=== PATIENT | female | born 1985 | race Caucasian/White ===

== ENCOUNTER 2020-04-27 16:23 | Emergency (ER) | payer BC, SELFPAY ==
[2020-04-27 16:31] VITALS: BP 111/70; PULSE 87; RESP 16; TEMP 37.2; O2SAT 99
--- NOTE | 2020-04-27 16:38 | ED.SKABFB ---
HPI - Skin/Abscess/Foreign Bdy General Chief complaint: Skin/Abscess/Foreign Body Stated complaint: rash on legs/hip Time Seen by Provider: 04/27/20 16:39 Source: patient and RN notes reviewed Mode of arrival: ambulatory Limitations: no limitations History of Present Illness HPI narrative: This is a 34 years old female presents to the office for an evaluation of skin lesions for a few weeks. She contracted ringworm from her cats. Her doctor prescribed her nystatin which has helped some of her lesions; however she continues to develops new lesions. She googled her symptom and found out that there is oral medication option as treatment for ringworm which prompt her to come here. She thinks it may work better to get rid of her lesions faster than topical medication. Her son and also got it. Related Data Home Medications Medication Instructions Recorded Confirmed medroxyprogesterone [Depo-Provera] 150 mg IM [id number] 04/27/20 04/27/20 venlafaxine [Effexor XR] 75 mg PO DAILY 04/27/20 04/27/20 Allergies Allergy/AdvReac Type Severity Reaction Status Date / Time No Known Allergies Allergy Unverified 12/10/18 12:06 Review of Systems Review of Systems: Narrative: CONSTITUTIONAL: Denies fever, chills ENT: Denies congestion CARDIOVASCULAR: Denies chest pain, palpitation RESPIRATORY: Denies dyspnea, wheezing, cough GASTROINTESTINAL: Denies abdominal pain, nausea, vomiting SKIN: reports itchy round lesions in lower extremities and upper extremities. MUSCULOSKELETAL: Denies acute back pain NEUROLOGIC: Denies lightheaded All other systems reviewed are negative, except as documented in HPI. PMFSH Social History Social History Smoking status: Never smoker Alcohol intake: current Comments At time of signature, I agree with nursing past medical, surgical, social and family history. There is no relevant family history pertinent to the presenting complaint. Exam Narrative: Exam Narrative: GENERAL: This is a well-nourished, well-developed patient, in no apparent distress. CARDIOVASCULAR: Regular rate and rhythm without murmurs, gallops, or rubs. RESPIRATORY: Clear to auscultation. Breath sounds equal bilaterally. No wheezes, rales, or rhonchi. GASTROINTESTINAL: Abdomen soft, non-tender, nondistended. Bowel sounds are active. No hepato-splenomegaly, or palpable masses. No guarding. SKIN: lower extremities noted a few central clearing with raised border lesions, some in oval/augustine shapes consistent with ringworms. NEURO: awake, alert, and oriented to person, place and time. There were no obvious focal neurologic abnormalities. Steady gait EXTREMITIES: Normal range of motion. No edema. [place] Coma Scale Eye Opening: Spontaneous 4 [place] Coma Scale Motor: Obeys Commands 6 Flory Coma Scale Verbal: Oriented 5 Course Vital Signs Vital signs: Vital Signs Temperature 98.9 F 04/27/20 16:31 Pulse Rate 87 04/27/20 16:31 Respiratory Rate 16 04/27/20 16:31 Blood Pressure 111/70 04/27/20 16:31 Pulse Oximetry 99 04/27/20 16:31 Temperature 98.9 F 04/27/20 16:31 Pulse Rate 87 04/27/20 16:31 Respiratory Rate 16 04/27/20 16:31 Blood Pressure 111/70 04/27/20 16:31 Pulse Oximetry 99 04/27/20 16:31 MDM - Skin/Abscess/Foreign Bdy MDM Narrative Medical decision making narrative: Discharge instructions reviewed with patient, as well as provided in writing per nursing staff. The instructions also include specific and strict return/GO TO THE ER as well as f/u information. All questions have been answered, and the patient deny any further questions with discharge and discharge plan. Differential Diagnosis Differential diagnosis: Likely abscess of skin or subcutaneous tissue, urticaria, allergic reaction to drug, cellulitis, eczema, impetigo and contact dermatitis Critical Care Time Critical Care Time Critical Care Time: No Discharge
== END 2020-04-27 17:00 | disposition home or self-care (01) ==
PROVIDERS: Emergency Provider Nurse Practitioner; PCP Internal Medicine
DX: B35.4 Tinea corporis (principal); Z86.711 Personal history of pulmonary embolism; F32.9 Major depressive disorder, single episode, unspecified
CPT/HCPCS: 99213; G0463

== ENCOUNTER 2020-05-15 09:02 | Inpatient (IN) | payer BC, SELFPAY ==
[2020-05-15] VITALS (8 sets, daily range): BP systolic 106–138; BP diastolic 56–96; PULSE 74–97; RESP 16–21; TEMP 36.1–36.8; O2SAT 99–100; BMI 38.5
--- NOTE | ~2020-05-15 | CT_ITS ---
EXAMINATION: CTA chest PE protocol DATE: 05/15/2020 10:43 INDICATION: Shortness of breath and chest pain, history of pulmonary embolism TECHNIQUE: Computed tomography angiography (CTA) of the chest was performed with 100 mL Omnipaque-350 intravenous contrast timed to evaluate the pulmonary arteries. Coronal maximum intensity projection 3D-reconstructions were created by the technologist. The dose-length product (DLP) was 460.18 mGy-cm. Automated exposure control and iterative reconstruction technique were employed. COMPARISON: None. FINDINGS: The pulmonary arteries are moderately well-opacified. There are acute emboli in subsegmenta l pulmonary arterial branches of the right lower lobe. There are areas of dependent atelectasis or sc arring in the right lung. The lungs are free of focal airspace opacities. No pleural effusion or pneu mothorax is identified. No pathologically enlarged thoracic lymph nodes are identified. The heart siz e is normal. There is mild thoracic spondylosis. IMPRESSION: 1. Pulmonary emboli in subsegmental branches of the right lower lobe. These findings were discussed with Dr. Anuradha Anaya MD in the Emergency Department at 1102 hours on 05/15/2020. Reviewed, dictated and finalized at location A. IMPRESSION: 1. Pulmonary emboli in subsegmental branches of the right lower lobe. These findings were discussed with Dr. Anuradha Anaya MD in the Emergency Depar tment at 1102 hours on 05/15/2020.
--- NOTE | ~2020-05-15 | US_ITS ---
EXAMINATION: US venous doppler [facility] DATE: 05/16/2020 11:46 INDICATION: Pulmonary embolism, shortness of breath and chest pain TECHNIQUE: Jefferson scale images without and with compression and Doppler images of the bilateral lower e xtremity veins were obtained. COMPARISON: None FINDINGS: The right common femoral vein, profunda femoral vein, femoral vein, popliteal vein, peroneal trunk, p osterior tibial veins, and greater saphenous vein are patent. The left common femoral vein, profunda femoral vein, femoral vein, popliteal vein, peroneal trunk, po sterior tibial veins, and greater saphenous vein are patent. IMPRESSION: 1. Patent bilateral lower extremity veins. No evidence of deep venous thrombosis. Reviewed, dictated and finalized at location A. IMPRESSION: 1. Patent bilateral lower extremity veins. No evidence of deep venous thrombosi s.
--- NOTE | ~2020-05-15 | XR_ITS ---
EXAMINATION: XR chest 2V DATE: 05/15/2020 10:20 INDICATION: Shortness of breath and chest pain TECHNIQUE: PA and lateral views of the chest are obtained. COMPARISON: None available FINDINGS: The lungs are free of acute opacities. There is no pleural effusion or pneumothorax. The ca rdiomediastinal silhouette is normal. The visualized bones and soft tissues are unremarkable. Surgica l clips in the right upper quadrant are likely from prior cholecystectomy. IMPRESSION: 1. No acute cardiopulmonary abnormality. Reviewed, dictated and finalized at location A.
--- NOTE | 2020-05-15 09:17 | ECG_ITS ---
Measurements Intervals [employer] Rate: 88 P: 2 CT: 121 QRS: 50 QRSD: 87 T: 25 QT: 357 QTc: 433 Interpretive Statements SINUS RHYTHM NORMAL ECG Electronically Signed On 05-15-2020 10:13:25 CDT by Ye Griffin D.O.
--- NOTE | 2020-05-15 09:18 | ED.SOB ---
HPI - SOB/Dyspnea General Chief Complaint: Shortness of Breath/Dyspnea Stated Complaint: sob Time Seen by Provider: 05/15/20 09:06 History of Present Illness HPI Narrative: Patient presents to the ED for chest pain with deep breaths. She points to her left side under the arm. She said is a 7 out of 10. It goes away completely when she stops breathing. She has a history of pneumonia on that side. She also has a history of pulmonary embolus. She has no cough, fever,, sweats. MD elicited complaint: shortness of breath and pain with inspiration Pertinent past history: pneumonia and PE Onset (ago): day(s) Timing: intermittent Severity: moderate Exacerbating factors: deep breaths Relieving factors: nothing Known history of: PE and other (Pneumonia) Associated symptoms: denies other symptoms Treatment prior to arrival: none Related Data Home oxygen amount: none Home Medications Medication Instructions Recorded Confirmed medroxyprogesterone [Depo-Provera] 150 mg IM [id number] 04/27/20 04/27/20 venlafaxine [Effexor XR] 75 mg PO DAILY 04/27/20 04/27/20 Allergies Allergy/AdvReac Type Severity Reaction Status Date / Time No Known Allergies Allergy Unverified 05/15/20 09:14 Review of Systems Review of Systems: Narrative: CONSTITUTIONAL: Denies fever, chills, or sweats. EYES: Denies visual changes, redness, or discharge. ENT: Denies rhinorrhea, congestion, sore throat, or otalgia. CARDIOVASCULAR: She has chest pain, but not palpitations, or edema. RESPIRATORY: Denies cough or dyspnea. GASTROINTESTINAL: Denies abdominal pain, nausea, vomiting, or diarrhea. GENITOURINARY: Denies dysuria or hematuria. SKIN: Denies rash or itching. MUSCULOSKELETAL: Denies back pain, joint pain, or myalgia. NEUROLOGIC: Denies headache, numbness, or weakness. PSYCHIATRIC: Denies anxiety or depression. All systems reviewed & are unremarkable except as noted in HPI and below PMFSH Past Medical History Medical History Depression Pneumonia Pulmonary embolus Surgical History Surgical History (Updated 05/15/20 @ 09:22 by Anuradha Anaya MD) History of History of cholecystectomy Social History Social History Smoking status: Never smoker Alcohol intake: current Gender identity (if verbalized by the patient): Female Exam Narrative: Exam Narrative: GENERAL: Well-appearing, well-nourished, and in no acute distress. [place] color on the tips of her hair. HEAD: Normocephalic, atraumatic. EYES: PERRLA and EOMI. ENT: Nares clear, no rhinorrhea or epistaxis. Mucous membranes moist. NECK: Supple. CHEST: Clear to auscultation. No respiratory distress. HEART: Regular rate and rhythm. No murmur heard. Normal peripheral pulses. ABDOMEN: Soft, nontender, nondistended, normal active bowel sounds. EXTREMITIES: Normal range of motion. No edema. SKIN: Warm, dry, no rash. NEURO: No focal deficits. Alert and oriented x3. PSYCH: Normal mood and affect. Course Reevaluation(s) Reevaluation #1: Went in the room to tell the patient about her pulmonary embolus in the right lower lobe. She understands but is not pleased. Private is Dr. George in [place]. He managed her Coumadin last time. I will call and see whether he wants to manage this outpatient or whether I need to admit her. Reevaluation #2: Unable to reach Dr. George so we will admit her here to start her anticoagulation. Date: 05/15/20 Time: 11:25 Consultations Consultation #1: Calling the hospitalist to admit to start her on anticoagulation therapy for her pulmonary embolus. She had also asked the nurse for something stronger for her pain and I ordered a Percocet. Dr. Cook accepts. Date: 05/15/20 Time: 11:26 Vital Signs Vital signs: Vital Signs Temperature 97.0 F L 05/15/20 09:08 Pulse Rate 87 05/15/20 09:08 Respiratory Rate 18 05/15/20 09:08 Blood Press
[2020-05-15 09:33] LABS: Basophils Percent Auto 0.5 % (0.2-1.2); Eosinophils Absolute Auto 0.1 K/mm3 (0-0.3); Eosinophils Percent Auto 1.4 % (0-4.4); Hematocrit 41.8 % (37.0-47.0); Hemoglobin 13.7 g/dL (12.0-15.0); Immature Granulocyte Absolute 0.02 K/mm3 (0.00-0.031); Immature Granulocyte Percent A 0.3 % (0-0.5); Lymphocytes Absolute Auto 2.59 K/mm3 (0.9-3.2); Lymphocytes Percent Auto 34.1 % (18.3-44.2); Mean Corpuscular HGB Conc 32.8 g/dl (32-36); Mean Corpuscular Hemoglobin 28.8 pg (26-34); Mean Platelet Volume 10.3 fl (7.4-10.4); Monocytes Absolute Auto 0.4 K/mm3 (0.1-0.6); Monocytes Percent Auto 5.4 % (2.6-8.5); Neutrophils Absolute Auto 4.4 K/mm3 (1.3-6.7); Neutrophils Percent Auto 58.3 % (45.5-73.1); Platelet Count Result 242 k/mm3 (150-375); Red Blood Count 4.75 M/mm3 (4.2-5.4); Red Cell Distribution Width 13.2 % (11.5-14.5); White Blood Count 7.6 K/mm3 (4.5-10.0)
[2020-05-15] MEDS: KETOROLAC 15 MG/ML VIAL (*BKC) IV PUSH (09:35)
[2020-05-15 09:45] LABS: Alanine Aminotransferase 33 U/L (4-35); Albumin Level 4.4 g/dL (3.5-5.1); Alkaline Phosphatase 77 U/L (38-126); Anion Gap 8 mmol/L (8-16); Aspartate Amino Transferase 33 U/L (14-36); Bilirubin,Total 0.3 mg/dL (0.2-1.3); Blood Urea Nitrogen 10 mg/dL (7-17); Calcium 9.3 mg/dL (8.4-10.2); Carbon Dioxide 22 mmol/L (22-30); Chloride 107 mmol/L (98-107); Estimated CRCL calculation 122 ml/min; Estimated Glomerular Filt Rate > 60; Glucose 125 mg/dL (65-105); Potassium 4.1 mmol/L (3.4-5.0); Sodium 137 mmol/L (137-145)
[2020-05-15 09:47] LABS: Prothrombin Time 13.3 Seconds (11.1-14.7)
[2020-05-15 09:50] LABS: D Dimer 1.03 ug/mL (<0.48)
[2020-05-15] MEDS: ENOXAPARIN 120 MG/0.8 ML SYRINGE 105 MG SUB-Q (11:19)
[2020-05-15] MEDS: oxyCODONE/ACETAMINOPHEN 5-325 MG TABLET 1 TABLET PO (11:28)
[2020-05-15] MEDS: WARFARIN (*PBKC) 5 MG TABLET PO (11:38)
--- NOTE | 2020-05-15 12:10 | ADMGEN ---
This patient, Dinora Singh, was admitted to Medical Room 252-01. Patient oriented to hospital policies and general routines including ID bracelet, bed and alarms, visiting hours, pain management, procedures, bathroom and other care routines, personal items, smoking policy, room service/diet, and visiting hours. Valuables list has been completed. Information on how to activate the Rapid Response Team has been discussed. Patient are encouraged to report perceived risks to care and to ask questions if they do not understand what they are told or what they should do.
--- NOTE | 2020-05-15 20:31 | PM.IMHP ---
H&P: HPI History of Present Illness Date/Time: 05/15/20 20:31 Chief complaint: Pulmonary embolism Narrative: Dinora Singh is a 34 year old female Who tells me that she has a history of factor v leiden and has had a blood clot in the past. She stated she had been on Coumadin for short period time and then she did subcu Lovenox while she was in did that during her whole . She is not taking any anticoagulation. She was told by willower that she was not supposed to be on any type of per controlled at all. She went to her OBGYN who was giving her Depo-Provera and said it would be okay. We discussed this and I explained that that is 1 the side effects of the Depo-Provera. The patient came into the emergency room today with complaints of chest pain with deep breaths. She points to her left side under the arm. She said it was 7/10. When I went in the room she said it was her right upper chest that was hurting. She said it was a sharp pain in nothing relieved it she said that the pain medicine they gave to early year just to the edge off. She has had history of pneumonia in the past. She also has a history of depression. I spent approximately 35 minutes in the room with the patient. She denies any calf pain but said that she started out with DVTs in the past and then went to her lungs. We had a long discussion about whether not to continue with the Coumadin or switch her to Xarelto. Weeks plain the pros and cons and she decided on Xarelto. date ofservice 05/15/2020 Review of Systems Review of Systems: All systems reviewed & are unremarkable except as noted in HPI and below Constitutional: Constitutional: Reports as per HPI and Reports no additional constitutional complaints Eyes: Eyes: Reports as per HPI and Reports no additional eye complaints ENT: Reports system reviewed and no additional complaints, except as documented and Reports Normal hearing present Cardiovascular: Cardiovascular: Reports no additional cardiovascular complaints Respiratory: Respiratory: Reports no additional respiratory complaints and Reports no additional respiratory complaints Gastrointestinal: Gastrointestinal: Reports as per HPI and Reports no additional gastrointestinal complaints Musculoskeletal: Musculoskeletal: Reports no additional musculoskeletal complaints Integumentary/Breasts: Skin/Breast: Reports system reviewed and no additional complaints, except as docu and Reports as per HPI Neurologic: Reports system reviewed and no additional complaints, except as documented, Reports as per HPI and Reports Normal hearing present Psychiatric: Psychiatric: Reports no additional psychiatric complaints and Reports as per HPI Endocrine: Endocrine: Reports no additional endocrine complaints Hematologic/Lymphatic: Hematologic/Lymphatic: Reports no additional hematologic/lymphatic complaints Allergic/Immunologic: Allergic/Immunologic: Reports no additional allergic/immunologic complaints [facility] Past Medical History Medical History (Updated 05/15/20 @ 20:38 by Dinora Lyn NP) Depression Factor 5 Leiden mutation, heterozygous Pneumonia Pulmonary embolus Surgical History Surgical History (Updated 05/15/20 @ 20:35 by Dinora Lyn NP) History of x1 History of cholecystectomy Family History Family History Grandparent Acute myocardial infarction Cerebrovascular accident Cancer of eye Diabetes mellitus Social History Social History (Updated 05/15/20 @ 20:36 by Dinora Lyn NP) Social History: the patient stated that she used to smoke other people cigarettes but did not find cigarettes on her home. She would just smoke socially and drinks socially. She stated that she would by cigarettes but is somebody else had a cigarette she would smoke it. She smoked marijuana in the past but not recently. Her is a durable power detective [employer] for [employer]
--- NOTE | 2020-05-16 | ECHO_ITS ---
Patient Info Name: Dinora Singh Age: 34 years : 1985 Gender: Female Ht: 66 in Wt: 239 lbs BSA: 2.30 m2 HR: 86 bpm BP: 110 / 64 mmHg Heart Rhythm: Sinus Rhythm Technical Quality: Good Exam Date: 05/16/2020 11:02 AM Exam Location: [facility] Card Pulmonary Patient Status: Inpatient Admit Date: 05/15/2020 Staff Ordering Physician: Dinora Lyn NP Lap Maker: Cole Ordaz RDCS Attending Provider: Kamryn Cook MD Referring Physician: Riki BRUSH; Exam Type: CA echo doppler color flow Study Info Indications I26.99 - Other pulmonary embolism without acute cor pulmonale Complete two-dimensional, color flow and Doppler transthoracic echocardiogram is performed. Strain analysis performed. History/Risk Factors Pulmonary embolism. Summary 1. Left ventricular chamber dimension is normal. 2. Left ventricular systolic function is normal, estimated at 60-65%. 3. The left ventricular diastolic function is normal. 4. E/e' 6 is not elevated. 5. Global longitudinal strain is slightly abnormal at -16.9%. 6. There is trace mitral valve regurgitation. 7. No pulmonary hypertension, estimated pulmonary arterial systolic pressure is 29 mmHg. 8. There is trace pulmonic regurgitation. Left Ventricle E/e' 6 is not elevated. Global longitudinal strain is slightly abnormal at -16.9%. Left ventricular chamber dimension is normal. Left ventricular systolic function is normal, estimated at 60-65%. The left ventricular diastolic function is normal. Right Ventricle Right ventricular chamber dimension is normal. Right ventricular systolic function is normal. Left Atria Left atrial chamber dimension is normal. Right Atria Right atrial chamber dimension is normal. Aortic Valve The aortic valve is trileaflet. There is no aortic valve stenosis. There is no aortic valve regurgitation. Pulmonic Valve There is trace pulmonic regurgitation. Mitral Valve There is no mitral valve stenosis. There is trace mitral valve regurgitation. Tricuspid Valve There is no tricuspid valve regurgitation. No pulmonary hypertension, estimated pulmonary arterial systolic pressure is 29 mmHg. Pericardium/Pleural There is no pericardial effusion. Inferior Vena Cava Normal inferior vena cava with >50% collapse upon inspiration consistent with normal right atrial pressure, 5 mmHg. Aorta The aortic root size at the sinus of Valsalva is normal. Left Ventricular Outflow Tract Name Value Normal LVOT 2D LVOT Diameter 2.0 cm LVOT Doppler LVOT Peak Gradient 3 mmHg LVOT Mean Gradient 2 mmHg LVOT VTI 18 cm LVOT VTI/AV VTI Ratio 0.8 LVOT Stroke Volume 55 ml LVOT CO 4.5 l/min LVOT CI 2.0 l/min/m2 Mitral Valve Name Value Normal
[2020-05-16 05:24] VITALS: BP 110/64; PULSE 79; RESP 16; TEMP 36.7; O2SAT 98
[2020-05-16 05:52] LABS: Basophils Percent Auto 0.5 % (0.2-1.2); Eosinophils Absolute Auto 0.2 K/mm3 (0-0.3); Eosinophils Percent Auto 2.5 % (0-4.4); Hematocrit 37.5 % (37.0-47.0); Hemoglobin 12.5 g/dL (12.0-15.0); Immature Granulocyte Absolute 0.02 K/mm3 (0.00-0.031); Immature Granulocyte Percent A 0.3 % (0-0.5); Lymphocytes Absolute Auto 3.02 K/mm3 (0.9-3.2); Lymphocytes Percent Auto 47.9 % (18.3-44.2); Mean Corpuscular HGB Conc 33.3 g/dl (32-36); Mean Corpuscular Hemoglobin 29.1 pg (26-34); Mean Corpuscular Volume 87.2 fl (80-100); Mean Platelet Volume 10.3 fl (7.4-10.4); Monocytes Absolute Auto 0.5 K/mm3 (0.1-0.6); Monocytes Percent Auto 7.9 % (2.6-8.5); Neutrophils Absolute Auto 2.6 K/mm3 (1.3-6.7); Neutrophils Percent Auto 40.9 % (45.5-73.1); Platelet Count Result 218 k/mm3 (150-375); Red Cell Distribution Width 13.2 % (11.5-14.5); White Blood Count 6.3 K/mm3 (4.5-10.0)
[2020-05-16 06:12] LABS: Magnesium 1.9 mg/dL (1.6-2.3)
[2020-05-16 08:09] LABS: Free T4 Free Thyroxine Reflex 0.83 ng/dL (0.78-2.19)
[2020-05-16] MEDS: RIVAROXABAN 15 MG TABLET PO ×2 (09:06→16:18)
[2020-05-16] MEDS: MULTIVITAMINS THERAPEUTIC TAB (*BKC) 1 TABLET PO (09:06)
[2020-05-16] MEDS: VENLAFAXINE HCL XR 75 MG CAP.ER.24H PO (09:06)
--- NOTE | 2020-05-16 10:53 | PM.DS ---
DS: Admitting Diagnosis Admitting Diagnosis Admitting Diagnosis: Pulmonary embolism DS: Discharge Diagnosis Discharge Diagnosis (1) Pulmonary embolism: Qualifiers: Acute cor pulmonale presence: without acute cor pulmonale Chronicity: acute Pulmonary embolism type: unspecified Qualified Code(s): I26.99 - Other pulmonary embolism without acute cor pulmonale Code(s): I26.99 - Other pulmonary embolism without acute cor pulmonale Status: Acute Assessment and Plan: As evident on CTA chest - PEs in subsegmental branches of the right lower lobe. Echo and venous dopplers pending. She has some soreness in her right calf but nothing like her previous DVT. CC worked with patient and she is agreeable to Xarelto therapy. She will follow up with her PCP as an outpatient in length of a/c and if she can stay on xarelto. Instructed her to watch for signs of bleeding. Echo shows no signs of right heart strain Xarelto 15 mg BID through 06/05 Xarelto 20 mg every evening starting on 06/06; she is to discuss with PCP the duration F/u with PCP Will provide a few days of 7.5 Valera; further pain management per PCP (2) Depression: Code(s): F32.9 - Major depressive disorder, single episode, unspecified Status: Chronic Assessment and Plan: Continue with Effexor for now, but we discussed having her follow up with her PCP for d/c medication as this can increase risk of bleeding with a/c F/u with PCP DS: Summary Hospital Course Reason for hospitalization: Right sided subsegmental PEs Hospital Course: Patient is a 34 yo F with history of Factor V leiden, previous DVT, and Depression who presented to the ED on 05/15 with complaints of shortness of breath and pleuritic chest pain. While in the ED CTA of chest found right lower lobe subsegmental PEs. Patient admitted under this setting. Please see H&P for further details. Presenting VS: Temp Pulse Resp BP Pulse Ox 97.0 F L 87 18 136/74 100 05/15/20 09:08 05/15/20 09:08 05/15/20 09:08 05/15/20 09:08 05/15/20 09:08 Presenting Pertinent labs: D-dimer 1.03, TSH 5.350, normal free T4/total T3. CBC, coag, chem otherwise unremarkable Micro: none Imaging: Chest X-Ray 05/15/20 10:20 IMPRESSION: 1. No acute cardiopulmonary abnormality. Chest CTA 05/15/20 10:51 IMPRESSION: 1. Pulmonary emboli in subsegmental branches of the right lower lobe. These findings were discussed with Dr. Anuradha Anaya MD in the Emergency Department at 1102 hours on 05/15/2020. Venous Doppler Study 05/16/20 11:51 IMPRESSION: 1. Patent bilateral lower extremity veins. No evidence of deep venous thrombosis. Echo 05/16/20 Summary 1. Left ventricular chamber dimension is normal. 2. Left ventricular systolic function is normal, estimated at 60-65%. 3. The left ventricular diastolic function is normal. 4. E/e' 6 is not elevated. 5. Global longitudinal strain is slightly abnormal at -16.9%. 6. There is trace mitral valve regurgitation. 7. No pulmonary hypertension, estimated pulmonary arterial systolic pressure is 29 mmHg. 8. There is trace pulmonic regurgitation. ECG: Interpretive Statements SINUS RHYTHM NORMAL ECG Patient was admitted to the hospitalist service for further evaluation/management of PEs. Patient initially placed on therapeutic lovenox and warfarin from the ED. She was subsequently switched to Xarelto therapy after discussion of the different therapies. CC worked with patient for financial services technician for paying for Xarelto for at least the first month. Should she not be able to afford this medication, she would discuss with her PCP and likely go on Lovenox injections. Patient's pain was still present but improved; she was provided with short course of Valera to help with pain after discharge; OTC tylenol was recommended for supplemental pain relief. Venous dopplers were negative for DVT an
[2020-05-16] MEDS: MORPHINE SULFATE 2 MG/ML INJ 1 MG IV PUSH (11:58)
[2020-05-16 12:46] LABS: Total Triiodothyronine (T3) 1.21 NG/ML (0.97-1.69)
[2020-05-16 14:00] VITALS: BP 112/60; PULSE 82; RESP 16; TEMP 36.7; O2SAT 98
== END 2020-05-16 16:30 | disposition home or self-care (01) | DRG 176 ==
LOC: ANHED 11:24 → ANH2MED 11:43
PROVIDERS: Nurse Practitioner; Admitting Provider Family Medicine; Emergency Provider Emergency Medicine; PCP Internal Medicine; Visit Provider Family Medicine
DX: I26.99 Other pulmonary embolism without acute cor pulmonale (principal); F32.9 Major depressive disorder, single episode, unspecified; Z87.891 Personal history of nicotine dependence; Z90.49 Acquired absence of other specified parts of digestive tract
CPT/HCPCS: 36415; 71046; 71275; 80053; 81025; 81241; 83735; 84439; 84443; 84480; 85025; 85380; 85610; 93005; 93306; 93970; 96372; 96374; 99285; A9270; J1650; J1885; J2270; Q9967

== ENCOUNTER 2024-08-02 14:54 | Outpatient (CLI) | payer OTHER, SELFPAY ==
--- NOTE | ~2024-08-02 | US_ITS ---
Pelvic ultrasound. Clinical History: First trimester , establish dates and viability Technique: Realtime transabdominal and transvaginal scanning of the pelvis was performed. Color flow Doppler and Doppler spectral analysis were performed. Findings: The uterus is anteverted, and contains an intrauterine gestation. [place]-rump length of 1.8 cm corresponds to an estimated gestational age of 8 weeks 2 days. heart rate is 165 bpm. Neither ovary seen. No adnexal mass seen. There is no evidence of free fluid in the cul de sac. Impression: Live intrauterine gestation, with estimated gestational age of 8 weeks 2 days. heart rate is 16 5 bpm. Sonographic UVALDO is 03/12/2025. Reviewed, dictated and finalized at location . RAL MANAGER Impression: Live intrauterine gestation, with estimated gestational age of 8 weeks 2 days. heart rate is 165 bpm. Sonographic UVALDO is 03/12/2025.
== END 2024-08-02 14:55 | disposition home or self-care (01) ==
LOC: MICIMG 14:55
PROVIDERS: PCP Nurse Practitioner Women's Health; Visit Provider Nurse Practitioner Women's Health
DX: Z36.87 Encounter for antenatal screening for uncertain dates (principal)
CPT/HCPCS: 76801

== ENCOUNTER 2024-12-12 15:41 | Observation (INO) | payer OTHER, SELFPAY ==
[2024-12-12] VITALS (7 sets, daily range): BP systolic 99–112; BP diastolic 57–91; PULSE 85–92; BMI 41.3
--- NOTE | ~2024-12-12 | US_ITS ---
EXAMINATION: US OB limited DATE: 12/12/2024 17:14 INDICATION: Spotting, Check placenta, cervical length. . TECHNIQUE: Real-time ultrasound of the pelvis was performed. COMPARISON: 08/02/2024 FINDINGS: There is a single living fetus in breech presentation, longitudinal lie. The placenta is posterior, normal in appearance, and 6.1 cm from the cervix. Cervical length 4.1 cm. A myometrial contraction wa s present during initial imaging which did not persist in repeated imaging. heart rate is 148 b pm. The amniotic fluid index is 19.5 cm, which is normal (5th to 95th percentile is 9.7 to 22.3 cm). IMPRESSION: Single living fetus in breech presentation. Posterior placenta, well distant from the cervix. Cervical length 4.1 cm. Reviewed, dictated and finalized at location K.
--- NOTE | 2024-12-12 15:45 | OBADM ---
This patient, Dinora Singh, admitted to the OB room [facility] for observation. Patient/family oriented to hospital policies and general routines including ID bracelet, bed and alarms, visiting hours, pain management, procedures, bathroom and other care routines, personal items, smoking policy, room service/diet, and visiting hours. Patient/Family are encouraged to report perceived risks to care and to ask questions if they do not understand what they are told or what they should do.
--- OUTSIDE RECORDS SUMMARY | 2024-12-12 15:47 | XMS_ITS | Referral Summary ---
Author Organization [address] Address [address] [place] [id number] Care Team Providers Care Chopper Feeder Name Role Phone Collin Taylor MD Unavailable [phone] J Carlos Araujo MD Primary Care Provider Encounters Date Type Department Care Team Description 11/07/2024 11:04 AM MATERIAL MAN - 11/07/2024 1:54 PM [facility] Emergency [facility] Emergency Department [address] [place], [place] [id number] Influenza A (Primary Dx); Strep pharyngitis; , unspecified gestational age Discharge Disposition: Discharge to home or self care from Last 3 Months Allergies No known active allergies Medications enoxaparin (LOVENOX) 80 mg/0.8 mL syringe DAILY. INJECT 0.8 ML SUBCUTANEOUSLY TWICE A DAY. 07/07/20 24 Active vit no.124/iron/fo lic ( VITAMIN ORAL) Take by mouth Ac tive amoxicillin (AMOXIL) 500 mg tablet/capsule Take 1 tablet/capsule (500 mg total) by mouth 2 (two) times a day for 10 days 20 tablet/capsu le 11/07/19 25 025 Active Problems Problem Noted Date Diagnosed Date Chronic bilateral low back pain with bilateral s ciatica 08/12/2024 Class 2 severe obesity due t o excess calories with serious comorbidity and body mass index (BMI) of 38.0 to 38.9 in adult 11/10/2023 Assessment & Plan (08/12/2024 10:23 AM MATERIAL MAN): Wt Readings from Last 3 Encounters: 08/12/24 108.5 kg (239 lb 1.6 oz) 08/03/24 106.9 kg (235 lb 9.6 oz) 07/19/24 107 kg (236 lb) BMI Readings from Last 3 Encounters: 08/12/24 38.61 kg/m 08/03/24 38.03 kg/m 07/19/24 38.09 kg/m Not at goal of bmi <30 Continue diet and exercise BMI Follow-up includes: nutrition counseling and exercise counseling. Stop phetnermine and Topamax since she is Assessment & Plan (03/04/2024 4:31 PM CDT): Wt Readings from Last 3 Encounters: 03/04/24 105.3 kg (232 lb 3.2 oz) 12/15/23 110.7 kg (244 lb) 11/10/23 112.9 kg (249 lb) BMI Readings from Last 3 Encounters: 03/04/24 37.50 kg/m 12/15/23 39.38 kg/m 11/10/23 40.21 kg/m Not at goal of bmi <30 Continue diet and exercise BMI Follow-up includes: nutrition counseling and exercise counseling. Not at goal Worsening C/w phentermine 30 mg + topamax 25 mg bid Assessment & Plan (12/15/2023 12:32 PM CDT): Wt Readings from Last 3 Encounters: 12/15/23 110.7 kg (244 lb) 11/10/23 112.9 kg (249 lb) 11/01/23 108.9 kg (240 lb) BMI Readings from Last 3 Encounters: 12/15/23 39.38 kg/m 11/10/23 40.21 kg/m 11/01/23 38.74 kg/m Not at goal of bmi <30 Continue diet and exercise BMI Follow-up includes: nutrition counseling and exercise counseling. Not at goal Worsening C/w phentermine 30 mg + topamax 25 mg bid Assessment & Plan (11/10/2023 10:43 AM MATERIAL MAN): Wt Readings from Last 3 Encounters: 11/10/23 112.9 kg (249 lb) 11/01/23 108.9 kg (240 lb) 10/31/23 111.1 kg (245 lb) BMI Readings from Last 3 Encounters: 11/10/23 40.21 kg/m 11/01/23 38.74 kg/m 10/31/23 39.54 kg/m Not at goal of bmi <30 Continue diet and exercise BMI Follow-up includes: nutrition counseling and exercise counseling. Not at goal Worsening Restart phentermine 30 mg + topamax 25 mg bid Vitamin B12 deficiency 08/06/2023 Dizziness and giddiness 08/01/2022 Assessment & Plan (08/01/2022 9:20 AM CDT): No orthostatic hypotension present. Consider increasing amount of daily water intake. Trial of Meclizine. Labs ordered. Referred to neurology for further eval/mgmt. Sleep disturbances 08/01/2022 Assessment & Plan (08/01/2022 9:18 AM CDT): Recommended OTC benadryl prn. Notify our office if no improvement. Skin lesion of back 06/14/2022 Assessment & Plan (06/14/2022 7:22 PM CDT): Referred to dermatology for further eval/mgmt. Hair loss 06/14/2022 Assessment & Plan (06/14/2022 7:21 PM CDT): Labs ordered, referred to dermatology for further eval/mgmt. Atopic dermatitis 06/14/2022 Assessment & Plan (06/14/2022 7:23 PM CDT): Trial of topical steroid, will follow. Annual physical exam 08/13/2021 Assessment & Plan (08/12/2024 10:24 AM MATERIAL MAN): Discussed lifestyle modifications, diet and exercise. Routine blood work ordered/reviewed today. Yearly vision and dental examinations. Assessment & Plan (08/06/2023 11:58 AM MATERIAL MAN): Discussed lifestyle modifications, diet and exercise. Routine blood work ordered/reviewed today. Yearly vision and dental examinations. Assessment & Plan (08/13/2021 8:27 AM MATERIAL MAN): -Recommended: Healthy diet. Avoiding junk food/fast food. -30 minutes of exercise most days of the week. Increase to 45 minutes for weight loss. Immunizations: Up to date lose weight, increase physical activity, follow low fat diet, continue present plan, routine labs ordered, call if any problems Follow-up in 6 months. Vitamin D deficiency 01/19/2021 Assessment & Plan (01/15/2023 3:44 PM CDT): Not really supplementing - does occasionally take a multi vitamin Will start vit D 2000 units and see if taht helps with Assessment & Plan (01/19/2021 11:54 AM CDT): Not currently taking any vitamin-D supplements. Labs ordered. Anticoagulant long-term use 01/19/2021 Moderate episode of recurrent major depressive d isorder 01/19/2021 Overview (01/19/2021): Was treated in the past with Wellbutrin and Effexor XR. Patient stated on 01/19/2021 that she was fully recovered from her depression and not on any medications. She discontinue her medications on her own. Assessment & Plan (08/12/2024 10:23 AM MATERIAL MAN): Stable at thsi time Stopped both lexapro and wellbutrin Assessment & Plan (03/04/2024 4:30 PM CDT): Stable at thsi time Continue lexapro 10 gm every day, wellbutrin 150 mg bid Assessment & Plan (12/15/2023 12:32 PM CDT): C/w lexapro 10 mg every day, continue wellbutrin 150 mg bid Stable otherwise Assessment & Plan (11/10/2023 10:42 AM MATERIAL MAN): Stable with lexapro 10 mg every day, continue wellbutrin 150 mg bid Assessment & Plan (08/06/2023 11:43 AM MATERIAL MAN): Not at goal Had no improvement with lexpro 20 mg Will decrease back to 10 mg And start Wellbutrin 150 mg bid Assessment & Plan (06/19/2023 11:58 AM CDT): C/w lexapro 20 mg every day Assessment & Plan (04/28/2023 11:47 AM CDT): Improved but having significant fatigyue Will increase lexapro to 20 mg every day If side effects she will let us jknow and we will decrease it back Assessment & Plan (01/15/2023 3:41 PM CDT): Has had significant improvement at this time in sx But does feel better with the medication and would like to keep current dose. Continue lexapro 10 mg every day, follow up in abotu 3 months if any changes Assessment & Plan (12/11/2022 11:19 AM CDT): Finds it hard to get through the day and after she uses her energy on her kids she is exhausted Side effects previously to effexor Will do trial with lexapro 10 mg every day - can decrease to 5 if some relief but to stimulating otherwise may need to increase further Follow up in 4 weeks idf no improvement may need psychiatry referral in the future Patient reiterated no suicidal thoughts at this time; take medication as directed; contact 911 and go to the ER if becomes suicidal; discussed side effects of medication with patient; encouraged healthy diet and exericise; encouraged patient to see a counselor Assessment & Plan (01/19/2021 11:54 AM CDT): Patient reports that her symptoms are resolved and she is no longer on any medications. She discontinued them on her own. History of pulmonary embolism 04/23/2013 Overview (01/19/2021): Hx pulmonary embolism 2012 after being on OCPs 2nd PE Sept 2019 after being on Depo-Provera for 19 months Assessment & Plan (08/12/2024 10:29 AM MATERIAL MAN): Following with ob now as she is Continue lovenox 80 mg every day Assessment & Plan (01/19/2021 11:56 AM CDT): I currently do not have any records regarding CT scans with diagnosed pulmonary embolism in her EMR at this time. Patient has gone on and off medications for prevention. I do not see that she has had any workups regarding hypercoagulable states. Will refer to hematology for further evaluation and management. Pure hypercholesterolemia Assessment & Plan (08/12/2024 10:24 AM MATERIAL MAN): Lab Results Component Value Date CHOL 244 (H) 12/16/2023 CHOL 214 (H) 04/28/2023 CHOL 177 02/11/2022 Lab Results Component Value Date HDL 45 12/16/2023 HDL 47 04/28/2023 HDL 39 (L) 02/11/2022 Lab Results Component Value Date LDLCALC 165 (H) 12/16/2023 LDLCALC 125 04/28/2023 LDLCALC 93 02/11/2022 LDL 213 (H) 05/04/2013 Lab Results Component Value Date TRIG 168 (H) 12/16/2023 TRIG 209 (H) 04/28/2023 TRIG 224 (H) 02/11/2022 No results found for: POCCHDLR No results found for: POCNONHDL No results found for: POCCHLPL Elevated trigs and cholesterol Continue current regimen Assessment & Plan (03/04/2024 4:32 PM CDT): Lab Results Component Value Date CHOL 244 (H) 12/16/2023 CHOL 214 (H) 04/28/2023 CHOL 177 02/11/2022 Lab Results Component Value Date HDL 45 12/16/2023 HDL 47 04/28/2023 HDL 39 (L) 02/11/2022 Lab Results Component Value Date LDLCALC 165 (H) 12/16/2023 LDLCALC 125 04/28/2023 LDLCALC 93 02/11/2022 LDL 213 (H) 05/04/2013 Lab Results Component Value Date TRIG 168 (H) 12/16/2023 TRIG 209 (H) 04/28/2023 TRIG 224 (H) 02/11/2022 No results found for: POCCHDLR No results found for: POCNONHDL No results found for: POCCHLPL Elevated trigs and cholesterol Continue current regimen Assessment & Plan (04/28/2023 11:39 AM CDT): Lab Results Component Value Date CHOL 177 02/11/2022 CHOL 298 (H) 01/19/2021 CHOL 279 (H) 12/15/2018 Lab Results Component Value Date HDL 39 (L) 02/11/2022 HDL 42 01/19/2021 HDL 40 12/15/2018 Lab Results Component Value Date LDLCALC 93 02/11/2022 LDLCALC 211 (H) 01/19/2021 LDLCALC 174 (H) 12/15/2018 LDL 213 (H) 05/04/2013 Lab Results Component Value Date TRIG 224 (H) 02/11/2022 TRIG 223 (H) 01/19/2021 TRIG 324 (H) 12/15/2018 No results found for: POCCHDLR No results found for: POCNONHDL No results found for: POCCHLPL Elevated trigs and cholesterol Continue current regimen Assessment & Plan (12/11/2022 11:08 AM CDT): Lab Results Component Value Date CHOL 177 02/11/2022 CHOL 298 (H) 01/19/2021 CHOL 279 (H) 12/15/2018 Lab Results Component Value Date HDL 39 (L) 02/11/2022 HDL 42 01/19/2021 HDL 40 12/15/2018 Lab Results Component Value Date LDLCALC 93 02/11/2022 LDLCALC 211 (H) 01/19/2021 LDLCALC 174 (H) 12/15/2018 LDL 213 (H) 05/04/2013 Lab Results Component Value Date TRIG 224 (H) 02/11/2022 TRIG 223 (H) 01/19/2021 TRIG 324 (H) 12/15/2018 No results found for: POCCHDLR No results found for: POCNONHDL No results found for: POCCHLPL ldl now at goal Continue crestor 10 mg Remains with elevated trigs - advised to avoid fatty foods/deep fried foods. All oils can increase trigs Assessment & Plan (06/14/2022 7:24 PM CDT): LDL at goal of <100. Low chol diet recommended. Cont current Rx meds. Assessment & Plan (02/11/2022 10:49 AM CDT): Low cholesterol diet recommended. Labs ordered, will follow. Cont current Rx meds. Assessment & Plan (08/13/2021 8:27 AM MATERIAL MAN): Lipid abnormalities are stable, reviewed previous lipid levels in [facility]. Pharmacotherapy as ordered. Order for lipid panel was given today to be obtained. Pt voiced understanding of lab drawn and continuation of current medication regimen. Assessment & Plan (01/19/2021 11:54 AM CDT): Low-cholesterol diet recommended. Labs ordered. Will start Crestor 10 mg q.h.s.. Estimated Date of Delivery Comme nts Yes 03/12/2025 Resolved Problems Problem Noted Date Diagnosed Date Resolved Date Morbid obesity with BMI of 40.0-44.9, adult 11/10/2023 03/04/2024 Assessment & Plan (03/04/2024 4:27 PM CDT): Wt Readings from Last 3 Encounters: 03/04/24 105.3 kg (232 lb 3.2 oz) 12/15/23 110.7 kg (244 lb) 11/10/23 112.9 kg (249 lb) BMI Readings from Last 3 Encounters: 03/04/24 37.50 kg/m 12/15/23 39.38 kg/m 11/10/23 40.21 kg/m Not at goal of bmi <30 Continue diet and exercise BMI Follow-up includes: nutrition counseling and exercise counseling. C/w topamax 25 mg bid, phentermine 30 mg every day Assessment & Plan (11/10/2023 10:44 AM MATERIAL MAN): Wt Readings from Last 3 Encounters: 11/10/23 112.9 kg (249 lb) 11/01/23 108.9 kg (240 lb) 10/31/23 111.1 kg (245 lb) BMI Readings from Last 3 Encounters: 11/10/23 40.21 kg/m 11/01/23 38.74 kg/m 10/31/23 39.54 kg/m Not at goal of bmi <30 Continue diet and exercise BMI Follow-up includes: nutrition counseling and exercise counseling. Start topamax 25 mg bid, phentermine 30 mg every day History of 2019 novel [place] virus disease (COVID-19) 10/17/2021 08/12/2024 Overview (10/17/2021): Home test positive 10/16/2021. Assessment & Plan (10/17/2021 9:10 AM MATERIAL MAN): Encouraged patient to treat symptoms or gdiu-vuh-czvzeui medications as appropriate. Increase water intake, rest, consider bland diet, advance as tolerated. Acute non-recurrent pansinusitis 10/17/2021 02/11/2022 Assessment & Plan (10/17/2021 9:10 AM MATERIAL MAN): Trial oral steroids to help with sinus pressure and pain. Acute left-sided low back pa in with left-sided sciatica 09/11/2021 02/11/2022 Assessment & Plan (09/11/2021 1:54 PM MATERIAL MAN): X-rays ordered of the lumbar spine. Trial of oral steroids given. Patient left without giving urine sample. Cervicalgia 08/13/2021 08/01/2022 Assessment & Plan (08/13/2021 8:28 AM MATERIAL MAN): Neck pain has improved with Flexeril. Will renew Flexeril for p.r.n. use in case it flares again. Will also refer to physical therapy for stretching exercises and home exercise program Chronic bilateral low back p ain without sciatica 08/13/2021 09/10/2021 Assessment & Plan (08/13/2021 8:29 AM MATERIAL MAN): States she periodically has low back pain ever since she has been . Periodically has flare-ups of low back pain and also wants to go to physical therapy for exercises for low back pain. Referral place Gallstone pancreatitis 12/15/201801/19 Class 2 severe obesity due t o excess calories with serious comorbidity and body mass index (BMI) of 37.0 to 37.9 in adult 04/23/2013 4 Overview (01/19/2021): Assessment & Plan (08/06/2023 11:58 AM MATERIAL MAN): Wt Readings from Last 3 Encounters: 08/06/23 111.4 kg (245 lb 8 oz) 06/19/23 109.8 kg (242 lb) 06/09/23 109.9 kg (242 lb 3.2 oz) BMI Readings from Last 3 Encounters: 08/06/23 39.64 kg/m 06/19/23 39.08 kg/m 06/09/23 39.12 kg/m Worsening - noticeable weight gain Not at goal of bmi <30 Continue diet and exercise BMI Follow-up includes: nutrition counseling and exercise counseling. Start wellbutrin 150 mg bid And phetnermine 30 mg every day Will do phentermine for 3-4 months Worsening at this time Discussed different treatment options Assessment & Plan (06/19/2023 11:58 AM CDT): Wt Readings from Last 3 Encounters: 06/19/23 109.8 kg (242 lb) 06/09/23 109.9 kg (242 lb 3.2 oz) 04/28/23 106.3 kg (234 lb 4.8 oz) BMI Readings from Last 3 Encounters: 06/19/23 39.08 kg/m 06/09/23 39.12 kg/m 04/28/23 37.84 kg/m Not at goal of bmi <30 Continue diet and exercise BMI Follow-up includes: nutrition counseling and exercise counseling. Worsening at this time Discussed different treatment options Assessment & Plan (04/28/2023 11:38 AM CDT): Wt Readings from Last 3 Encounters: 04/28/23 106.3 kg (234 lb 4.8 oz) 03/19/23 103.1 kg (227 lb 6.4 oz) 01/17/23 105.6 kg (232 lb 12.8 oz) BMI Readings from Last 3 Encounters: 04/28/23 37.84 kg/m 03/19/23 36.72 kg/m 01/17/23 37.57 kg/m Not at goal of bmi <30 Continue diet and exercise BMI Follow-up includes: nutrition counseling and exercise counseling. Assessment & Plan (01/15/2023 3:39 PM CDT): Wt Readings from Last 3 Encounters: 01/15/23 104.8 kg (231 lb) 12/17/22 104.8 kg (231 lb) 11/18/22 104.9 kg (231 lb 3.2 oz) BMI Readings from Last 3 Encounters: 01/15/23 37.30 kg/m 12/17/22 37.28 kg/m 11/18/22 37.32 kg/m Not at goal of bmi <30 Continue diet and exercise BMI Follow-up includes: nutrition counseling and exercise counseling. Assessment & Plan (12/11/2022 11:07 AM CDT): Wt Readings from Last 3 Encounters: 11/18/22 104.9 kg (231 lb 3.2 oz) 10/04/22 101.6 kg (224 lb) 08/01/22 101.2 kg (223 lb) BMI Readings from Last 3 Encounters: 11/18/22 37.32 kg/m 10/04/22 36.15 kg/m 08/01/22 36.01 kg/m Not at goal of bmi <30 Continue diet and exercise BMI Follow-up includes: nutrition counseling and exercise counseling. Assessment & Plan (06/14/2022 7:23 PM CDT): Weight reduction, daily exercise and dietary modifications recommended., as obesity can complicate their hypercholesterolemia Assessment & Plan (02/11/2022 10:49 AM CDT): Weight reduction, daily exercise and dietary modifications recommended. Assessment & Plan (10/17/2021 9:11 AM MATERIAL MAN): Weight reduction, daily exercise and dietary modifications recommended, when able. Assessment & Plan (09/11/2021 1:54 PM MATERIAL MAN): Weight reduction, daily exercise and dietary modifications recommended. Assessment & Plan (01/19/2021 11:54 AM CDT): Weight reduction, daily exercise and dietary modifications recommended. Acute cystitis without hematuria 01/19/2021 Immunizations Immunization Administration Dates Next Due Influenza, Quadrivalent, Spl it, Preservative Free, Intramuscular 06/14/2022,06/14/2016 Influenza, Split 06/29/2018 Influenza, Trivalent, IM (MDV) 06/29/2019 Influenza, Unspecified 06/15/2024,2022,06/19/2023(Defer red: Patient ill today),08/10/2022(Deferred: Patient Refused),08/06/2022,08/06/2022(Deferre d: Patient Refused),06/26/2021,06/29/2020(Deferre d: Patient Refused) Pfizer SARS-CoV-2 Monovalent Vaccination (12+ Yrs) PURPLE 10/04/2021,01/22/2021,01/01/2021 Tdap 08/24/2023,05/20/2016 Social History Tobacco Use Types Packs/Day Years Used Date Smoking Tobacco: Never Smokeless Tobacco: Never Tobacco Cessation:Counseling Given: Not Answered Alcohol Use Standard Drinks/Week Comments Yes 1 (1 standard drink = 0.6 oz pur e alcohol) socially AUDIT-C Answer Date Recorded Q1: How often do you have a drink containing alc ohol? 2-3 times a week 12/15/2023 Q2: How many drinks containi ng alcohol do you have on a typical day when you are drinking? 1 or 2 12/15/2023 Q3: How often do you have si x or more drinks on one occasion? Never 12/15/2023 PHQ-2 Answer Date Recorded PHQ-2 Total Score (If total score is 3 or more points, staff should administer the PHQ-9) 0 08/12/2024 Personal Safety Answer Date Recorded Have you ever been in or are you currently in a harmful physical or emotional relationship or is someone making you feel afraid or unsafe? Denies 11/07/2024 Estimated Date of Delivery Comme nts Yes 03/12/2025 Sex and Gender Information Value Date Recorded Sex Assigned at Not on file Legal Sex Female 11:56 PM MATERIAL MAN Gender Identity Female 05/20/2021 3:10 PM CDT Sexual Orientation Straight 05/20/2021 3: 10 PM CDT Last Filed Vital Signs Vital Sign Reading Time Taken Comments Blood Pressure 113/63 11/07/2024 9:51 AM MATERIAL MAN Pulse 105 11/07/2024 9:51 AM MATERIAL MAN Temperature 36.4 C (97.5 F) 11/07/2024 9:49 AM MATERIAL MAN Respiratory Rate 17 11/07/2024 9:51 AM MATERIAL MAN Oxygen Saturation 100% 11/07/2024 9:51 AM MATERIAL MAN Inhaled Oxygen Concentration - - Weight 113.4 kg (250 lb) 11/07/2024 9:51 AM MATERIAL MAN Height 167.6 cm (5' 5.98 ) 08/12/2024 10:[address] Body Mass Index 40.37 08/12/2024 10:08 AM MATERIAL MAN Plan of Treatment Not on file Procedures Procedure Name Priority Date/Time Associated Diagnosis Comments STREPTOCOCCUS GROUP A PCR STAT 11/07/2024 11:36 AM MATERIAL MAN INFLUENZA A/B, RSV, AND COVID-19 PCR STAT 11/07/2024 11:36 AM MATERIAL MAN HEPATITIS C ANTIBODY Routine 01/19/2021 11:50 AM CDT Encounter for hepatitis C screening test for low risk patient HM PAP SMEAR WITH HPV Routine 10/30/2017 from Last 3 Months or Most Recently Relevant to Health Maintenance Results * (ABNORMAL) Influenza A/B, RSV, and COVID-19 PCR Nasopharyngeal (11/07/2024 11:36 AM MATERIAL MAN) COVID-19 RNA Negative Negative Influenza A RNA Positive(A) Negative [facility] ([place]) Influenza B RNA Negative Negative [facility] ([place]) RSV RNA Negative Negative [facility] ([place]) Comment: Interpretive data: Testing performed by [facility]. This test is performed using the [employer] Xpert Xpress CoV-2/Flu/RSV plus assay. This is a multiplex, real- time reverse transcriptase PCR assay intended for the qualitative detection of nucleic acid from SARS-CoV-2, influenza A, influenza B, and respiratory syncytial virus. This assay has been cleared by the [place] Food and Drug administration. The performance characteristics have been verified by the [facility]. Results must be considered in the clinical context, and a negative result does not rule out infection. Interpretive Data last revised 2023 Nasopharyngeal 11/07/2024 11 :36 AM MATERIAL MAN 11/07/2024 11:44 AM MATERIAL MAN Narrative [facility] - 11/07/2024 12:24 PM MATERIAL MAN Is the Patient experiencing symptoms consistent with COVID?->Unknown Moses Pope NP LAB MICROBIOLOGY - GENERAL ORDERABLES Final Result Performing Organization Address [facility] de Phone Number [facility] ([place]) [address] [facility] [employer] [place] [address] * (ABNORMAL) Streptococcus Group A PCR Throat (11/07/2024 11:36 AM MATERIAL MAN) Strep A DNA Detected( A) Not Detected Comment: This test is performed using the [employer] Xpert Group A Streptococcal Assay. This is a qualitative, real-time PCR assay that detects Group A Strep using throat specimens from patients suspected of having streptococcal pharyngitis. This assay does not detect other beta-hemolytic streptococci including Group C or Group G. Group C and G have been associated with pharyngitis and, occasionally, acute nephritis but do not cause rheumatic fever. If suspected, order Throat Culture, Routine. This assay has been cleared by the [place] Food and Drug Administration, and its performance characteristics have been verified by the performing laboratory. Throat 11/07/2024 11:3 6 AM MATERIAL MAN 11/07/2024 11:44 AM MATERIAL MAN Moses Pope NP LAB MICROBIOLOGY - GENERAL ORDERABLES Final Result Performing Organization Address [facility] Co de Phone Number [facility] ([place] 1 [facility] [place] [address] * Hepatitis C antibody (01/19/2021 11:50 AM CDT) Hep C Ab Nonreactive Nonreactive [facility] ([place]) Comment: Interpretive Data Nonreactive: Antibodies to HCV not detected. Does NOT exclude the possibility of recent exposure to HCV. Equivocal: Equivocal for HCV antibodies. Supplemental molecular testing will be automatically performed to determine infection status in accordance with current CDC screening recommendations. Reactive: Positive for HCV antibodies. This may represent current or past HCV infection. Supplemental molecular testing will be automatically performed to determine current infection status in accordance with current CDC screening recommendations. Interpretive data was last revised on 2019. Testing performed by: [facility], [address] [place] [address]., [id number] Blood specimen (specimen) 01/19/2021 11:50 AM CDT 01/20/2021 12:10 PM CDT Rachel Lorenz DO LAB MICROBIOLOGY - GENERAL ORDERABLES Final Result [facility] ([place]) 1 [facility] Department [place] [address] * PAP SMEAR WITH HPV (10/30/2017) Historical Provider HEALTH MAINTENANCE Final Result from Last 3 Months or Most Recently Relevant to Health Maintenance Insurance [employer] [place] [employer] [facility] HMO/PPO Address: [address] [address] [place] [address] Advance Directives For more information, please contact: [phone] * Full Code (Latest Code Status on File) Date Activated Date Inactivated Comments 12/15/2018 3:44 AM 12/18/2018 8:20 PM Care Teams Chopper Feeder Relationship Specialty Start Date End Date J Carlos Araujo MD [address] [place] [address] [place] [address] PCP - General Family Medicine 08/06/23 Collin Taylor MD Consulting Physician Hematology and Oncology 09/26/21
--- OUTSIDE RECORDS SUMMARY | 2024-12-12 15:47 | XMS_ITS | Clinical Summary ---
Author Organization [facility] Address [address] [place] [address] Care Team Providers Care Sample Tailor Name Role Phone Rachel Lorenz DO Primary Care Provider [phone] Source Comments [facility],non-owned Affiliates and Associated Physician Practices is amultiple site organization consisting of ambulatory clinics and hospital sitesin [place], [place], [place] and [place]. This disclosure is being madepursuant to the Care Everywhere program and may not contain all information available regarding this patient. Last updated 18.[facility] [employer] Social History Tobacco Use Types Packs/Day Years Used Date Smoking Tobacco: Never Assessed Sex and Gender Information Value Date Recorded Sex Assigned at Not on file Gender Identity Not on file Sexual Orientation Not on file Plan of Treatment Health Maintenance Due Date Last Done Comments PAP SMEAR 1986 HIV SCREENING 2001 HEPATITIS C SCREENING 08/21/2004 DTAP/TDAP/TD VACCINES (1 - Tdap) 2005 HEPATITIS B VACCINE (1 of 3 - 19+ 3-dose series) 2005 COVID-19 VACCINE (4 - 2023- season) 2024 10/04/2021, 01/22/2021, 01/01/2021 INFLUENZA VACCINE (#1) 2024 , 06/26/2021, 06/29/2019, Additional history exists DEPRESSION SCREENING 09/29/2024 ZOSTER VACCINE (1 of 2) 2036 HIB VACCINE Aged Out No longer eligi ble based on patient's age to complete this topic HPV VACCINE Aged Out No longer eligi ble based on patient's age to complete this topic MENINGOCOCCAL (Group B) VACCINE SHARED DECISION-MAKING Aged Out No longer eligible based on patient's age to complete this topic MENINGOCOCCAL GROUPS A/C/Y/W VACCINE Aged Out No longer eligible based on patient's age to complete this topic PNEUMOCOCCAL VACCINE Aged Out No long er eligible based on patient's age to complete this topic Care Teams Sample Tailor Relationship Specialty Start Date End Date Rachel Lorenz DO [address] [place] [address] Dr [facility] [place] [address] PCP - General Family Medicine 01/13/23
--- OUTSIDE RECORDS SUMMARY | 2024-12-12 15:47 | XMS_ITS | Clinical Summary ---
Author Organization [address] Address [address] [place] [id number] Care Team Providers Care Curtain Cutter Hand Name Role Phone Collin Taylor MD Unavailable [phone] J Carlos Araujo MD Primary Care Provider [phone] Allergies No known active allergies Medications enoxaparin [...] 11/10/2023 Assessment & Plan (08/12/2024 10:23 AM MATERIALS SCIENTIST): Wt Readings from Last 3 Encounters: 08/12/24 [...] bid Assessment & Plan (11/10/2023 10:43 AM MATERIALS SCIENTIST): Wt Readings from Last 3 Encounters: 11/10/23 112.9 kg (249 lb) 11/01/23 108.9 kg (240 lb) 10/31/23 111.1 kg (245 lb) BMI Readings from Last 3 Encounters: 11/10/23 40.21 kg/m 02/03/24 38.74 kg/m 10/31/23 39.54 kg/m Not at [...] 08/13/2021 Assessment & Plan (08/12/2024 10:24 AM MATERIALS SCIENTIST): Discussed lifestyle modifications, diet and exercise. Routine blood work ordered/reviewed today. Yearly vision and dental examinations. Assessment & Plan (08/06/2023 11:58 AM MATERIALS SCIENTIST): Discussed lifestyle modifications, diet and exercise. Routine blood work ordered/reviewed today. Yearly vision and dental examinations. Assessment & Plan (08/13/2021 8:27 AM MATERIALS SCIENTIST): -Recommended: Healthy diet. Avoiding junk food/fast food. [...] own. Assessment & Plan (08/12/2024 10:23 AM MATERIALS SCIENTIST): Stable at thsi time Stopped both lexapro and wellbutrin Assessment & Plan (03/04/2024 4:30 PM CDT): Stable at thsi time Continue lexapro 10 gm every day, wellbutrin 150 mg bid Assessment & Plan (12/15/2023 12:32 PM CDT): C/w lexapro 10 mg every day, continue wellbutrin 150 mg bid Stable otherwise Assessment & Plan (11/10/2023 10:42 AM MATERIALS SCIENTIST): Stable with lexapro 10 mg every day, continue wellbutrin 150 mg bid Assessment & Plan (08/06/2023 11:43 AM MATERIALS SCIENTIST): Not at goal Had no improvement with [...] 2012 after being on OCPs 2nd PE May 2020 after being on Depo-Provera for 19 months Assessment & Plan (08/12/2024 10:29 AM MATERIALS SCIENTIST): Following with ob now as she is [...] hypercholesterolemia Assessment & Plan (08/12/2024 10:24 AM MATERIALS SCIENTIST): Lab Results Component Value Date CHOL 244 [...] meds. Assessment & Plan (08/13/2021 8:27 AM MATERIALS SCIENTIST): Lipid abnormalities are stable, reviewed previous lipid levels in [facility]. Pharmacotherapy as ordered. Order for lipid panel [...] day Assessment & Plan (11/10/2023 10:44 AM MATERIALS SCIENTIST): Wt Readings from Last 3 Encounters: 11/10/23 [...] 10/16/2021. Assessment & Plan (10/17/2021 9:10 AM MATERIALS SCIENTIST): Encouraged patient to treat symptoms or adoc-aqd-adusund medications as appropriate. Increase water intake, rest, consider bland diet, advance as tolerated. Acute non-recurrent pansinusitis 10/17/2021 02/11/2022 Assessment & Plan (10/17/2021 9:10 AM MATERIALS SCIENTIST): Trial oral steroids to help with sinus pressure and pain. Acute left-sided low back pa in with left-sided sciatica 09/11/2021 02/11/2022 Assessment & Plan (09/11/2021 1:54 PM MATERIALS SCIENTIST): X-rays ordered of the lumbar spine. Trial of oral steroids given. Patient left without giving urine sample. Cervicalgia 08/13/2021 08/01/2022 Assessment & Plan (08/13/2021 8:28 AM MATERIALS SCIENTIST): Neck pain has improved with Flexeril. Will renew Flexeril for p.r.n. use in case it flares again. Will also refer to physical therapy for stretching exercises and home exercise program Chronic bilateral low back p ain without sciatica 08/13/2021 09/10/2021 Assessment & Plan (08/13/2021 8:29 AM MATERIALS SCIENTIST): States she periodically has low back pain ever since she has been . Periodically has flare-ups of low back pain and also wants to go to physical therapy for exercises for low back pain. Referral place Gallstone pancreatitis 12/15/201801/19 Class 2 severe obesity due t o excess calories with serious comorbidity and body mass index (BMI) of 37.0 to 37.9 in adult 04/23/2013 Overview (01/19/2021): Assessment & Plan (08/06/2023 11:58 AM MATERIALS SCIENTIST): Wt Readings from Last 3 Encounters: 08/06/23 [...] recommended. Assessment & Plan (10/17/2021 9:11 AM MATERIALS SCIENTIST): Weight reduction, daily exercise and dietary modifications recommended, when able. Assessment & Plan (09/11/2021 1:54 PM MATERIALS SCIENTIST): Weight reduction, daily exercise and dietary modifications recommended. Assessment & Plan (01/19/2021 11:54 AM CDT): Weight reduction, daily exercise and dietary modifications recommended. Acute cystitis without hematuria 01/19/2021 Encounters Date Type Department Care Team Description 11/07/2024 11:04 AM MATERIALS SCIENTIST - 11/07/2024 1:54 PM MATERIALS SCIENTIST Emergency [facility] Emergency Department [address] [place] [address] Influenza A (Primary Dx); Strep pharyngitis; , unspecified gestational age Discharge Disposition: Discharge to home or self care from Last 3 Months Immunizations Immunization Administration Dates Next Due Influenza, Quadrivalent, Spl it, Preservative Free, Intramuscular 06/14/2022,06/14/2016 Influenza, Split 06/29/2018 Influenza, Trivalent, IM (MDV) 06/29/2019 Influenza, Unspecified 06/15/2024,2022,06/19/2023(Defer red: Patient ill today),08/10/2022(Deferred: Patient Refused),08/06/2022,08/06/2022(Deferre d: Patient Refused),06/26/2021,06/29/2020(Deferre d: Patient Refused) Pfizer SARS-CoV-2 Monovalent Vaccination (12+ Yrs) PURPLE 10/04/2021,01/22/2021,01/01/2021 Tdap 08/24/2023,05/20/2016 Surgical History Surgery Date Site/Laterality Comments EXCISION URETHRAL DIVERTICULUM FEMALE CHOLECYSTECTOMY 12/17/2018 Laparoscopic Cholecystectomy SECTION C Sections x 2 LASIK 09/29/2019 - 09/28/2020 Bilateral Medical History Medical History Date Comments Pulmonary embolism (HCC) 2011 pulmona ry embolism Pulmonary embolism (HCC) Urethral diverticulum Urethral d iverticulum - (Added by TW Conv) History of recurrent pneumonia H istory of pneumonia - (Added by TW Conv) Personal history of other en docrine, nutritional and metabolic disease History of hyperlipi demia - (Added by TW Conv) Personal history of diseases of the blood and blood-forming organs and certain disorders involving the immune mechanism History of coagulation defec t - (Added by TW Conv) Depression Clotting disorder 08/2012 Migraines 02/2020 Family History Medical History Relation Name Comments Diabetes Father Eliu Heart disease Father Eliu Alzheimer's disease Maternal Grandfather Christian Arthritis Maternal Grandmother Isa Diabetes Maternal Grandmother Isa Heart attack Maternal Grandmother Isa Hypertension Maternal Grandmother Isa Miscarriages / Stillbirths Maternal Grandmother Isa Stroke Maternal Grandmother Isa Cancer Mother's Sister Genoveva Hypertension Other Family history of hypertension - (Added by TW Conv) Cancer Paternal Grandfather Avinash Heart disease Paternal Grandfather Avinash Cancer Paternal Grandmother Gifty Relation Name Status Comments Father Eliu Alive Maternal Grandfather Christian Maternal Grandmother Isa Alive Mother Alive Mother's Sister Genoveva Other Paternal Grandfather Avinash Paternal Grandmother Gifty Social History Tobacco Use Types Packs/Day Years [...] on file Legal Sex Female 11:56 PM MATERIALS SCIENTIST Gender Identity Female 05/20/2021 3:10 PM CDT Sexual Orientation Straight 05/20/2021 3: 10 PM CDT Obstetrics History Para Term AB IAB SAB Ectopic Multiple Livin g Live Births 3 1 1 1 1 Date Outcome GA Total Labor Labor/2nd/3rd Weight Sex Type Anes PTL Shanta A1 A5 Name Clin 016 Term 39w 1d M CS-LT ranv Epidur al N Livin g Complications:Failure to Pro melba in First Stage Current Last Filed Vital Signs Vital Sign Reading Time Taken Comments Blood Pressure 113/63 11/07/2024 9:51 AM MATERIALS SCIENTIST Pulse 105 11/07/2024 9:51 AM MATERIALS SCIENTIST Temperature 36.4 C (97.5 F) 11/07/2024 9:49 AM MATERIALS SCIENTIST Respiratory Rate 17 11/07/2024 9:51 AM MATERIALS SCIENTIST Oxygen Saturation 100% 11/07/2024 9:51 AM MATERIALS SCIENTIST Inhaled Oxygen Concentration - - Weight 113.4 kg (250 lb) 11/07/2024 9:51 AM MATERIALS SCIENTIST Height 167.6 cm (5' 5.98 ) 08/12/2024 10:[address] Body Mass Index 40.37 08/12/2024 10:08 AM MATERIALS SCIENTIST Plan of Treatment Health Maintenance Due Date Last Done Comments Hepatitis B Screening 2004 Cervical Cancer Screening 10/30/2018 10/30/2017 Covid-19 Vaccine ( season) 2024 10/04/2021, 01/22/2021, 01/01/2021 Depression Screening 08/12/2025 08/12/2024, 03/04/2024, 12/15/2023, Additional history exists Regular Well Visit/Exam 18-64 08/12/2025 08/12/2024, 08/06/2023, 08/13/2021, Additional history exists DTaP/Tdap/Td Vaccine (3 - Td or Tdap) 08/24/2033 08/24/2023, 05/20/2016 Hepatitis C Screening Completed 01/19/2021 Influenza Vaccine Completed 06/15/2024, , 08/06/2022, Additional history exists HPV Vaccines Aged Out No longer eligi ble based on patient's age to complete this topic Pneumococcal vaccine <65 Aged Out No longer eligible based on patient's age to complete this topic Varicella Vaccines Discontinued Procedures Procedure Name Priority Date/Time Associated Diagnosis Comments STREPTOCOCCUS GROUP A PCR STAT 11/07/2024 11:36 AM MATERIALS SCIENTIST INFLUENZA A/B, RSV, AND COVID-19 PCR STAT 11/07/2024 11:36 AM MATERIALS SCIENTIST HEPATITIS C ANTIBODY Routine 01/19/2021 11:50 AM CDT Encounter for hepatitis C screening test for low risk patient HM PAP SMEAR WITH HPV Routine 10/30/2017 from Last 3 Months or Most Recently Relevant to Health Maintenance Results * (ABNORMAL) Influenza A/B, RSV, and COVID-19 PCR Nasopharyngeal (11/07/2024 11:36 AM MATERIALS SCIENTIST) COVID-19 RNA Negative Negative Influenza A RNA Positive(A) Negative [facility] ([place]) Influenza B RNA Negative Negative [facility] ([place]) RSV RNA Negative Negative [facility] ([place]) Comment: Interpretive data: Testing performed by [facility]. This test is performed using the [employer] Xpert Xpress CoV-2/Flu/RSV plus assay. This is a multiplex, real- time reverse transcriptase PCR assay intended for the qualitative detection of nucleic acid from SARS-CoV-2, influenza A, influenza B, and respiratory syncytial virus. This assay has been cleared by the [place] Food and Drug administration. The performance characteristics have been verified by the [facility]. Results must be considered in the clinical context, and a negative result does not rule out infection. Interpretive Data last revised 2023 Nasopharyngeal 11/07/2024 11 :36 AM MATERIALS SCIENTIST 11/07/2024 11:44 AM MATERIALS SCIENTIST Narrative [facility] ([place]) - 11/07/2024 12:24 PM MATERIALS SCIENTIST Is the Patient experiencing symptoms consistent with COVID?->Unknown Moses Pope NP LAB MICROBIOLOGY - GENERAL ORDERABLES Final Result [facility] ([place]) [address] [facility] Department [place] [address] * (ABNORMAL) Streptococcus Group A PCR Throat (11/07/2024 11:36 AM MATERIALS SCIENTIST) Strep A DNA Detected( A) Not Detected Comment: This test is performed using the [employer] Xpert Group A Streptococcal Assay. This is [...] performing laboratory. Throat 11/07/2024 11:3 6 AM MATERIALS SCIENTIST 11/07/2024 11:44 AM MATERIALS SCIENTIST Moses Pope OPAL MINER LAB MICROBIOLOGY - GENERAL ORDERABLES Final Result [facility] ([place]) [address] [facility] [place] [address] * Hepatitis C antibody (01/19/2021 11:50 AM [...] last revised on 2019. Testing performed by: [facility], [address] [place] [address]., [id number] Blood specimen (specimen) 01/19/2021 11:50 AM CDT 01/20/2021 12:10 PM CDT Rachel Lorenz DO LAB MICROBIOLOGY - GENERAL ORDERABLES Final Result Performing Organization Address City/[facility]/ZIP Co de Phone Number [facility] ([place]) [address] [facility] [place] [address] * HM PAP SMEAR WITH HPV (10/30/2017) Historical Provider HEALTH MAINTENANCE Final Result from Last 3 Months or Most Recently Relevant to Health Maintenance Insurance [employer] ACCESS OOS [employer] [facility] PL[facility] Advance Directives For more information, please contact: [phone] * Full Code (Latest Code Status on File) Date Activated Date Inactivated Comments 12/15/2018 3:44 AM 12/18/2018 8:20 PM Care Teams Curtain Cutter Hand Relationship Specialty Start Date End Date J Carlos Araujo MD [address] [place] [address] [address] PCP - General Family Medicine 08/06/23 Collin Taylor MD Consulting Physician Hematology and Oncology 09/26/21
--- OUTSIDE RECORDS SUMMARY | 2024-12-12 15:47 | XMS_ITS | Clinical Summary ---
Author Organization [facility] Address [address] [place] [address] Phone Care Team Providers Care Videogame Designer Name Role Phone Rachel Lorenz Primary Care Provider [phone] Allergies No known active allergies Medications Multiple Vitamin (MULTIVITAMIN PO) Take by mouth daily. Active rivaroxaban (Xarelto) 20 MG TabletIndicati ons:Venous Thromboembolis m,pulmonary embolism Take 1 Tab by mouth daily (with dinner). Take with food. Indications: Venous Thromboembolism, pulmonary embolism 90 Tab 1 0 Active Additional Information Patient not taking.Reported on 11/07/2024 VITAMIN D PO Take 1,000 Units by mouth daily. Active rosuvastatin (CRESTOR) 10 MG Tablet Take 1 Tab by mouth daily. 90 Tab 3 0 Active Additional Information Patient not taking.Reported on 11/07/2024 buPROPion (WELLBUTRIN) 300 MG TABLET SR 24 HR XL tablet Take 1 Tab by mouth every morning. 90 Tab 0 Active Additional Information Patient not taking.Reported on 11/07/2024 methylPREDNISo lone (Medrol) 4 MG Tablet Therapy PackIndication s:Toe pain, left Use as per instructions on package. 21 Tablet 2 Active Additional Information Patient not taking.Reported on 11/07/2024 enoxaparin (LOVENOX) 80 MG/0.8ML Solution Prefilled Syringe DAILY. INJECT 0.8 ML SUBCUTANEOUSLY TWICE A DAY. Active Active Problems Problem Noted Date Diagnosed Date Major depressive disorder, recurrent, moderate 0 03/24/2020 Factor 5 Leiden mutation, heterozygous 9 Mixed hyperlipidemia 04/12/2019 Thrombophilia 03/25/2019 Gallstone pancreatitis 12/15/2018 Calculus of gallbladder with chronic cholecystitis without obstruction 08/31/2018 Adiposity 04/23/2013 Overview (10/06/2017): Overview: Obese History of pulmonary embolism 04/23/2013 Overview (10/06/2017): Overview: Hx pulmonary embolism Obesity (BMI 35.0-39.9 without comorbidity) 03/30 Overview (04/12/2019): Overview: Obese Estimated Date of Delivery Comme nts Yes 03/15/2025 Resolved Problems Problem Noted Date Diagnosed Date Resolved Date Acute non-recurrent frontal sinusitis 12/17/2017 06/30/2020 Chronic saddle pulmonary embolism 07/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 02/19/2017 H/O section 07/01/2016 017 Overview (07/01/2016): 2016 Encounters Date Type Department Care Team Description 11/07/2024 9:10 AM RFID SYSTEMS ARCHITECT Urgent Care Visit [facility] [place] [address] [place] [address] Chelo Huang, ATV MECHANIC, BUCKLE STRAP DRUM OPERATOR Hemoptysis (Primary Dx); Factor 5 Leiden mutation, heterozygous (HCC); Thrombophilia (HCC); Tachycardia; 21 weeks gestation of ; Hx of usp use of blood thinners Discharge Disposition: Discharged to home or Selfcare 11/07/2024 Travel from Last 3 Months Immunizations Immunization Administration Dates Next Due Influenza Vaccine greater than 3 yrs 06/29/2019 PUR FLU 3+ YRS PRES FREE QUAD IM 06/14/2016 Family History Medical History Relation Name Comments Heart Attack Maternal Grandfather Diabetes Maternal Grandmother Heart Attack Maternal Grandmother Stroke Maternal Grandmother Cancer Paternal Grandmother Relation Name Status Comments Father Alive Maternal Grandfather Alive Maternal Grandmother Alive Mother Alive Paternal Grandfather Paternal Grandmother Social History Tobacco Use Types Packs/Day Years Used Date Smoking Tobacco: Never Smokeless Tobacco: Never Tobacco Cessation:Counseling Given: No Alcohol Use Standard Drinks/Week Comments Yes 2 (1 standard drink = 0.6 oz pur e alcohol) 1 beer every other night AUDIT-C Answer Date Recorded Q1: How often do you have a drink containing alc ohol? 2-3 times a week 03/24/2020 Average Number of Drinks Not on file 020 Frequency of Binge Drinking Not on file 02/28 PHQ-2 Answer Date Recorded Total Score - Questions 1-9 13 02/28 Education Answer Date Recorded What is the highest level of school you have completed or the highest degree you have received? Master's degree (e.g., MA, MS, Renea, MEd, ECONOMICS LECTURER, VIDAL) 03/24/2020 Sexually Active Control Partners Comments Yes Injection Male Estimated Date of Delivery Comme nts Yes 03/15/2025 Sex and Gender Information Value Date Recorded Sex Assigned at Not on file Legal Sex Female 8:35 PM CDT Gender Identity Not on file Sexual Orientation Not on file Last Filed Vital Signs Vital Sign Reading Time Taken Comments Blood Pressure 104/72 11/07/2024 9:08 AM RFID SYSTEMS ARCHITECT Pulse 122 11/07/2024 9:08 AM RFID SYSTEMS ARCHITECT Temperature 36.8 C (98.3 F) 11/07/2024 9:08 AM RFID SYSTEMS ARCHITECT Respiratory Rate 18 11/07/2024 9:08 AM RFID SYSTEMS ARCHITECT Oxygen Saturation 98% 11/07/2024 9:08 AM RFID SYSTEMS ARCHITECT Inhaled Oxygen Concentration - - Weight 105.7 kg (233 lb) 11/12/2022 5:39 PM RFID SYSTEMS ARCHITECT Height 167.6 cm (5' 6 ) 06/30/2020 8:32 AM CDT Body Mass Index 37.61 06/30/2020 8:32 AM CDT Plan of Treatment Health Maintenance Due Date Last Done Comments Hepatitis C Virus (HCV) Screening 1986 Hepatitis B Immunization (1 of 3 - 19+ 3-dose series) 2005 HPV/Cotest 2016 Cervical Cancer Screening (CCS) 07/22/2019 Pap Smear 07/22/2019 07/22/2016 SARS-COV-2 Immunization ( season) 2024 10/04/2021, 01/22/2021, 01/01/2021 TdaP Immunization Completed 08/24/2023, 05/20/2016 Influenza Immunization Completed , 07/06/2023, 08/06/2022, Additional history exists Meningococcal Immunization (ACWY) Aged Out No longer eligible based on patient's age to complete this topic Pneumococcal Immunization Combined Aged Out No longer eligible based on patient's age to complete this topic Respiratory Syncytial Virus (RSV) Immunization (Adult) (No Doses Required) Completed Rotavirus Immunization Aged Out No lo nger eligible based on patient's age to complete this topic Goals Goal Patient Goal Type Associated Problems Recent Progress Patient-Stated? Author Behavioral [facility] Behavioral Health On track(2019 9:37 AM CDT) Yes Gay Fitzpatrick LCPC Note: Nita reported she desires to get some coping methods from counseling; to have reduction of depression symptoms. Goal Reviewed with: patient Readiness to change: Thinking about making a change Department associated with goal: [facility] Steps to achieve goal: 1. Nita to attend, at least twice monthly, counseling sessions. 2. Nita to identify, verbalize and process at least three contributing factors/triggers to depression. 3. Nita to identify and verbalize at least three actions/skills to prevent and/or cope with depression. 4. Nita to put into action, at least one time weekly, for one month, an action/skill to prevent and or cope with depression. Behavioral Health Behavioral Health On track(2019 9:37 AM CDT) No Gay Fitzpatrick LCPC Note: Pt to have increased acceptance and awareness regarding behavioral health concerns. Goal Reviewed with: patient Readiness to change: Thinking about making a change Department associated with goal: [facility] Steps to achieve goal: 1. Nita will attend counseling/psychotherapy sessions at least twice monthly, utilizing sessions to express thoughts and feelings. 2. Nita will verbalize understanding of depression , ex: causes/contributing and risk factors, prevalence of conditions in the general population. Procedures Procedure Name Priority Date/Time Associated Diagnosis Comments PATHOLOGY CYTOLOGY MONUMENT STONECUTTER Routine 07/22/2016 from Last 3 Months or Most Recently Relevant to Health Maintenance Results * PATHOLOGY CYTOLOGY MONUMENT STONECUTTER (07/22/2016) Specimen of unknown material (specimen) Oren Durham MD PATHOLOGY/CYTOLOGY ORD ERABLES Final Result from Last 3 Months or Most Recently Relevant to Health Maintenance Insurance [facility] Care Teams Videogame Designer Relationship Specialty Start Date End Date Rachel Lorenz DO [address] [place] [address] PCP - General Family Medicine 04/24/22
--- OUTSIDE RECORDS SUMMARY | 2024-12-12 15:47 | XMS_ITS | Data Portability ---
Author Organization [place] [facility]- Address # [address] [place] [address] Assessment No assessment recorded. Plan of Treatment Reminders Order Date Submit Date Provider Last Modified By Organization Details Last Modified Time Details Appointments None record ed. Lab None record ed. Referral None record ed. Procedures None record ed. Surgeries None record ed. Imaging None record ed. Medication Orders None record ed. Patient TargetsNo targets recorded. Patient InstructionsNo instructions recorded. Reason for Referral None Reported. Problems No Known Problems Medical Equipment None Reported. Allergies No known drug allergies Medications Not known to be on any medication Vitals None Recorded Social History None recorded. Functional Status None recorded. Mental Status None recorded. Family History Nothing Reported. Medical History No medical history recorded. Gynecological HistoryNo gynecological history recorded. Obstetrics History GPAL:G 0 P 0 0 0 0 Immunizations Vaccine Type Date Status Note Provider Nam e and Address Organization Details Recorded Time COVID-19, mRNA, LNP-S, PF, 30 mcg/0.3 mL dose 10/04/2021 completed Johana Kaye [place], [place] - [facility], 10/04/2021 16:59:30 Past Encounters Encounter ID Performer Location Encounter Start Date Encounter Closed Date Diagnosis/Indication Diagnosis SNOMED-CT Code Diagnosis ICD10 Code Diagnosis Note [id number] [facility] [address] [place] [address] 10/04/2021 16:34:18 10/09/2021 12:09:25 Active immunization [id number] Health Concerns Section Related Observation LastModified by Organization Detai ls LastModified Time None Recorded Concern Status LastModified by Organization Details LastModified Time None Recorded Advance Directives Directive None Recorded Payers Encounter Date Sequence Insurance Name Policy Number Policy Price Covered Member ID Price Member ID Guarantor Name 10/04/2021 1 [employer]: (PPO) [id number] Dinora Singh [id number] Dinora Singh OBGyn Episode No OBEpisode recorded.
--- OUTSIDE RECORDS SUMMARY | 2024-12-12 15:47 | XMS_ITS | Clinical Summary ---
Author Organization [employer] [facility] Address [address] [place] [address] Phone Care Team Providers Care Quality Assurance Qa Lab Analyst Name Role Phone Unavailable Primary Care Provider Unavailabl e Allergies No known active allergies Medications enoxaparin (LOVENOX) 40 mg/0.4 mL injection 7 06/15/2018 Active DICLEGIS 10-10 mg Tablet, Delayed Release (E.C.) 5 06/04/2018 Active vit-iron fumarate-fa (ROSANNA ) 28 mg iron- 800 mcg Tablet Take 1 Tablet by mouth daily. Active Active Problems Problem Noted Date Diagnosed Date History of pulmonary embolism 06/21/2018 Encounters Date Type Department Care Team Description 12/04/2024 External Device Data STL ABSTRACTION Provider, Abstract 12/03/2024 External Device Data [facility] ABSTRACTION Provider, Abstract 12/01/2024 External Device Data [facility] ABSTRACTION Provider, Abstract 11/29/2024 1:56 PM PANCAKE PROFESSIONAL - 11/29/2024 11:59 PM PANCAKE PROFESSIONAL Hospital Encounter [facility] [address] [place] [address] Ganesh Liu MD Discharge Disposition: Home or Self Care 11/17/2024 External Device Data [facility] ABSTRACTION Provider, Abstract 11/02/2024 External Device Data [facility] ABSTRACTION Provider, Abstract 11/02/2024 External Device Data [facility] ABSTRACTION Provider, Abstract 11/02/2024 External Device Data ST[facility] ABSTRACTION Provider, Abstract 11/01/2024 2:00 PM PANCAKE PROFESSIONAL - 11/01/2024 11:59 PM PANCAKE PROFESSIONAL Hospital Encounter [facility] [address] [place] [address] Noemy Flores MD Discharge Disposition: Home or Self Care from Last 3 Months Family History Medical History Relation Name Comments Diabetes Maternal Grandmother Cancer Paternal Grandmother Relation Name Status Comments Maternal Grandmother Paternal Grandmother Social History Tobacco Use Types Packs/Day Years Used Date Smoking Tobacco: Never Smokeless Tobacco: Never Alcohol Use Standard Drinks/Week Comments No 0 (1 standard drink = 0.6 oz pur e alcohol) Comments No Sex and Gender Information Value Date Recorded Sex Assigned at Not on file Legal Sex Female 8:20 AM CDT Gender Identity Not on file Sexual Orientation Not on file 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 Not on file Not on file Last Filed Vital Signs Vital Sign Reading Time Taken Comments Blood Pressure 122/76 06/17/2018 1:26 PM CDT Pulse - - Temperature - - Respiratory Rate - - Oxygen Saturation - - Inhaled Oxygen Concentration - - Weight 113.4 kg (250 lb) 06/17/2018 1:26 PM CDT Height 167.6 cm (5' 6 ) 06/17/2018 1:26 PM CDT Body Mass Index 40.35 06/17/2018 1:26 PM CDT Plan of Treatment Upcoming Encounters Date Type Department Care Team (Late st Contact Info) Description 12/13/2024 1:00 PM CDT Appointment [facility] [address] [place] [address] Kary Roberto MD [id number] [place] [id number] Health Maintenance Due Date Last Done Comments Pre-Diabetes and Diabetes Screening 1985 HEPATITIS B VACCINES (1 of 3 - 19+ 3-dose series) 2005 CERVICAL CANCER SCREENING 07/22/2019 07/22/2016 INFLUENZA VACCINE (#1) 2024 2, 06/29/2019, 06/14/2016 COVID-19 Vaccine ( season) 2024 10/04/2021, 01/22/2021, 01/01/2021 DTAP/TDAP/TD VACCINES (3 - Td or Tdap) 08/24/2033 08/24/2023, 05/20/2016 HPV VACCINES Aged Out No longer eligi ble based on patient's age to complete this topic Procedures Procedure Name Priority Date/Time Associated Diagnosis Comments US OB FOLLOW UP PER FETUS Routine 11/29/2024 2:32 PM PANCAKE PROFESSIONAL Advanced maternal age in multigravida, second trimester US OB DETAIL SINGLE GEST Routine 11/01/2024 3:15 PM PANCAKE PROFESSIONAL Advanced maternal age in multigravida, second trimester from Last 3 Months Results * US OB FOLLOW UP PER FETUS (11/29/2024 2:32 PM PANCAKE PROFESSIONAL) Anatomical Region Laterality Modality Pelvis Ultrasound 11/29/2024 1:58 PM PANCAKE PROFESSIONAL Narrative 11/30/2024 8:10 AM PANCAKE PROFESSIONAL STL FOLLOW UP ----- Pat. Name: ESTRELLA SINGH Study Date: 11/29/2024 1:58pm Pat. NO: [id number] Referring MD: NOEMY FLORES MD Site: [place] [employer] Helper: Chuyita Benedict RDMS : 1985 Age: 39 ----- INDICATION ----- Advanced Maternal Age (AMA), Multigravida Screening Follow-Up CODING ----- Diagnoses Z3A.24: Weeks of gestation O09.522: Supervision of elderly multigravida Z36.2: Encounter for other screening follow-up Procedures 88515: Ultrasound, uterus, real time with image documentation, follow up, transabdominal approach per fetus HISTORY ----- OB History 2. Para 1 METHOD ----- Transabdominal ultrasound examination ----- Infante . Number of fetuses: 1 DATING ----- GA by prior assessment 24 w + 6 d UVALDO by prior assessment: 03/15/2025 Ultrasound examination on: 11/29/2024 GA by U/S based upon: AC, BPD, EFW, Femur, HC GA by U/S 25 w + 1 d UVALDO by U/S: 03/13/2025 Method of dating: Restore dating from previous exam Assigned: based on stated UVALDO, selected on 11/01/2024 Assigned GA 24 w + 6 d Assigned UVALDO: 03/15/2025 BIOMETRY ----- BPD 62.9 mm 25w 3d 65% Hadlock OFD 84.2 mm 27w 2d 98% Morena HC 236.1 mm 25w 5d 59% Hadlock AC 214.3 mm 26w 0d 74% Hadlock Femur 42.2 mm 23w 5d 10% Hadlock HC / AC 1.10 32% Nicolaides Weight Calculation: EFW 770 g 24w 6d 51% Hadlock EFW (lb,oz) 1 lb 11 oz EFW by Hadlock ([id number]) Head / Face / Neck Biometry: Catheter Builder 3.3 mm Extremities / Bony Struc Biometry: FL / BPD 0.67 FL / HC 0.18 FL / AC 0.20 GENERAL EVALUATION ----- Cardiac activity present. FHR 148 bpm. movements: present. Presentation: cephalic Placenta: Placental site: posterior Umbilical cord: Cord vessels: 3 vessel cord. Insertion site: placental insertion: normal Amniotic fluid: Amount of AF: normal amount. MVP 6.7 cm ANATOMY ----- The following structures appear normal: Head / Neck Cranium. Lateral ventricles. Choroid plexus. Midline falx. Cavum septi pellucidi. Heart / Thorax 4-chamber view. LVOT view. Diaphragm. Abdomen Stomach. Kidneys. Bladder. Extremities / Feet. Skeleton The following structures could not be adequately visualized: Heart / Thorax Ductal arch view. GROWTH OVERVIEW ----- Exam date GA BPD (mm) HC (mm) AC (mm) FL (mm) HL (mm) EFW (g) 11/01/2024 20w 6d 49.6 56% 182.3 30% 165.4 67% 32.2 16% 32.4 47% 382 44% 11/29/2024 24w 6d 62.9 65% 236.1 59% 214.3 74% 42.2 10% 770 51% COMMENT ----- Patient's name and date of were verified by the career technical supervisor prior to the exam IMPRESSION ----- Infante @ 24w 6d referred to complete the anatomy. - The biometry is consistent with dates with the EFW at the 51% percentile. - Amniotic fluid indices are within normal limits. - Limited anatomy is unremarkable except for the ductal arch, which remains suboptimal due to poor lie. A targeted ultrasound is recommended in 2 weeks to re-evaluate the ductal arch. A follow up to check growth is recommended at 32 weeks. Thank you for allowing us to participate in the care of this patient. ADDENDUM ----- RETRIGGER Procedure Note Kary Roberto MD - 11/30/2024 STL FOLLOW UP ----- Pat. Name:Kali SINGH Date:11/29/2024 1:58pm Pat. NO: [id number] MD:NOEMY FLORES [facility] Benedict RDMS :1985Age:39 ----- INDICATION ----- Advanced Maternal Age (AMA), Multigravida Screening Follow-Up CODING ----- Diagnoses Z3A.24: Weeks of gestation O09.522: Supervision of elderly multigravida Z36.2: Encounter for other screeningfollow-up Procedures 56785: Ultrasound, uterus, real time withimage documentation, follow up, transabdominal approach per fetus HISTORY ----- OB History 2. Para 1 METHOD ----- Transabdominal ultrasound examination ----- Infante . Number of fetuses: 1 DATING ----- GA by prior [id number] w + 6 d UVALDO by prior assessment:03/15/2025 Ultrasound examination on:11/29/2024 GA by U/S based upon:AC, BPD, EFW, Femur, HC GA by U/S25 w + 1 d UVALDO by U/S:03/13/2025 Method of dating:Restore dating from previous exam Assigned:based on stated UVALOD, selected on 11/01/2024 Assigned GA24 w + 6 d Assigned UVALDO:03/15/2025 BIOMETRY ----- BPD 62.9 mm 25w 3d 65%Hadlock OFD 84.2 mm 27w 2d 98%Morena HC 236.1 mm 25w 5d 59%Hadlock AC 214.3 mm 26w 0d 74%Hadlock Femur 42.2 mm 23w 5d 10%Hadlock HC / AC 1.10 32%Nicolaides Weight Calculation: EFW 770 g 24w 6d 51%Hadlock EFW (lb,oz) 1 lb 11 oz EFW by Hadlock ([id number]) Head / Face / Neck Biometry: Catheter Builder 3.3mm Extremities / Bony Struc Biometry: FL / BPD 0.67 FL / HC 0.18 FL / AC 0.20 GENERAL EVALUATION ----- Cardiac activity present. FHR 148 bpm. movements: present.Presentation: cephalic Placenta: Placental site: posterior Umbilical cord: Cord vessels: 3 vessel cord. Insertion site: placentalinsertion: normal Amniotic fluid: Amount of AF: normal amount. MVP 6.7 cm ANATOMY ----- The following structures appear normal: Head / Neck Cranium. Lateral ventricles. Choroid plexus.Midline falx. Cavum septi pellucidi. Heart / Thorax 4-chamber view. LVOT view. Diaphragm. Abdomen Stomach. Kidneys. Bladder. Extremities / Feet. Skeleton The following structures could not be adequately visualized: Heart / Thorax Ductal arch view. GROWTH OVERVIEW ----- Exam date GA BPD (mm) HC (mm) AC (mm) FL(mm) HL (mm) EFW (g) 11/01/2024 20w 6d 49.6 56% 182.3 30% 165.4 67%32.2 16% 32.4 47% 382 44% 11/29/2024 24w 6d 62.9 65% 236.1 59% 214.3 74%42.2 10% 770 51% COMMENT ----- Patient's name and date of were verified by the career technical supervisor prior tothe exam IMPRESSION ----- Infante @ 24w 6d referred to complete the anatomy. - The biometry is consistent with dates with the EFW at the 51%percentile. - Amniotic fluid indices are within normal limits. - Limited anatomy is unremarkable except for the ductal arch, whichremains suboptimal due to poor lie. A targeted ultrasound is recommended in 2 weeks to re-evaluate the ductalarch. A follow up to check growth is recommended at 32 weeks. Thank you for allowing us to participate in the care of this patient. ADDENDUM ----- RETRIGGER us Ganesh Liu MD US ORDERABLES Edited Res ult - Final * US OB DETAIL SINGLE GEST (11/01/2024 3:15 PM PANCAKE PROFESSIONAL) Anatomical Region Laterality Modality Pelvis Ultrasound 11/01/2024 2:21 PM PANCAKE PROFESSIONAL Narrative 11/01/2024 3:20 PM PANCAKE PROFESSIONAL STL COMP ----- Pat. Name: ESTRELLA SINGH Study Date: 11/01/2024 2:21pm Pat. NO: [id number] Referring MD: NOEMY FLORES MD Site: [place] [employer] Helper: Chuyita Benedict RDMS : 1985 Age: 39 ----- INDICATION ----- Advanced Maternal Age (AMA), Multigravida Anatomy Survey CODING ----- Diagnoses Z3A.20: Weeks of gestation Z36.3: Encounter for screening for malformations O09.522: Supervision of elderly multigravida Procedures 95639: Ultrasound, uterus, real time with image documentation, and maternal evaluation plus detailed anatomic examination, transabdominal approach HISTORY ----- OB History 2. Para 1 METHOD ----- Transabdominal ultrasound examination ----- Infante . Number of fetuses: 1 DATING ----- Method of dating: based on stated UVALDO GA by prior assessment 20 w + 6 d UVALDO by prior assessment: 03/15/2025 Ultrasound examination on: 11/01/2024 GA by U/S based upon: AC, BPD, EFW, Femur, HC GA by U/S 20 w + 5 d UVALDO by U/S: 03/16/2025 Assigned: based on stated UVALDO, selected on 11/01/2024 Assigned GA 20 w + 6 d Assigned UVALDO: 03/15/2025 BIOMETRY ----- BPD 49.6 mm 21w 0d 56% Hadlock OFD 63.0 mm 21w 4d 73% Morena HC 182.3 mm 20w 4d 30% Hadlock Cerebellum tr 21.9 mm 21w 3d 55% Perez Nuchal fold 3.1 mm AC 165.4 mm 21w 4d 67% Hadlock Femur 32.2 mm 20w 0d 16% Hadlock Humerus 32.4 mm 20w 6d 47% Morena HC / AC 1.10 14% Nicolaides Weight Calculation: EFW 382 g 20w 5d 44% Hadlock EFW (lb,oz) 0 lb 13 oz EFW by Hadlock ([id number]) Head / Face / Neck Biometry: Catheter Builder 4.4 mm CM 7.5 mm 96% Nicolaides Outer IOD 31.5 mm 20w 2d 15% Morena Extremities / Bony Struc Biometry: FL / BPD 0.65 4% Hadlock FL / HC 0.18 13% Hadlock FL / AC 0.19 2% Hadlock GENERAL EVALUATION ----- Cardiac activity present. FHR 140 bpm. movements: present. Presentation: Variable Placenta: Placental site: posterior Umbilical cord: Cord vessels: 3 vessel cord. Insertion site: placental insertion: normal Amniotic fluid: Amount of AF: normal amount. MVP 5.5 cm ANATOMY ----- The following structures appear normal: Head / Neck Cranium. Lateral ventricles. Choroid plexus. Midline falx. Cavum septi pellucidi. Cerebellum. Cisterna magna. Nuchal fold. Face Lips. Profile. Nose. Palate. Orbits. Heart / Thorax RVOT view. 3-vessel view. 4-tgjhur-ycnusik view. Situs. Aortic arch view. Superior vena cava. Inferior vena cava. High short axis view. Cardiac rhythm. Diaphragm. Abdomen Abdominal wall. Stomach. Kidneys. Bladder. Spine Cervical spine. Thoracic spine. Lumbar spine. Sacral spine. Extremities / Arms. Right hand. Left hand. Legs. Skeleton The following structures could not be adequately visualized: Heart / Thorax 4-chamber view. LVOT view. Ductal arch view. Extremities / Right foot. Left foot. Skeleton MATERNAL STRUCTURES ----- Cervix Visualized Approach - Transabdominal: Cervical length 44.0 mm Right Ovary Not visualized Left Ovary Not visualized GROWTH OVERVIEW ----- Exam date GA BPD (mm) HC (mm) AC (mm) FL (mm) HL (mm) EFW (g) 11/01/2024 20w 6d 49.6 56% 182.3 30% 165.4 67% 32.2 16% 32.4 47% 382 44% COMMENT ----- Patient's name and date of were verified by the career technical supervisor before the exam IMPRESSION ----- 1. Single living fetus with a gestational age of 20w 6d based on the reported clinical dates. 2. Current growth parameters are consistent with the stated EDC. The size is normal at the 44% (382 g). 3. Detailed evaluation was performed and no structural abnormalities are noted. No gross structural abnormalities note. 4CH, LVOT, DA, feet not well visualized. No overt markers for aneuploidy identified. 4. The amniotic fluid is normal for gestational age (5.5 cm). 5. Placenta is posterior. No previa or low lying placenta noted. Recommendations: - Follow up in 4 weeks Thank you for allowing us to participate in the care of this patient. Procedure Note Ganesh Liu MD - 11/01/2024 STL COMP ----- Pat. Name:Kali SINGH Date:11/01/2024 2:21pm Pat. NO: [id number] MD:NOEMY FLORES [facility]uy[facility] Benedict RDMS :1985Age:39 ----- INDICATION ----- Advanced Maternal Age (AMA), Multigravida Anatomy Survey CODING ----- Diagnoses Z3A.20: Weeks of gestation Z36.3: Encounter for screening formalformations O09.522: Supervision of elderly multigravida Procedures 59212: Ultrasound, uterus, real time withimage documentation, and maternal evaluation plus detailed anatomic examination,transabdominal approach HISTORY ----- OB History 2. Para 1 METHOD ----- Transabdominal ultrasound examination ----- Infante . Number of fetuses: 1 DATING ----- Method of dating:based on stated UVALDO GA by prior [id number] w + 6 d UVALDO by prior assessment:03/15/2025 Ultrasound examination on:11/01/2024 GA by U/S based upon:AC, BPD, EFW, Femur, HC GA by U/S20 w + 5 d UVALDO by U/S:03/16/2025 Assigned:based on stated UVALDO, selected on 11/01/2024 Assigned GA20 w + 6 d Assigned UVALDO:03/15/2025 BIOMETRY ----- BPD 49.6 mm 21w 0d56% Hadlock OFD 63.0 mm 21w 4d73% Morena HC 182.3 mm 20w 4d30% Hadlock Cerebellum tr 21.9 mm 21w 3d55% Perez Nuchal fold 3.1 mm AC 165.4 mm 21w 4d67% Hadlock Femur 32.2 mm 20w 0d16% Hadlock Humerus 32.4 mm 20w 6d47% Morena HC / AC 1.10 14%Nicolaides Weight Calculation: EFW 382 g 20w 5d 44%Hadlock EFW (lb,oz) 0 lb 13 oz EFW by Hadlock ([id number]) Head / Face / Neck Biometry: Catheter Builder 4.4 mm CM 7.5 mm 96%Nicolaides Outer IOD 31.5 mm 20w 2d 15%Morena Extremities / Bony Struc Biometry: FL / BPD 0.65 4%Hadlock FL / HC 0.18 13%Hadlock FL / AC 0.19 2%Hadlock GENERAL EVALUATION ----- Cardiac activity present. FHR 140 bpm. movements: present.Presentation: Variable Placenta: Placental site: posterior Umbilical cord: Cord vessels: 3 vessel cord. Insertion site: placentalinsertion: normal Amniotic fluid: Amount of AF: normal amount. MVP 5.5 cm ANATOMY ----- The following structures appear normal: Head / Neck Cranium. Lateral ventricles. Choroid plexus.Midline falx. Cavum septi pellucidi. Cerebellum. Cisterna magna. Nuchal fold. Face Lips. Profile. Nose. Palate. Orbits. Heart / Thorax RVOT view. 3-vessel view. 9-uofijj-hgzisrs view.Situs. Aortic arch view. Superior vena cava. Inferior vena cava. High short axis view. Cardiac rhythm. Diaphragm. Abdomen Abdominal wall. Stomach. Kidneys. Bladder. Spine Cervical spine. Thoracic spine. Lumbar spine.Sacral spine. Extremities / Arms. Right hand. Left hand. Legs. Skeleton The following structures could not be adequately visualized: Heart / Thorax 4-chamber view. LVOT view. Ductal arch view. Extremities / Right foot. Left foot. Skeleton MATERNAL STRUCTURES ----- Cervix Visualized Approach - Transabdominal: Cervical length 44.0mm Right Ovary Not visualized Left Ovary Not visualized GROWTH OVERVIEW ----- Exam date GA BPD (mm) HC (mm) AC (mm) FL(mm) HL (mm) EFW (g) 11/01/2024 20w 6d 49.6 56% 182.3 30% 165.4 67%32.2 16% 32.4 47% 382 44% COMMENT ----- Patient's name and date of were verified by the career technical supervisor beforethe exam IMPRESSION ----- 1. Single living fetus with a gestational age of 20w 6d based on thereported clinical dates. 2. Current growth parameters are consistent with the stated EDC. The fetalsize is normal at the 44% (382 g). 3. Detailed evaluation was performed and no structural abnormalitiesare noted. No gross structural abnormalities note. 4CH, LVOT, DA, feet not well visualized. No overt markers for aneuploidyidentified. 4. The amniotic fluid is normal for gestational age (5.5 cm). 5. Placenta is posterior. No previa or low lying placenta noted. Recommendations: - Follow up in 4 weeks Thank you for allowing us to participate in the care of this patient. us Noemy Flores MD ORDERABLES Edited Re sult - Final from Last 3 Months Insurance [facility] [id number]
--- OUTSIDE RECORDS SUMMARY | 2024-12-12 15:47 | XMS_ITS | Patient Health Summary ---
Author Organization [facility] Address [address] [place] [address] Care Team Providers Care Sewing Machine Assembler Name Role Phone Rachel Lorenz DO Primary Care Provider Note from [facility],non-owned Affiliates and Associated Physician Practices is amultiple site organization consisting of ambulatory clinics and hospital sitesin [place], [place], [place] and [place]. This disclosure is being madepursuant to the Care Everywhere program and may not contain all information available regarding this patient. Last updated 18.[facility] Social History Tobacco Use Types Packs/Day Years Used Date Smoking Tobacco: Never Assessed Sex and Gender Information Value Date Recorded Sex Assigned at Not on file Gender Identity Not on file Sexual Orientation Not on file Procedures * TILT TABLE TEST WITHOUT AUTONOMIC STUDIES(Performed 01/13/2023) Performed for Dizziness and giddiness Results * TILT TABLE TEST WITHOUT AUTONOMIC STUDIES (01/13/2023 5:06 PM CDT) Narrative Yvrose Bundy MD - 01/13/2023 5:06 PM CDT Yvrose Bundy MD 01/15/2023 12:31 PM Autonomic Laboratory Studies December, 4:27:05 PM Testing Facility [facility], [facility] [address] [place] [address] [place] [id number] Reason for Referral: Dizziness Patient Profile Visit Remarks: 37yoFemale referred for Dizziness. Started about 3yrs ago. Sx - Dizziness, Vision Swimmy, Nausea, Racing heart, Fatigue, Face red/Purple. Standing up, Stooping/Bending to standing, Prolong standing, Exertion can trigger sx's. Sitting, Lying down can improve sx's. Meds - Lexapro (none 48hrs). Zeralto (took as normal). ID: [id number] Name: Dinora Singh Referring: Kenneth Menjivar M.D. Sex: Female Birthdate: 1985 Attending: Yvrose Bundy M.D. Height: 66 in Weight: 230 lbs Primary: Impression: TTT demonstrates delayed tachycardia without evidence of POTS, [place] or vasovagal syncope. Delayed tachycardia may be seen in dehydration, deconditioning, medication effects, or defects of venous return. Signature: Yvrose Bundy M.D. Director, Clinical Neurophysiology Time: 01/13/2023 3:10 PM Test Notes: Dizziness upon standing. Test Tilt Test - Version Date 3 Lease Out Man: Miller Mccall Tilt (ECG) Analysis - Version Date 3 Kenneth Menjivar MD NEUROLOGY ORDER JORGE Care Teams Sewing Machine Assembler Relationship Specialty Start Date End Date Rachel Lorenz DO [address] [facility] [address] [place] [phone] PCP - General Family Medicine 01/13/23
--- OUTSIDE RECORDS SUMMARY | 2024-12-12 15:47 | XMS_ITS | Referral Summary ---
Author Organization [facility] Address [address] [place] [address] Care Team Providers Care Dynamometer Tester Name Role Phone Rachel Lorenz DO Primary Care Provider [phone] Source Comments [facility],non-owned Affiliates and Associated Physician Practices is amultiple site organization consisting of ambulatory clinics and hospital sitesin [place], [place], [place] and [place]. This disclosure is being madepursuant to the Care Everywhere program and may not contain all information available regarding this patient. Last updated 18.[facility] [employer] Social History Tobacco Use Types Packs/Day Years Used Date Smoking Tobacco: Never Assessed Sex and Gender Information Value Date Recorded Sex Assigned at Not on file Gender Identity Not on file Sexual Orientation Not on file Plan of Treatment Not on file Care Teams Dynamometer Tester Relationship Specialty Start Date End Date Rachel Lorenz DO [address] [place] [address] [address] [place] [id number] PCP - General Family Medicine 01/13/23
--- OUTSIDE RECORDS SUMMARY | 2024-12-12 15:47 | XMS_ITS | Data Portability ---
Author Organization AYAD Silvio RANDALL Address [address] [facility] [place] [address] Care Team Providers Care Riding Instructor Name Role Phone MITALI MARK Electrogalvanizing Machine Operator Assessment Encounter Date Assessment Date Assessment LastModified by Organization Details LastModified Time 03/25/2016 03/25/2016 28 weeks, sugar test today. Needs to return to [facility]. (see note) Not available 03/25/2016 11:25:34 04/22/2016 04/22/2016 32 weeks, hx of blood clot, on lovenox, [facility] in 1 week for f/u Not available 04/22/2016 15:00:46 05/13/2016 05/13/2016 35 weeks, [facility] patient due to PE hx. and active anticoagulation issues for mom and baby. We are following as a courtesy to help with local NSTs only. Not available 05/13/2016 16:04:32 06/17/2016 06/17/2016 c/s 9 days ago : baby was 10'15 left side of incision had modest seroma I believe/ no erythema Not available 06/17/2016 15:37:17 07/22/2016 07/22/2016 Had c/s at [facility] due to being anticoagulated ( Hx of pulmonary embolus) Baby was 10'15 exam today normal - condoms for contraception Not available 07/22/2016 16:36:07 Plan of Treatment Reminders Order Date Submit Date Provider Last Modified By Organization Details Last Modified Time Details Appointments None recorded. Lab pap, LB + reflex to HR HPV if ASC-U - broom 2015 016 SILVERIO [facility], [address], [place], [address], 6 11:13:37 streptococc us group B, culture, unspecified specimen 2015 016 [email or web address] [facility], [address], [address], [place], [address], 6 09:24:20 Referral None recorded. Procedures None recorded. Surgeries None recorded. Imaging None recorded. Medication Orders None recorded. Patient TargetsNo targets recorded. Patient InstructionsNo instructions recorded. Reason for Referral None Reported. Results Created Date Observation Date Name Description Value Unit Range Abnormal Flag Note LastModifiedBy Organization Detail LastModifiedTime 03/25/20 16 03/26/2016 hemog lobin + hemat ocrit , blood hemoglobin 10.6 g/dL 11.1-1 5.9 below low normal Not Available [facility] ([facility]) [address] [place], [address], 03/26/2016 08:28:11 03/25/20 16 03/26/2016 hemog lobin + hemat ocrit , blood hematocrit 32.1 % 34.0-4 6.6 below low normal Not Available [facility] ([facility]) [address] [place], [address], 03/26/2016 08:28:11 03/25/20 16 03/26/2016 RPR (rapi d plasm a reagi n), serum RPR NON REACTI VE non reacti ve Not Available [facility] ([facility]) [address] [place], [address], 03/26/2016 08:28:12 03/25/20 16 03/26/2016 gluco se kellee ance test, post- 50G, 1-mika r gestational diabetes screen 147 mg/dL 65-139 above high normal ACCOR DING TO ADA, A GLUCO SE THRES HOLD OF >139 MG/DL AFTER 50-GR AM LOAD IDENT IFIES APPRO XIMAT JESUS 80% OF WOMEN WITH GESTA CHOLO L DIABE IWONA MELLI TUS, WHILE THE SENSI TIVIT Y IS FURTH ER INCRE ASED TO APPRO XIMAT JESUS 90% BY A THRES HOLD OF >129 MG/DL . Not Available [facility] ([facility]) [address] [place], [address], 03/26/2016 08:28:12 03/25/20 16 03/26/2016 antib nico scree n, serum or plasm a antibody screen NEGATI VE negati ve Not Available [facility] ([facility]) [address] [place], [address], 03/26/2016 08:28:12 03/29/20 16 03/29/2016 gluco se kellee ance test, 4 speci mens note: COMMEN T FOR DIAGN OSIS OF GESTA CHOLO L DIABE IWONA, AT LEAST TWO VALUE S MUST MEET OR EXCEE D DEL L LIMIT S, WHICH IS BASED ON 100 GM OF ORAL GLUCO SE CHALL ENGE. Not Available [facility] ([facility]) [address] [place], [address], 03/30/2016 06:15:11 03/29/20 16 03/30/2016 gluco se kellee ance test, 4 speci mens glucose - fasting 82 mg/dL 65-94 Not Available [facility] ([facility]) [address] [place], [address], 03/30/2016 06:15:11 03/29/2003/30/2016 gluco se kellee ance test, 4 speci mens glucose - 1 hour 153 mg/dL 65-179 Not Available [facility] ([facility]) [address] [place], [address], 03/30/2016 06:15:11 03/29/20 16 03/30/2016 gluco se kellee ance test, 4 speci mens glucose - 2 hour 131 mg/dL 65-154 Not Available [facility] ([facility]) [address] [facility] [place], [address], 03/30/2016 06:15:11 03/29/20 16 03/30/2016 gluco se kellee ance test, 4 speci mens glucose - 3 hour 112 mg/dL 65-139 Not Available [facility] ([facility]) [address] [facility], [place], [address], 03/30/2016 06:15:11 05/13/20 16 05/15/2016 cultu re, vagin al/re ctal, strep tococ cus group B strep gp B PAUL POSITI VE negati ve abnormal CENTE RS FOR DISEA SE CONTR OL AND PREVE NTION ([facility]) AND AMERI CAN CONGR ESS OF OBSTE TRICI ANS AND GYNEC OLOGI STS (ACOG ) GUIDE LINES FOR PREVE NTION OF PERIN ATAL GROUP B STREP TOCOC CRICKET (GBS) DISEA SE SPECI FY CO-CO LLECT ION OF A VAGIN AL AND RECTA L SWAB SPECI MEN TO MAXIM IZE SENSI TIVIT Y OF GBS DETEC TION. PER THE [facility] AND ACOG, SWABB ING BOTH THE LOWER VAGIN A AND RECTU M SUBST ANTIA LLY INCRE ASES THE YIELD OF DETEC TION CRISTIAN RED WITH SAMPL ING THE VAGIN A ALONE . PENIC ILLIN G, AMPIC ILLIN , OR CEFAZ RACHEL ARE INDIC ATED FOR INTRA PARTU M PROPH YLAXI S OF PERIN ATAL GBS COLON IZATI ON. REFLE X SUSCE PTIBI LITY TESTI NG SHOUL D BE PERFO RMED PRIOR TO USE OF CLIND AMYCI N ONLY ON GBS ISOLA IWONA FROM PENIC ILLIN -JO RGIC WOMEN WHO ARE CONSI DERED A HIGH RISK FOR ANAPH YLAXI S. TREAT MENT WITH VANCO MYCIN WITHO UT ADDIT IONAL TESTI NG IS WARRA NTED IF RESIS TANCE TO CLIND AMYCI N IS NOTED . Not Available [facility] ([facility]) [address] [facility], [place], [address], 05/15/2016 15:13:38 07/22/20 16 07/25/2016 pap, IG + refle x HPV if ASC-U diagnosis: COMMEN T NEGAT NOELLE FOR INTRA EPITH ELIAL LESIO N AND DONALD RAY . CELLU TOMASA CALDWELL ES ASSOC IATED WITH INFLA MMATI ON ARE PRESE NT. Not Available [facility] ([facility]) [address] [place], [address], 07/25/2016 11:13:37 07/22/20 16 07/25/2016 pap, IG + refle x HPV if ASC-U specimen adequacy: COMMEN T SATIS FACTO RY FOR EVALU ATION . ENDOC ERVIC AL AND/O R SQUAM OUS METAP LASTI C CELLS (ENDO CERVI CRICKET COMPO NENT) ARE PRESE NT. Not Available [facility] ([facility]) [address] [place], [address], 07/25/2016 11:13:37 07/22/20 16 07/25/2016 pap, IG + refle x HPV if ASC-U clinician provided ICD10: LUPE T Z39.2 Not Available [facility] ([facility]) [address] [place], [address], 07/25/2016 11:13:37 07/22/20 16 07/25/2016 pap, IG + refle x HPV if ASC-U performed by: LUPE T ISADORA OCONNOR, CYTOT LU VEGA T (ASCP ) Not Available [facility] ([facility]) [address] [place], [address], 07/25/2016 11:13:37 07/22/20 16 07/25/2016 pap, IG + refle x HPV if ASC-U . . Not Available [facility] ([facility]) [address] [place], [address], 07/25/2016 11:13:37 07/22/20 16 07/25/2016 pap, IG + refle x HPV if ASC-U note: COMMCITLALI T THE PAP SMEAR IS A SCREE CIERRA TEST SOPHIE PATTERSON TO AID IN THE DETEC TION OF TED LIGNA NT AND MALIG NANT CONDI TIONS OF THE UTERI NE CERVI X. IT IS NOT A DIAGN OSTIC PROCE DURE AND SHOUL D NOT BE USED THE SOLE MEANS OF DETEC TING CERVI CRICKET CANCE R. BOTH FALSE -POSI TIVE AND FALSE -NEGA TIVE REPOR TS DO OCCUR . Not Available [facility] ([facility]) [address] [facility], [place], [address], 07/25/2016 11:13:37 07/22/20 16 07/25/2016 pap, IG + refle x HPV if ASC-U test methodology: COMMEN T THIS LIQUI D BASED THINP REP(R ) PAP TEST WAS SCREE YESENIA WITH THE USE OF AN IMAGE GUIDE Gladys Mancera Not Available [facility] ([facility]) [address] [facility], [place], [address], 07/25/2016 11:13:37 07/22/20 16 07/25/2016 pap, IG + refle x HPV if ASC-U . COMMEN T THE HPV DNA REFLE X CRITE TURNER WERE NOT MET WITH THIS SPECI MEN RESUL T THERE FORE, NO HPV TESTI NG WAS PERFO RMED. Not Available [facility] ([facility]) [address] [facility], [place], [address], 07/25/2016 11:13:37 04/29/20 16 04/29/2016 ultra sound , surve y, OB mater nal eval No observ ation record ed. [facility] Electrogalvanizing Machine Operator [facility]aternal [facility] [address] [address], [place], [address], 05/13/2016 15:56:14 05/20/20 16 05/20/2016 bioph ysica l profi le No observ ation record ed. [facility] Electrogalvanizing Machine Operator [facility] [address] [address], [place], [address], 05/20/2016 17:24:03 05/27/20 16 05/27/2016 US, obste tric, bioph ysica l profi le No observ ation record ed. [email or web address] Not Available 2015 13:55:12 Result Notes None recorded. Problems Name Problem SNOMED Code Status Onset Date Resolution Date Notes Provider Name and Address Organization Details Recorded Time Threatened miscarriage 86880306 Active Lexis Freemancandice rogers JOSÉ MIGUEL null, [place] - [facility] 6 15:47:13 Glucose tolerance test during - baby not yet delivered outside reference range 849933279 Active Stacie Isringhau sen null, [place] - [facility] 6 16:36:21 Glucose tolerance test during - baby not yet delivered outside reference range 020525959 Completed Stacie Isringhau sen null, [place] - [facility] 6 16:36:21 Wound seroma 007392568 Active Mitali Mark MD Attn: Melissa ma,[address] [facility], [place], [address], [facility] 6 15:37:17 Problem Notes None recorded. Procedures Surgical History Date Name Laterality Status Provider Name and Address Organization Details Recorded Time 11/25/2013 Date of Last Pap Smear completed Karen Quick RN [facility] 10/20/2015 16:22:12 09/29/2012 Other completed Karen Quick RN [facility] 10/20/2015 16:11:35 09/29/2008 Other completed Karen Quick RN [facility] 10/20/2015 16:22:11 Imaging Results Imaging Date Name Status LastModified by Organiz ation Details LastModified Time 04/29/2016 ultrasound, survey, OB maternal eval completed [email or web address] [place] [address] Electrogalvanizing Machine Operator [facility] [address] [facility] [address], [place], [address], 05/13/2016 15:56:14 05/20/2016 biophysical profile completed [email or web address] [place] [address] Electrogalvanizing Machine Operator [facility]tras[facility] [address] [facility] [address], [place], [address], 05/20/2016 17:24:03 05/27/2016 US, obstetric, biophysical profile completed [email or web address] Information not available 05/27/2016 13:55:12 Procedure Notes None recorded. Medical Equipment None Reported. Allergies No known drug allergies Medications Name Sig Start Date Stop Date Status Note LastModified by Organization Details LastModified Time cyclobenzaprine 10 mg tablet active Not Available Not Available Not Available amoxicillin 500 mg capsule active Not Available Not Available N ot Available prednisone 10 mg tablet active Not Available Not Available No t Available atorvastatin 20 mg tablet active Not Available Not Available No t Available fluconazole 150 mg tablet Take 1 tablet as needed by oral route for 1 day. active Not Available Not Available No t Available hydrocodone 5 mg-acetaminophe n 325 mg tablet active Not Available Not Availa ble Not Available ondansetron HCl 4 mg tablet active Not Available Not Available Not Available terconazole 0.8 % vaginal cream active Not Available Not Availa ble Not Available sulfamethoxazol e 800 mg-trimethoprim 160 mg tablet active Not Available Not Availabl e Not Available hydrocodone 10 mg-acetaminophe n 325 mg tablet active Not Available Not Availa ble Not Available oxycodone-aceta minophen 5 mg-325 mg tablet active Not Available Not Available Not Available famotidine 20 mg tablet active Not Available Not Available No t Available benzonatate 100 mg capsule active Not Available Not Available N ot Available cephalexin 500 mg capsule active Not Available Not Available N ot Available pantoprazole 40 mg tablet,delayed release active Not Available Not Available Not Available ursodiol 300 mg capsule active Not Available Not Available Not Available omeprazole 20 mg capsule,delayed release active Not Available Not Available Not Available amoxicillin 250 mg capsule active Not Available Not Available N ot Available azelastine 137 mcg (0.1 %) nasal spray active Not Available Not Available Not Available ibuprofen 600 mg tablet active Not Available Not Available No t Available methylprednisol one 4 mg tablets in a dose pack active Not Available Not Available No t Available Vitamin D2 1,250 mcg (50,000 unit) capsule active Not Available Not Available Not Available heparin (porcine) 10,000 unit/mL injection solution active Not Available Not Available Not Available ondansetron 4 mg disintegrating tablet active Not Available Not Available Not Available glyburide 1.25 mg tablet active Not Available Not Available No t Available fluticasone propionate 50 mcg/actuation nasal spray,suspensio n active Not Available Not Available Not Available amoxicillin 875 mg-potassium clavulanate 125 mg tablet active Not Available Not Available No t Available enoxaparin 40 mg/0.4 mL subcutaneous syringe active Not Available Not Available Not Available enoxaparin 120 mg/0.8 mL subcutaneous syringe active Not Available Not Available Not Available medroxyprogeste eduardo 150 mg/mL intramuscular syringe active Not Available Not Available Not Available Jantoven 5 mg tablet active Not Available Not Available Not Available Jantoven 10 mg tablet active Not Available Not Available Not Available nitrofurantoin monohydrate/mac rocrystals 100 mg capsule Take 1 capsule every 12 hours by oral route for 7 days. active Not Available Not Available No t Available Diclegis 10 mg-10 mg tablet,delayed release active Not Available Not Available Not Available Prenate Essential (iron asparto glycinate) 18 mg iron-1 mg-300 mg cap Take 1 capsule every day by oral route for 30 days. 2015 active Not Available Not Available Not Avai lable Accu-Chek Fastclix Lancet Drum active Not Available Not Available Not Available Vitals Date Recorded Body weight Body height Body mass index (BMI) Systolic blood pressure Diastolic blood pressure Provider Name and Address Organization Details Last Updated DateTime 03/25/2016 722393.9 7805 g 167.64 cm 42.8 kg/m2 108 mm[Hg] 68 mm[Hg] Lexis rogers MA [facility] 6 11:06:47 Date Recorded Body height Body mass index (BMI) Body weight Diastolic blood pressure Provider Name and Address Organization Details Last Updated DateTime 04/22/2016 167.64 cm 43.7 kg/m2 578401.53 227 g 112 mm[Hg] Lexis Carrion [facility] 04/22/2016 14:47:36 Date Recorded Body height Body weight Body mass index (BMI) Systolic blood pressure Diastolic blood pressure Provider Name and Address Organization Details Last Updated DateTime 05/13/2016 167.64 cm 856143.0 8649 g 44.7 kg/m2 118 mm[Hg] 76 mm[Hg] Lexis rogers [facility] 6 15:53:10 Date Recorded Body height Body weight Body mass index (BMI) Systolic blood pressure Diastolic blood pressure Provider Name and Address Organization Details Last Updated DateTime 06/17/2016 167.64 cm 206078.8 3146 g 41.6 kg/m2 112 mm[Hg] 80 mm[Hg] Lexis rogers JOSÉ MIGUEL [facility] 6 15:07:45 Date Recorded Body height Body weight Body mass index (BMI) Systolic blood pressure Diastolic blood pressure Provider Name and Address Organization Details Last Updated DateTime 07/22/2016 167.64 cm 131006.3 2 g 39.9 kg/m2 105 mm[Hg] 72 mm[Hg] Lexis rogers [facility] 6 16:22:03 Social History Question Answer Notes LastModified by Organizat ion Details LastModified Time Tobacco Smoking Status Unknown If Ever Smoked Karen Quick RN null, [facility] 10/20/2015 16:22:12 Marital Status Single Informat ion not available 11/22/2015 How Many Children Do You Have? 1 Information not available 06/17/2016 Sex: Unknown Functional Status None recorded. Mental Status None recorded. Family History Nothing Reported Notes:no breast ca hx Medical History Condition Response High Cholesterol Y Pulmonary Embolism Y Gynecological History Statement/Question Response Abnormal Pap N Date of Last Pap Smear 11/25/2013 Current Control Method None LMP Definite Desired Control Method None Obstetrics History GPAL:G 1 P 1 0 0 1 Type Value Full Term 1 Living 1 Total 1 Past Encounters Encounter ID Performer Location Encounter Start Date Encounter Closed Date Diagnosis/Indication Diagnosis SNOMED-CT Code Diagnosis ICD10 Code Diagnosis Note [id number] Stacie Torrez ([facility]) [address] [place] [address] 11/22/2015 11:07:36 11/23/2015 11:40:05 Normal 28037518 Z34.91 Z34.90 [id number] Stacie Torrez ([facility]) [address] [place] [address] 12/22/2015 11:51:27 12/25/2015 17:21:03 Normal 35522888 Z34.91 Z34.90 History of pulmonary embolus 711360457 Z86.711 [id number] Stacie Torrez ([facility]) [address] [facility] [place] [address] 01/08/2016 12:26:24 01/08/2016 15:16:20 Normal 87360619 Z34.91 Z34.90 History of pulmonary embolus 985435406 Z86.711 [id number] Stacie [facility] ([facility]) [address] [facility] [place] [address] 02/12/2016 14:15:29 02/12/2016 16:02:03 Normal 39905680 Z34.91 Z34.90 History of pulmonary embolus 016060425 Z86.711 [id number] Stacie [facility] ([facility]) [address] [facility] [place] [address] 03/18/2016 16:15:17 03/19/2016 10:58:50 Normal 24887110 Z34.91 Z34.90 History of pulmonary embolus 329260397 Z86.711 [id number] Stacie Patino [facility] ([facility]) [address] [facility] [place] [address] 03/25/2016 10:48:54 03/25/2016 13:05:20 Normal 64281867 Z34.91 Z34.90 History of pulmonary embolus 488328033 Z86.711 [id number] Stacie [facility] ([facility]) [address] [facility] [place] [address] 04/22/2016 14:40:03 04/22/2016 15:15:04 Normal [id number] Z34.91 Z34.90 [id number] St[facility]ie [facility] ([facility]) [address] [facility] [place] [address] 05/13/2016 15:33:43 05/14/2016 10:29:16 Normal 75476402 Z34.91 Z34.90 History of pulmonary embolus 463590900 Z86.711 [id number] St[facility]ie [facility] ([facility]) [address] [facility] [place] [address] 06/17/2016 14:59:00 06/17/2016 15:39:14 Wound seroma 485034624 T88.8XXA [id number] MD Nichole Lima [facility] ([facility]) [address] [facility] [address] [place] [address] 07/22/2016 15:46:31 07/23/2016 11:08:42 care 384513123 Z39.2 History of pulmonary embolus 318966375 Z86.711 Health Concerns Section Related Observation LastModified by Organization Detai ls LastModified Time None Recorded Concern Status LastModified by Organization Details LastModified Time None Recorded Advance Directives Directive None Recorded Payers Encounter Date Sequence Insurance Name Policy Number Policy Price Covered Member ID Price Member ID Guarantor Name 03/25/2016 1 [place] [id number] Dinora A Dargatz [id number] Dinora A Dargatz 04/22/2016 1 [place] [id number] Dinora A Dargatz [id number] Dinora A Dargatz 05/13/2016 1 [place] [id number] Dinora A Dargatz [id number] Dinora A Dargatz 06/17/2016 1 [place] [id number] Dinora A Dargatz [id number] Dinora A Dargatz 07/22/2016 1 [place] [id number] Dinora A Dargatz [id number] 17 Dinora A Dargatz OBGyn Episode Ob Episode Information Episode Created Date Number of Fetuses Patient Bloodtype Patient rh Status Prepregnancy Weight lbs Domestic Partner Domestic Partner Phone Father Name Gravel Roofer Status 11/22/19 16 1 A Positive CLOSED Fetus Data First Name Last Name Admitted to NICU Weight (g) Sex Living Outcome Pediatric Complications Fetus ID Race Codes Race Delivery Type Domenico tucker false 4961.16 25 M true Full Term [id number] 2106-3 White Problems Problem Notes Problem Name Start Date End Date Resolution Snomed Code Not e Glucose tolerance test durin g - baby not yet delivered outside reference range 314589112 Jose Calculation Initial Jose Date Initial Exam Date Initial Exam Provider Initial Ultrasound Date Last Menstrual Period Date Ultra Sound Weeks Gestation 06/14/2016 11/22/2015 12/25/2015 09/08/2015 15 Eighteen To Twenty Week Jose Update Ultra Sound Date Fundal Height At Umbil Quickening Date Ultra Sound Latest Weeks Gestation Final Jose Confirmed By Final Jose Confirmed Date Final Jose Date Ultra Sound Latest Days Gestation 01/22/20 16 19 [email or web address] 06/28/2016 016 6 Pre- Flowsheet Flowsheet Date 11/22/2015 Medina Score Blood Edema Fundus Height Fundus Units Glucose Ketones Leukocytes Nitrite Labor Signs Protein Cervic Dilation Cervic Effacement Cervic Station 11 wks 0cm 0% -4 Type Weight in lbs Pre/Post Dialysis Refused 236.602396132973 BP Diastolic BP Location Tested BP Systolic BP Type 78 116 sitting Fetus Heart Rate Present A 168 Present Fetus Movement Comments First , unplanned, surprise. Has hx of Pulmonary Embolus in 2011 - will arrange [facility] consultation. Also had urethral diverticulum repaired. Flowsheet Date 12/22/2015 Medina Score Blood Edema Fundus Height Fundus Units Glucose Ketones Leukocytes Nitrite Labor Signs Protein Cervic Dilation Cervic Effacement Cervic Station Type Weight in lbs Pre/Post Dialysis Refused 239.68594915125 BP Diastolic BP Location Tested BP Systolic BP Type 64 100 sitting Fetus Heart Rate Present A 156 Present Fetus Movement Comments Has HROM apt and US on Monda y. Took awhile to find FHTs today, retroverted? dates? Flowsheet Date 01/08/2016 Medina Score Blood Edema Fundus Height Fundus Units Glucose Ketones Leukocytes Nitrite Labor Signs Protein Cervic Dilation Cervic Effacement Cervic Station Type Weight in lbs Pre/Post Dialysis Refused 239.553437107910 BP Diastolic BP Location Tested BP Systolic BP Type 76 102 sitting Fetus Heart Rate Present A 155 Present Fetus Movement Comments Discussed HROB reccomendatio ns of delivery n [facility] due to anticoagulation. Will try to help out here as much as possible, but care has been shifted to HROB Flowsheet Date 02/12/2016 Medina Score Blood Edema Fundus Height Fundus Units Glucose Ketones Leukocytes Nitrite Labor Signs Protein Cervic Dilation Cervic Effacement Cervic Station 22 cm Type Weight in lbs Pre/Post Dialysis Refused 250.129430483481 BP Diastolic BP Location Tested BP Systolic BP Type 58 102 sitting Fetus Heart Rate Present A 144 Present Fetus Movement A Yes Comments Continues with HROB. Lovenox challenges... Considering Derrick as boys name... Flowsheet Date 03/18/2016 Medina Score Blood Edema Fundus Height Fundus Units Glucose Ketones Leukocytes Nitrite Labor Signs Protein Cervic Dilation Cervic Effacement Cervic Station 26 cm Type Weight in lbs Pre/Post Dialysis Refused 263.274829171581 BP Diastolic BP Location Tested BP Systolic BP Type 75 114 sitting Fetus Heart Rate Present A 145 Present Fetus Movement A Yes Comments Reports she has stopped taki ng Lovenox due to cost, also reports a 100$/visit bill to [facility]. DOing well otherwise, but we need to find out what it will take to get her the correct medicine and ability to continue with MFM. SHe is not interested in delivering at [facility] and will be looking into other options Flowsheet Date 03/25/2016 Medina Score Blood Edema Fundus Height Fundus Units Glucose Ketones Leukocytes Nitrite Labor Signs Protein Cervic Dilation Cervic Effacement Cervic Station 28 cm none neg Type Weight in lbs Pre/Post Dialysis Refused 265.799201035438 BP Diastolic BP Location Tested BP Systolic BP Type 68 108 sitting Fetus Heart Rate Present A 146 Present Fetus Movement A Yes Comments She has spoken with [facility] abo ut returning to discuss less costly anticoagulant therapyas well as some of her concerns with the facilities. ( cleanliness/timeliness)I again stressed the critical nature of her blood clot history and risks for this and that she and the baby really need to be at a tertiary care facility. Flowsheet Date 04/22/2016 Medina Score Blood Edema Fundus Height Fundus Units Glucose Ketones Leukocytes Nitrite Labor Signs Protein Cervic Dilation Cervic Effacement Cervic Station 30 wks Type Weight in lbs Pre/Post Dialysis Refused [id number] BP Diastolic BP Location Tested BP Systolic BP Type 112 sitting Fetus Heart Rate Present A 146 Present Fetus Movement A Yes Comments doing well. back on Lovenox, cheaper at [facility].HAs [facility] apt next Friday Flowsheet Date 05/13/2016 Medina Score Blood Edema Fundus Height Fundus Units Glucose Ketones Leukocytes Nitrite Labor Signs Protein Cervic Dilation Cervic Effacement Cervic Station none 34 cm none neg Type Weight in lbs Pre/Post Dialysis Refused [phone] BP Diastolic BP Location Tested BP Systolic BP Type 76 118 sitting Fetus Heart Rate Present A 142 Present Fetus Movement A Yes Comments Recent polyhydramnios diagno sis, has upcoming [facility] follow up.We help with the weekly NSTs.Delivery to be at [facility] as delineated in first [facility] consult. (some confusion among residents...) Flowsheet Date 06/17/2016 Medina Score Blood Edema Fundus Height Fundus Units Glucose Ketones Leukocytes Nitrite Labor Signs Protein Cervic Dilation Cervic Effacement Cervic Station Type Weight in lbs Pre/Post Dialysis Refused [id number] BP Diastolic BP Location Tested BP Systolic BP Type 80 112 sitting Fetus Heart Rate Present Fetus Movement Comments Menstrual History Last Menstrual Date Menses Monthly On Bcp Conception Prior Menses Frequency Hcg Plus Date Menarche Onset Age 1209/08/2015 Delivery Information Delivery Date Delivery Type Labor Anesthesia Weeks Gestation Incision Type Labor Labor Length Hrs Delivered By Post Complications Tubal Sterilization Discharge Date Comments 6 Induce d Regional-Ep idural 37.5 Low Transvers e false 5 Dr. Funes 06/12/2016 for arrest if dilatatio n (5cm) Del. @ Liberal Discharge Information Feeding Method Contraceptive Method Maternal HG B and HCT Levels Bottle
[2024-12-12 16:19] LABS: Add Urine Microscopic? YES; Appearance Urine Cloudy (Clear); Bacteria Urine None Seen /hpf; Bilirubin Urine Negative (Negative); Blood Urine Negative (Negative); Calcium Oxalate Crystals Urine Present /hpf; Color Urine Dark Yellow (Yellow); Glucose Urine UA Negative (Negative); Ketones Urine Trace mg/dL (Negative); Leukocyte Esterase Ur Negative LEU/UL (Negative); Mucus Urine Present /lpf; Need Manual Microscopic Reviewed; Nitrate Urine Negative (Negative); Non Pathogenic Casts 0-2; Protein Urine Trace mg/dL (Negative); RBC Urine 0-2 /hpf (0-2); Specific Grav Ur 1.031 (1.001-1.035); Squamous Epithelial Cell Urine Occasional /hpf (Few); WBC Urine 0-5 /hpf (0-3); pH Urine 5.5 (5.0-9.0)
--- NOTE | 2024-12-12 16:26 | PC.NURSE ---
Dr Flores informed of adm c/o, orders received.
--- NOTE | 2024-12-12 18:12 | PC.NURSE ---
Dr Flores informed of US resutls, OK to check cervix. If closed ok to dc home.
--- NOTE | 2024-12-20 11:10 | PM.OBTRLD ---
OB - Triage/Final Diagnosis Visit Information Reason for evaluation: other (vaginal spotting in ) Comments/Additional reasons for admission: I have assessed the risk for this patient, Dinora Singh, and determined that she would benefit from observation care. Evaluation Laboratory results: Laboratory Tests 12/12/24 16:03 Urine Color Dark yellow Urine Appearance Cloudy H Urine pH 5.5 Ur Specific [place] 1.031 Urine Protein Trace Urine Glucose (UA) Negative Urine Ketones Trace H Ur Blood (Man) Negative Urine Nitrate Negative Urine Bilirubin Negative Urine Urobilinogen 1.0 Ur Leukocyte Esterase Negative Add Ur Microanalysis Reviewed Urine RBC 0-2 Urine WBC 0-5 Ur Squamous Epith Cells Occasional Calcium Oxalate Crystal Present Urine Bacteria None seen Urine Casts 0-2 Urine Mucus Present
== END 2024-12-12 18:40 | disposition home or self-care (01) ==
PROVIDERS: Admitting Provider Obstetrics & Gynecology Gynecology; Visit Provider Obstetrics & Gynecology Gynecology
DX: O26.852 Spotting complicating pregnancy, second trimester (principal); Z3A.26 26 weeks gestation of pregnancy
CPT/HCPCS: 76815; 81001; 87086; G0378; G0379

== ENCOUNTER 2025-03-07 10:07 | Outpatient (CLI) | payer OTHER, SELFPAY ==
[2025-03-07 10:58] LABS: Hematocrit 35.6 % (37.0-47.0); Hemoglobin 11.4 g/dL (12.0-15.0); Mean Corpuscular Hemoglobin 28.7 pg (26-34); Mean Corpuscular Volume 89.7 fl (80-100); Mean Platelet Volume 10.5 fl (7.4-10.4); Platelet Count Result 185 k/mm3 (150-375); Red Blood Count 3.97 M/mm3 (4.2-5.4); Red Cell Distribution Width 15.8 % (11.5-14.5); White Blood Count 8.5 K/mm3 (4.5-10.0)
--- OUTSIDE RECORDS SUMMARY | 2025-03-07 11:14 | XMS_ITS | Clinical Summary ---
Author Organization [facility] Address [address] [place] [address] Phone Care Team Providers Care Direct Marketing Executive Name Role Phone Rachel Lorenz Primary Care Provider [phone] Allergies No known active allergies Medications Multiple [...] H/O section 07/01/2016 017 Overview (07/01/2016): 2016 Immunizations Immunization Administration Dates Next Due Influenza [...] Master's degree (e.g., MA, MS, Renea, MEd, MICROFILM MACHINE OPERATOR, VIDAL) 03/24/2020 Sexually Active Control Partners Comments Yes Injection Male Estimated Date of Delivery Comme nts Yes 03/15/2025 Sex and Gender Information Value Date Recorded Sex Assigned at Not on file Legal Sex Female 8:35 PM CDT Gender Identity Not on file Sexual Orientation Not on file Last Filed Vital Signs Vital Sign Reading Time Taken Comments Blood Pressure 104/72 11/07/2024 9:08 AM PHOTO STYLIST Pulse 122 11/07/2024 9:08 AM PHOTO STYLIST Temperature 36.8 C (98.3 F) 11/07/2024 9:08 AM PHOTO STYLIST Respiratory Rate 18 11/07/2024 9:08 AM PHOTO STYLIST Oxygen Saturation 98% 11/07/2024 9:08 AM PHOTO STYLIST Inhaled Oxygen Concentration - - Weight 105.7 kg (233 lb) 11/12/2022 5:39 PM PHOTO STYLIST Height 167.6 cm (5' 6) 06/30/2020 8:32 AM CDT Body Mass Index 37.61 06/30/2020 8:32 AM CDT Plan of Treatment Health Maintenance Due Date Last Done Comments Hepatitis C Virus (HCV) Screening 1986 Human Papillomavirus (HPV) Immunization (1 - 3-dose series) 2001 Hepatitis B Immunization (1 of 3 - [...] Type Associated Problems Recent Progress Patient-Stated? Author [facility] On track(2019 9:37 AM CDT) Yes Gay Fitzpatrick LCPC Note: Nita reported she desires to get some coping methods from counseling; to have reduction of depression symptoms. Goal Reviewed with: patient Readiness to change: Thinking about making a change Department associated with goal: [facility] Steps to achieve goal: [...] making a change Department associated with goal: [facility] Steps to achieve goal: 1. Nita will attend counseling/psychotherapy sessions at least twice monthly, utilizing sessions to express thoughts and feelings. 2. Nita will verbalize understanding of depression , ex: causes/contributing and risk factors, prevalence of conditions in the general population. Procedures Procedure Name Priority Date/Time Associated Diagnosis Comments PATHOLOGY CYTOLOGY BAKERY ASSISTANT Routine 07/22/2016 from Last 3 Months or Most Recently Relevant to Health Maintenance Results * PATHOLOGY CYTOLOGY BAKERY ASSISTANT (07/22/2016) Specimen of unknown material (specimen) us Oren Durham MD PATHOLOGY/CYTOLOGY ORD ERABLES Final Result from Last 3 Months or Most Recently Relevant to Health Maintenance Insurance [facility] Member Subscriber Plan / Payer (Ef fective 2023-Present) Name:Nita Singh Relation to Subscriber:Self Name:Georges Singhlois Fischer Payer ID:[id number] (NAIC) Type:Not on file Address: [facility] [id number] [place] [id number] Care Teams Direct Marketing Executive Relationship Specialty Start Date End Date Rachel Lorenz DO [address] [facility] [place] [address] PCP - General Family Medicine 04/24/22
--- OUTSIDE RECORDS SUMMARY | 2025-03-07 11:14 | XMS_ITS | Clinical Summary ---
Author Organization [facility] [place] [address] Address [address] [place] [address] Care Team Providers Care Commercial Real Estate Attorney Name Role Phone Collin Taylor MD Unavailable [phone] J Carlos Araujo MD Primary Care Provider [phone] Allergies No known active allergies Medications enoxaparin (LOVENOX) 80 mg/0.8 mL syringe DAILY. INJECT 0.8 ML SUBCUTANEOUSLY TWICE A DAY. 4 Active vit no.124/iron/fo lic ( VITAMIN ORAL) Take by mouth Ac tive Active Problems Problem Noted Date Diagnosed Date Chronic bilateral low back pain with bilateral s ciatica 08/12/2024 Class 2 severe obesity due t o excess calories with serious comorbidity and body mass index (BMI) of 38.0 to 38.9 in adult 11/10/2023 Assessment & Plan (08/12/2024 10:23 AM TOWER HELPER): Wt Readings from Last 3 Encounters: 08/12/24 [...] bid Assessment & Plan (11/10/2023 10:43 AM TOWER HELPER): Wt Readings from Last 3 Encounters: 11/10/23 [...] 08/13/2021 Assessment & Plan (08/12/2024 10:24 AM TOWER HELPER): Discussed lifestyle modifications, diet and exercise. Routine blood work ordered/reviewed today. Yearly vision and dental examinations. Assessment & Plan (08/06/2023 11:58 AM TOWER HELPER): Discussed lifestyle modifications, diet and exercise. Routine blood work ordered/reviewed today. Yearly vision and dental examinations. Assessment & Plan (08/13/2021 8:27 AM TOWER HELPER): -Recommended: Healthy diet. Avoiding junk food/fast food. [...] own. Assessment & Plan (08/12/2024 10:23 AM TOWER HELPER): Stable at thsi time Stopped both lexapro and wellbutrin Assessment & Plan (03/04/2024 4:30 PM CDT): Stable at thsi time Continue lexapro 10 gm every day, wellbutrin 150 mg bid Assessment & Plan (12/15/2023 12:32 PM CDT): C/w lexapro 10 mg every day, continue wellbutrin 150 mg bid Stable otherwise Assessment & Plan (11/10/2023 10:42 AM TOWER HELPER): Stable with lexapro 10 mg every day, continue wellbutrin 150 mg bid Assessment & Plan (08/06/2023 11:43 AM TOWER HELPER): Not at goal Had no improvement with [...] months Assessment & Plan (08/12/2024 10:29 AM TOWER HELPER): Following with ob now as she is [...] hypercholesterolemia Assessment & Plan (08/12/2024 10:24 AM TOWER HELPER): Lab Results Component Value Date CHOL 244 [...] meds. Assessment & Plan (08/13/2021 8:27 AM TOWER HELPER): Lipid abnormalities are stable, reviewed previous lipid levels in [facility]. Pharmacotherapy as ordered. Order for [...] day Assessment & Plan (11/10/2023 10:44 AM TOWER HELPER): Wt Readings from Last 3 Encounters: 11/10/23 [...] 10/16/2021. Assessment & Plan (10/17/2021 9:10 AM TOWER HELPER): Encouraged patient to treat symptoms or [id number]-[id number] medications as appropriate. Increase water intake, rest, consider bland diet, advance as tolerated. Acute non-recurrent pansinusitis 10/17/2021 02/11/2022 Assessment & Plan (10/17/2021 9:10 AM TOWER HELPER): Trial oral steroids to help with sinus pressure and pain. Acute left-sided low back pa in with left-sided sciatica 09/11/2021 02/11/2022 Assessment & Plan (09/11/2021 1:54 PM TOWER HELPER): X-rays ordered of the lumbar spine. Trial of oral steroids given. Patient left without giving urine sample. Cervicalgia 08/13/2021 08/01/2022 Assessment & Plan (08/13/2021 8:28 AM TOWER HELPER): Neck pain has improved with Flexeril. Will renew Flexeril for p.r.n. use in case it flares again. Will also refer to physical therapy for stretching exercises and home exercise program Chronic bilateral low back p ain without sciatica 08/13/2021 09/10/2021 Assessment & Plan (08/13/2021 8:29 AM TOWER HELPER): States she periodically has low back pain [...] (01/19/2021): Assessment & Plan (08/06/2023 11:58 AM TOWER HELPER): Wt Readings from Last 3 Encounters: 08/06/23 [...] recommended. Assessment & Plan (10/17/2021 9:11 AM TOWER HELPER): Weight reduction, daily exercise and dietary modifications recommended, when able. Assessment & Plan (09/11/2021 1:54 PM TOWER HELPER): Weight reduction, daily exercise and dietary modifications recommended. Assessment & Plan (01/19/2021 11:54 AM CDT): Weight reduction, daily exercise and dietary modifications recommended. Acute cystitis without hematuria 01/19/2021 Encounters Date Type Department Care Team Description 02/07/2025 9:05 AM CDT [address] [place] [address] 01/11/2025 3:45 PM CDT Office Visit [facility] [place] [address] [place] [address] Ana Woodson NP Upper respiratory tract infection, unspecified type (Primary Dx) 12/22/2024 8:40 AM CDT Lab [address] [address] from Last 3 Months Immunizations Immunization Administration [...] on file Legal Sex Female 11:56 PM TOWER HELPER Gender Identity Female 05/20/2021 3:10 PM CDT Sexual Orientation Straight 05/20/2021 3 :10 PM CDT Obstetrics History Para Term AB [...] Sign Reading Time Taken Comments Blood Pressure 110/70 01/11/2025 3:50 PM CDT Pulse 86 01/11/2025 3:50 PM CDT Temperature 36.7 C (98.1 F) 01/11/2025 3:50 PM CDT Respiratory Rate 16 01/11/2025 3:50 PM CDT Oxygen Saturation 98% 01/11/2025 3:50 PM CDT Inhaled Oxygen Concentration - - Weight 113.4 kg (250 lb) 01/11/2025 3:50 PM CDT Height 165.1 cm (5' 5) 01/11/2025 3:50 PM CDT Body Mass Index 41.6 01/11/2025 3:50 PM CDT Plan of Treatment Health Maintenance Due [...] Procedure Name Priority Date/Time Associated Diagnosis Comments GTT 100GM 3HR GESTATIONAL DIAGNOSTIC Routine 02/07/2025 12:33 PM CDT GTT 100GM 2HR GESTATIONAL DIAGNOSTIC Routine 02/07/2025 11:33 AM CDT GTT 100GM 1HR GESTATIONAL DIAGNOSTIC Routine 02/07/2025 10:33 AM CDT HEMOGLOBIN AND HEMATOCRIT Routine 02/07/2025 9:14 AM CDT GTT 100GM FASTING GESTATIONAL DIAGNOSTIC Routine 02/07/2025 9:14 AM CDT RPR Routine 02/07/2025 9:14 AM CDT GTT 50GM 1HR GESTATIONAL SCREEN Routine 12/22/2024 9:55 AM CDT VITAMIN D 25 HYDROXY Routine 12/22/2024 9:55 AM CDT HEMOGLOBIN A1C Routine 12/22/2024 9:55 AM CDT HIV 1/2 ANTIBODY PLUS P24 ANTIGEN Routine 12/22/2024 9:55 AM CDT HEPATITIS C ANTIBODY Routine 01/19/2021 11:50 AM CDT Encounter for hepatitis C screening test for low risk patient HM PAP SMEAR WITH HPV Routine 10/30/2017 from Last 3 Months or Most Recently Relevant to Health Maintenance Results * GTT 100gm 3hr gestational diagnostic (02/07/2025 12:33 PM CDT) GTT 100g 3h gest 134 <=139 mg/dL Blood 02/07/2025 12:3 3 PM CDT 02/07/2025 12:44 PM CDT us Noemy Flores MD LAB BLOOD ORDERABLES Fin al Result BRIA MALIK OTOE) 1 [facility] Department [place] [address] * GTT 100gm 2hr gestational diagnostic (02/07/2025 11:33 AM CDT) GTT 100g 2h gest 154 <=154 mg/dL Blood 02/07/2025 11:3 3 AM CDT 02/07/2025 12:41 PM CDT Noemy Flores MD LAB BLOOD ORDERABLES Fin al Result Performing Organization Address City/[facility] Co de Phone Number BRIA MALIK (OTOE) 1 [facility] [place] [address] * GTT 100gm 1hr gestational diagnostic (02/07/2025 10:33 AM CDT) GTT 100g 1h gest 149 <=179 mg/dL Blood 02/07/2025 10:3 3 AM CDT 02/07/2025 10:44 AM CDT Noemy Flores MD LAB BLOOD ORDERABLES Fin al Result Performing Organization Address [facility] de Phone Number BRIA MALIK (OTOE) 1 [place] [address] * GTT 100gm fasting gestational diagnostic (02/07/2025 9:14 AM CDT) GTT 100g fasting gest 87 <=94 mg/dL Comment: Interpretive data 100 gram 3 hour Gestational Diabetes Diagnostic Diagnostic criteria require that 2 or more of the following criteria be met: Fasting: > or = to 95 mg/dL 1 hour: > or = to 180 mg/dL 2 hour: > or = to 155 mg/dL 3 hour: > or = to 140 mg/dL Reference Interval Info: Dyan Mckinley,et al. Navya Compared with National Diabetes Data Group Criteria for Diagnosing Gestational Diabetes. Obstetrics and Gynecology 2016:127 (5): 893-898. Diabetes Care 2020; 43(Suppl 1):S14-31 Current interpretive data was last revised 2020. Blood 02/07/2025 9:14 AM CDT 02/07/2025 9:16 AM CDT Noemy Flores MD LAB BLOOD ORDERABLES Fin al Result Performing Organization Address [facility]/ZIP Co de Phone Number BRIA ArboledaOTOE) 1 [facility] Department [place] [address] * (ABNORMAL) Hemoglobin and hematocrit (02/07/2025 9:14 AM CDT) Pathologist [facility] Hgb 10.5(L) 11.9 - 15.5 g/dL Hct 32.4(L) 35.6 - 45.5 % BRIA MALIK (OTOE) Blood 02/07/2025 9:14 AM CDT 02/07/2025 9:16 AM CDT us Noemy Flores MD LAB BLOOD ORDERABLES Fin al Result BRIA MALIK OTOE) [address] [place] [address] * RPR Blood (02/07/2025 9:14 AM CDT) [facility] RPR Nonreactive Nonreactive Comment:Testing performed by : [facility], [address] [place] [address], [address] Blood 02/07/2025 9:14 AM CDT 02/07/2025 11:43 AM CDT us Noemy Flores MD LAB MICROBIOLOGY - GENER AL ORDERABLES Final Result Performing Organization Address City/[facility]/ZIP Co de Phone Number BRIA MALIK (OTOE) 1 [facility] [place] [address] * GTT 50gm 1hr gestational screen (12/22/2024 9:55 AM CDT) Pathologist [facility] GTT 50g gest screen 133 <=140 mg/dL Comment: Interpretive Data Used for suspected gestational diabetes. The screening test uses 50 grams of glucose with sample obtained 1 hr later. Normal range: < 140 mg/dL. A glucose value of >140 mg/dL generally indicates the need for a full diagnostic tolerance test. Reference Interval Info: Diabetes Care 2005, Vol 28. Supplement 1,S37-S42. Report of the Expert Committee on the Diagnosis and Classification of Diabetes Mellitus. Diabetes Care 2020; 43(Supplement 1):S14-31. Current interpretive data was last revised on 2020. Blood 12/22/2024 9:55 AM CDT 12/22/2024 10:48 AM CDT Noemy Flores MD LAB BLOOD ORDERABLES Fin al Result Performing Organization Address City/[facility]/ZIP Co de Phone Number BRIA [facility] (OTOE) 1 [facility] [place] [address] * HIV 1/2 Antibody plus p24 Antigen Blood (12/22/2024 9:55 AM CDT) Pathologist [facility] HIV 1/2 ab + p24 ag Nonreactive Nonreactive Comment: Nonreactive for HIV-1 antigen and HIV-1/HIV-2 antibodies. No laboratory evidence of HIV infection. If acute HIV infection is suspected, consider testing for HIV-1 RNA. Testing performed by: [facility], [address] [place] [address], [facility] Blood 12/22/2024 9:55 AM CDT 12/22/2024 4:12 PM CDT us Noemy Flores MD LAB MICROBIOLOGY - GENER AL ORDERABLES Final Result Performing Organization Address [facility] Co de Phone Number BRIA [facility] (OTOE) 1 [facility] [place] [address] * Vitamin D 25 hydroxy (12/22/2024 9:55 AM CDT) Pathologist [facility] Vitamin D 25-OH 44 30 - 80 ng/mL Blood 12/22/2024 9:55 AM CDT 12/22/2024 10:48 AM CDT Noemy Flores MD LAB BLOOD ORDERABLES Fin al Result BRIA [facility] (OTOE) 1 [facility] [place] [address] * Hemoglobin A1c (12/22/2024 9:55 AM CDT) Hgb A1C 4.7 4.0 - 5.6 % Estimated Average Glucose 88 mg/dL BRIA MALIK ([place]) Comment: The ADA recommends reporting an estimated Average Glucose (eAG) with all Hemoglobin A1c results using the equation derived from a study of 507 normal and diabetic adults. Minority populations were underrepresented and children were not included. (Diabetes Care 31:8577-7971, 2008). The eAG is not equivalent to a fasting glucose. Blood 12/22/2024 9:55 AM CDT 12/22/2024 10:48 AM CDT us Noemy Flores MD LAB BLOOD ORDERABLES Fin al Result Performing Organization Address [facility]/ZIP Co de Phone Number [facility] (OTOE) 1 [facility] [place] [address] * Hepatitis C antibody (01/19/2021 11:50 AM CDT) Hep C Ab Nonreactive Nonreactive [facility] (OTOE) Comment: Interpretive Data Nonreactive: Antibodies to HCV [...] last revised on 2019. Testing performed by: [facility], [address] [place] [address], [place]., [address] Blood specimen (specimen) 01/19/2021 11:50 AM CDT 01/20/2021 12:10 PM CDT us Rachel Lorenz DO LAB MICROBIOLOGY - GENERAL ORDERABLES Final Result Performing Organization Address [facility] Co de Phone Number [facility] (OTOE) 1 [facility] [place] [address] * PAP SMEAR WITH HPV (10/30/2017) us Historical Provider HEALTH MAINTENANCE Final Result from Last 3 Months or Most Recently Relevant to Health Maintenance Insurance Fullscreen OOS Fullscreen OOS [facility] H[facility]PPO Address: [facility] [address] [place] [address] Advance Directives For more information, please contact: [phone] * Full Code (Latest Code Status on File) Date Activated Date Inactivated Comments 12/15/2018 3:44 AM 12/18/2018 8:20 PM Care Teams Commercial Real Estate Attorney Relationship Specialty Start Date End Date J Carlos Araujo MD 2 [facility] [address] [address] PCP - General Family Medicine 08/06/23 Collin Taylor MD Consulting Physician Hematology and Oncology 09/26/21
--- OUTSIDE RECORDS SUMMARY | 2025-03-07 11:14 | XMS_ITS | Data Portability ---
Author Organization AYAD Silvio RANDALL Address [address] [place] [address] Care Team Providers Care Boring Mill Set Up Operator Vertical Name Role Phone MITALI MARK Security Flex Utility Officer Assessment Encounter Date Assessment Date Assessment LastModified [...] 06/17/2016 15:37:17 07/22/2016 07/22/2016 Had c/s at [facility] due to being anticoagulated ( Hx of pulmonary embolus) Baby was 10'15 exam today normal - condoms for contraception Not available 07/22/2016 16:36:07 Plan of Treatment Reminders Order Date Submit Date Provider Last Modified By Organization Details Last Modified Time Details Appointments None recorded. Lab pap, LB + reflex to HR HPV if ASC-U - broom 2015 016 SILVERIO [facility], [address], [place], [address], 6 11:13:37 streptococc us group B, culture, unspecified specimen 2015 016 [email or web address] [facility], [address] [facility] [address], [address], [place], [address], 6 09:24:20 Referral None recorded. Procedures None [...] 5.9 below low normal Not Available [facility] ([facility]) [address] [place], [address], 03/26/2016 08:28:11 03/25/20 16 03/26/2016 hemog lobin + hemat ocrit , blood hematocrit 32.1 % 34.0-4 6.6 below low normal Not Available [facility] ([facility]) [address] [place], [address], 03/26/2016 08:28:11 03/25/20 16 03/26/2016 RPR (rapi d plasm a reagi n), serum RPR NON REACTI VE non reacti ve Not Available [facility] ([facility]) [address] [place], [address], 03/26/2016 08:28:12 03/25/20 16 03/26/2016 gluco se [...] OF >129 MG/DL . Not Available [facility] ([facility]) [address] [place], [address], 03/26/2016 08:28:12 03/25/20 16 03/26/2016 antib nico scree n, serum or plasm a antibody screen NEGATI VE negati ve Not Available [facility] ([facility]) [address] [place], [address], 03/26/2016 08:28:12 03/29/20 16 03/29/2016 gluco se kellee ance test, 4 speci mens note: COMMEN T FOR DIAGN OSIS OF GESTA CHOLO L DIABE IWONA, AT LEAST TWO VALUE S MUST MEET OR EXCEE D DEL L LIMIT S, WHICH IS BASED ON 100 GM OF ORAL GLUCO SE CHALL ENGE. Not Available [facility] ([facility]) [address] [place], [address], 03/30/2016 06:15:11 03/29/20 16 03/30/2016 gluco se kellee ance test, 4 speci mens glucose - fasting 82 mg/dL 65-94 Not Available [facility] ([facility]) [address] [place], [address], 03/30/2016 06:15:11 03/29/2003/30/2016 gluco se kellee ance test, 4 speci mens glucose - 1 hour 153 mg/dL 65-179 Not Available [facility] ([facility]) [address] [place], [address], 03/30/2016 06:15:11 03/29/20 16 03/30/2016 gluco se kellee ance test, 4 speci mens glucose - 2 hour 131 mg/dL 65-154 Not Available [facility] ([facility]) [address] [facility] [place], [address], 03/30/2016 06:15:11 03/29/20 16 03/30/2016 gluco se kellee ance test, 4 speci mens glucose - 3 hour 112 mg/dL 65-139 Not Available [facility] ([facility]) [address] [facility], [place], [address], 03/30/2016 06:15:11 05/13/20 16 05/15/2016 cultu re, vagin al/re ctal, strep tococ cus group B strep gp B PAUL POSITI VE negati ve abnormal CENTE RS FOR DISEA SE CONTR OL AND PREVE NTION ([facility]) AND AMERI CAN CONGR ESS OF OBSTE TRICI ANS AND GYNEC OLOGI STS (ACOG ) GUIDE LINES FOR PREVE NTION OF PERIN ATAL GROUP B STREP TOCOC CRICKET (GBS) DISEA SE SPECI FY CO-CO LLECT ION OF A VAGIN AL AND RECTA L SWAB SPECI MEN TO MAXIM IZE SENSI TIVIT Y OF GBS DETEC TION. PER THE [facility] AND ACOG, SWABB ING BOTH THE LOWER [...] N IS NOTED . Not Available [facility] ([facility]) [address] [facility], [place], [address], 05/15/2016 15:13:38 07/22/20 16 07/25/2016 pap, IG + refle x HPV if ASC-U diagnosis: COMMEN T NEGAT NOELLE FOR INTRA EPITH ELIAL LESIO N AND DONALD RAY . CELLU TOMASA CALDWELL ES ASSOC IATED WITH INFLA MMATI ON ARE PRESE NT. Not Available [facility] ([facility]) [address] [place], [address], 07/25/2016 11:13:37 07/22/20 16 07/25/2016 pap, IG + refle x HPV if ASC-U specimen adequacy: COMMEN T SATIS FACTO RY FOR EVALU ATION . ENDOC ERVIC AL AND/O R SQUAM OUS METAP LASTI C CELLS (ENDO CERVI CRICKET COMPO NENT) ARE PRESE NT. Not Available [facility] ([facility]) [address] [place], [address], 07/25/2016 11:13:37 07/22/20 16 07/25/2016 pap, IG + refle x HPV if ASC-U clinician provided ICD10: LUPE T Z39.2 Not Available [facility] ([facility]) [address] [place], [address], 07/25/2016 11:13:37 07/22/20 16 07/25/2016 pap, IG + refle x HPV if ASC-U performed by: LUPE T ISADORA OCONNOR, CYTOT LU VEGA T (ASCP ) Not Available [facility] ([facility]) [address] [place], [address], 07/25/2016 11:13:37 07/22/20 16 07/25/2016 pap, IG + refle x HPV if ASC-U . . Not Available [facility] ([facility]) [address] [place], [address], 07/25/2016 11:13:37 07/22/20 16 07/25/2016 pap, IG [...] TS DO OCCUR . Not Available [facility] ([facility]) [address] [facility], [place], [address], 07/25/2016 11:13:37 07/22/20 16 07/25/2016 pap, IG + refle x HPV if ASC-U test methodology: COMMEN T THIS LIQUI D BASED THINP REP(R ) PAP TEST WAS SCREE YESENIA WITH THE USE OF AN IMAGE GUIDE Gladys Mancera Not Available [facility] ([facility]) [address] [facility], [place], [address], 07/25/2016 11:13:37 07/22/20 16 07/25/2016 pap, IG + refle x HPV if ASC-U . COMMEN T THE HPV DNA REFLE X CRITE TURNER WERE NOT MET WITH THIS SPECI MEN RESUL T THERE FORE, NO HPV TESTI NG WAS PERFO RMED. Not Available [facility] ([facility]) [address] [facility], [place], [address], 07/25/2016 11:13:37 04/29/20 16 04/29/2016 ultra sound , surve y, OB mater nal eval No observ ation record ed. [facility] Security Flex Utility Officer [facility] [id number], [place], [address], 05/13/2016 15:56:14 05/20/20 16 05/20/2016 bioph ysica l profi le No observ ation record ed. [facility] Security Flex Utility Officer [facility] [address], [place], [address], 05/20/2016 17:24:03 05/27/20 16 05/27/2016 US, obste tric, bioph ysica l profi le No observ ation record ed. [email or web address] Not Available 2015 13:55:12 Result Notes None recorded. Problems Name Problem SNOMED Code Status Onset Date Resolution Date Notes Provider Name and Address Organization Details Recorded Time Threatened miscarriage 15152527 Active Lexis rogers MA null, [facility] 6 15:47:13 Glucose tolerance test during - baby not yet delivered outside reference range 365935551 Active Stacie Isrmichellehau sen null, [facility] 6 16:36:21 Glucose tolerance test during - baby not yet delivered outside reference range 091766357 Completed Stacie Isringhau sen null, [facility] 6 16:36:21 Wound seroma 422544831 Active Mitali Mark MD Attn: Melissa ma,[address] [facility], [place], [address], [facility] 6 15:37:17 Problem Notes None recorded. Procedures Surgical History Date Name Laterality Status Provider Name and Address Organization Details Recorded Time 11/25/2013 Date of Last Pap Smear completed Karen Quick RN [facility] 10/20/2015 16:22:12 09/29/2012 Other completed Karen Quick RN [facility] 10/20/2015 16:11:35 09/29/2008 Other completed Karen Quick RN [facility] 10/20/2015 16:22:11 Imaging Results None recorded. Procedure Notes None recorded. Medical Equipment None [...] Address Organization Details Last Updated DateTime 03/25/2016 410823.9 7805 g 167.64 cm 42.8 kg/m2 108 mm[Hg] 68 mm[Hg] Lexis rogers MA [facility] 6 11:06:47 Date Recorded Body height Body mass index (BMI) Body weight Diastolic blood pressure Provider Name and Address Organization Details Last Updated DateTime 04/22/2016 167.64 cm 43.7 kg/m2 548113.53 227 g 112 mm[Hg] Lexis Carrion MA [facility] 04/22/2016 14:47:36 Date Recorded Body height Body weight Body mass index (BMI) Systolic blood pressure Diastolic blood pressure Provider Name and Address Organization Details Last Updated DateTime 05/13/2016 167.64 cm 064317.0 8649 g 44.7 kg/m2 118 mm[Hg] 76 mm[Hg] Lexis rogers MA [facility] 6 15:53:10 Date Recorded Body height Body weight Body mass index (BMI) Systolic blood pressure Diastolic blood pressure Provider Name and Address Organization Details Last Updated DateTime 06/17/2016 167.64 cm 122928.8 3146 g 41.6 kg/m2 112 mm[Hg] 80 mm[Hg] Lexis rogers MA [facility] 6 15:07:45 Date Recorded Body height Body weight Body mass index (BMI) Systolic blood pressure Diastolic blood pressure Provider Name and Address Organization Details Last Updated DateTime 07/22/2016 167.64 cm 565941.3 2 g 39.9 kg/m2 105 mm[Hg] 72 mm[Hg] Lexis rogers MA [facility] 6 16:22:03 Social History Question Answer Notes LastModified by Organizat ion Details LastModified Time Tobacco Smoking Status Unknown If Ever Smoked Karen Quick RN null, [facility] 10/20/2015 16:22:12 Marital Status Single Informat ion not available 11/22/2015 How Many Children Do You Have? 1 [email or web address] Information not available 06/17/2016 Sex: Unknown Functional Status None recorded. Mental Status None recorded. Family History Nothing Reported Notes:no breast ca hx Medical History Condition Response Pulmonary Embolism Y High Cholesterol Y Gynecological History Statement/Question Response Abnormal Pap N Date of Last Pap Smear 11/25/2013 Current Control Method None LMP Definite Desired Control Method None Obstetrics History GPAL:G 1 P 1 0 0 1 Type Value Full Term 1 Living 1 Total 1 Past Encounters Encounter ID Performer Location Encounter Start Date Encounter Closed Date Diagnosis/Indication Diagnosis SNOMED-CT Code Diagnosis ICD10 Code Diagnosis Note [id number] MD Sukumar Lima ([place] [address]) [address] [place] [address] 11/22/2015 11:07:36 11/23/2015 11:40:05 Normal 13096070 Z34.91 Z34.90 [id number] MD Sukumar Lima ([place] [address]) [address] [place] [address] 12/22/2015 11:51:27 12/25/2015 17:21:03 Normal 86062900 Z34.91 Z34.90 History of pulmonary embolus 519552136 Z86.711 [id number] MD Sukumar Lima ([place] [address]) [address] [place] [address] 01/08/2016 12:26:24 01/08/2016 15:16:20 Normal 17430178 Z34.91 Z34.90 History of pulmonary embolus 175575428 Z86.711 [id number] MD Sukumar Lima ([place] [address]) [address] [place] [address] 02/12/2016 14:15:29 02/12/2016 16:02:03 Normal 24638758 Z34.91 Z34.90 History of pulmonary embolus 995794561 Z86.711 [id number] MD Sukumar Lima ([place] [address]) [address] [place] [address] 03/18/2016 16:15:17 03/19/2016 10:58:50 Normal 26412614 Z34.91 Z34.90 History of pulmonary embolus 161876329 Z86.711 [id number] MD Sukumar Lima ([place] [address]) [address] [place] [address] 03/25/2016 10:48:54 03/25/2016 13:05:20 Normal 04704659 Z34.91 Z34.90 History of pulmonary embolus 178465189 Z86.711 [id number] MD Sukumar Lima ([place] [address]) [address] [place] [address] 04/22/2016 14:40:03 04/22/2016 15:15:04 Normal 26408303 Z34.91 Z34.90 [id number] MD Sukumar Lima ([place] [address]) [address] [place] [address] 05/13/2016 15:33:43 05/14/2016 10:29:16 Normal 42754947 Z34.91 Z34.90 History of pulmonary embolus 956189879 Z86.711 [id number] MD Sukumar Lima ([place] [address]) [address] [place] [address] 06/17/2016 14:59:00 06/17/2016 15:39:14 Wound seroma 893397698 T88.8XXA [id number] MD Sukumar Lima ([place] [address]) [address] [place] [address] 07/22/2016 15:46:31 07/23/2016 11:08:42 care 860909084 Z39.2 History of pulmonary embolus 992817432 Z86.711 Health Concerns Section Related Observation LastModified by Organization Detai ls LastModified Time None Recorded Concern Status LastModified by Organization Details LastModified Time None Recorded Advance Directives Directive None Recorded Payers Encounter Date Sequence Insurance Name Policy Number Policy Price Covered Member ID Price Member ID Guarantor Name 03/25/2016 1 [facility] [place] [id number] Dinora Singh [id number] Dinora Galvangatz 04/22/2016 1 [place] [id number] Dinora Daleyz [id number] Dinora Fischer [place]arg[place] 05/13/2016 1 [place] [id number] Dinora Galvangatz [id number] Dinora Fischer [place]argatz 06/17/2016 1 [place] [id number] Dinora Fischer Dargatz [id number] 17 Dinora Fischer [place]argatz 07/22/2016 1 [place] [id number] Dinora Daleyz [id number] 17 Dinoralois Singh OBGyn Episode Ob Episode Information Episode Created Date Number of Fetuses Patient Bloodtype Patient rh Status Prepregnancy Weight lbs Domestic Partner Domestic Partner Phone Father Name Automotive Engineering Technician Status 11/22/19 16 1 A Positive CLOSED Fetus Data First Name Last Name Admitted to NICU Weight (g) Sex Living Outcome Pediatric Complications Fetus ID Race Codes Race Delivery Type Domenico tucker false 4961.16 25 M true Full Term [id number] 2106-3 White Problems Problem Notes Problem Name Start Date End Date Resolution Snomed Code Not e Glucose tolerance test durin g - baby not yet delivered outside reference range 097063205 Jose Calculation Initial Jose Date Initial Exam Date Initial Exam Provider Initial Ultrasound Date Last Menstrual Period Date Ultra Sound Weeks Gestation 06/14/2016 11/22/2015 12/25/2015 09/08/2015 15 Eighteen To Twenty Week Jsoe Update Ultra Sound Date Fundal Height At [...] Type Weight in lbs Pre/Post Dialysis Refused 236.849410198470 BP Diastolic BP Location Tested BP Systolic [...] Type Weight in lbs Pre/Post Dialysis Refused 239.21726075880 BP Diastolic BP Location Tested BP Systolic [...] Type Weight in lbs Pre/Post Dialysis Refused 239.194160468846 BP Diastolic BP Location Tested BP Systolic BP Type 76 102 sitting Fetus Heart Rate Present A 155 Present Fetus Movement Comments Discussed [facility] reccomendatio ns of delivery n [facility] due to anticoagulation. Will try to help out here as much as possible, but care has been shifted to [facility] Flowsheet Date 02/12/2016 [place]ina Score Blood Edema Fundus Height Fundus Units Glucose Ketones Leukocytes Nitrite Labor Signs Protein Cervic Dilation Cervic Effacement Cervic Station 22 cm Type Weight in lbs Pre/Post Dialysis Refused 250.496313371744 BP Diastolic BP Location Tested BP Systolic [...] Type Weight in lbs Pre/Post Dialysis Refused 263.652657461480 BP Diastolic BP Location Tested BP Systolic [...] SHe is not interested in delivering at [facility] and will be looking into other options Flowsheet Date 03/25/2016 Medina Score Blood Edema Fundus Height Fundus Units Glucose Ketones Leukocytes Nitrite Labor Signs Protein Cervic Dilation Cervic Effacement Cervic Station 28 cm none neg Type Weight in lbs Pre/Post Dialysis Refused 265.532520751341 BP Diastolic BP Location Tested BP Systolic [...] Type Weight in lbs Pre/Post Dialysis Refused 271.073272112196 BP Diastolic BP Location Tested BP Systolic BP Type 112 sitting Fetus Heart Rate Present A 146 Present Fetus Movement A Yes Comments doing well. [email or web address] next Friday Flowsheet Date 05/13/2016 Medina Score Blood Edema Fundus Height Fundus Units Glucose Ketones Leukocytes Nitrite Labor Signs Protein Cervic Dilation Cervic Effacement Cervic Station none 34 cm none neg Type Weight in lbs Pre/Post Dialysis Refused 277.014941750843 BP Diastolic BP Location Tested BP Systolic [...] Type Weight in lbs Pre/Post Dialysis Refused 258.084821815516 BP Diastolic BP Location Tested BP Systolic [...] arrest if dilatatio n (5cm) Del. @ [facility] Discharge Information Feeding Method Contraceptive Method Maternal HG B and HCT Levels Bottle
--- OUTSIDE RECORDS SUMMARY | 2025-03-07 11:14 | XMS_ITS | Referral Summary ---
Author Organization [facility] [address] [place] [address] Address [address] [place] [address] Care Team Providers Care Sales Solutions Representative Name Role Phone Collin Taylor MD Unavailable [phone] J Carlos Araujo MD Primary Care Provider [phone] Encounters Date Type Department Care Team Description 02/07/2025 9:05 AM CDT [address] [phone] 01/11/2025 3:45 PM CDT Office Visit [facility] [place] [address] [place] [phone] Ana Woodson, NASEEM Upper respiratory tract infection, unspecified type (Primary Dx) 12/22/2024 8:40 AM CDT [address] [phone] from Last 3 Months Allergies No known [...] 11/10/2023 Assessment & Plan (08/12/2024 10:23 AM RUG CUTTER): Wt Readings from Last 3 Encounters: 08/12/24 [...] bid Assessment & Plan (11/10/2023 10:43 AM RUG CUTTER): Wt Readings from Last 3 Encounters: 11/10/23 [...] 08/13/2021 Assessment & Plan (08/12/2024 10:24 AM RUG CUTTER): Discussed lifestyle modifications, diet and exercise. Routine blood work ordered/reviewed today. Yearly vision and dental examinations. Assessment & Plan (08/06/2023 11:58 AM RUG CUTTER): Discussed lifestyle modifications, diet and exercise. Routine blood work ordered/reviewed today. Yearly vision and dental examinations. Assessment & Plan (08/13/2021 8:27 AM RUG CUTTER): -Recommended: Healthy diet. Avoiding junk food/fast food. [...] own. Assessment & Plan (08/12/2024 10:23 AM RUG CUTTER): Stable at thsi time Stopped both lexapro and wellbutrin Assessment & Plan (03/04/2024 4:30 PM CDT): Stable at thsi time Continue lexapro 10 gm every day, wellbutrin 150 mg bid Assessment & Plan (12/15/2023 12:32 PM CDT): C/w lexapro 10 mg every day, continue wellbutrin 150 mg bid Stable otherwise Assessment & Plan (11/10/2023 10:42 AM RUG CUTTER): Stable with lexapro 10 mg every day, continue wellbutrin 150 mg bid Assessment & Plan (08/06/2023 11:43 AM RUG CUTTER): Not at goal Had no improvement with [...] months Assessment & Plan (08/12/2024 10:29 AM RUG CUTTER): Following with ob now as she is [...] hypercholesterolemia Assessment & Plan (08/12/2024 10:24 AM RUG CUTTER): Lab Results Component Value Date CHOL 244 [...] meds. Assessment & Plan (08/13/2021 8:27 AM RUG CUTTER): Lipid abnormalities are stable, reviewed previous lipid levels in [facility]. Pharmacotherapy as ordered. Order for lipid panel [...] day Assessment & Plan (11/10/2023 10:44 AM RUG CUTTER): Wt Readings from Last 3 Encounters: 11/10/23 [...] 10/16/2021. Assessment & Plan (10/17/2021 9:10 AM RUG CUTTER): Encouraged patient to treat symptoms or woiu-zlz-[id number] medications as appropriate. Increase water intake, rest, consider bland diet, advance as tolerated. Acute non-recurrent pansinusitis 10/17/2021 02/11/2022 Assessment & Plan (10/17/2021 9:10 AM RUG CUTTER): Trial oral steroids to help with sinus pressure and pain. Acute left-sided low back pa in with left-sided sciatica 09/11/2021 02/11/2022 Assessment & Plan (09/11/2021 1:54 PM RUG CUTTER): X-rays ordered of the lumbar spine. Trial of oral steroids given. Patient left without giving urine sample. Cervicalgia 08/13/2021 08/01/2022 Assessment & Plan (08/13/2021 8:28 AM RUG CUTTER): Neck pain has improved with Flexeril. Will renew Flexeril for p.r.n. use in case it flares again. Will also refer to physical therapy for stretching exercises and home exercise program Chronic bilateral low back p ain without sciatica 08/13/2021 09/10/2021 Assessment & Plan (08/13/2021 8:29 AM RUG CUTTER): States she periodically has low back pain [...] (01/19/2021): Assessment & Plan (08/06/2023 11:58 AM RUG CUTTER): Wt Readings from Last 3 Encounters: 08/06/23 [...] recommended. Assessment & Plan (10/17/2021 9:11 AM RUG CUTTER): Weight reduction, daily exercise and dietary modifications recommended, when able. Assessment & Plan (09/11/2021 1:54 PM RUG CUTTER): Weight reduction, daily exercise and dietary modifications [...] on file Legal Sex Female 11:56 PM RUG CUTTER Gender Identity Female 05/20/2021 3:10 PM CDT [...] 01/11/2025 3:50 PM CDT Plan of Treatment Not on file Procedures [...] LAB BLOOD ORDERABLES Fin al Result [facility] [place] [address] [facility] [place] [address] * GTT 100gm 2hr gestational diagnostic (02/07/2025 11:33 AM CDT) GTT 100g 2h gest 154 <=154 mg/dL Blood 02/07/2025 11:3 3 AM CDT 02/07/2025 12:41 PM CDT us Noemy Flores MD LAB BLOOD ORDERABLES Fin al Result [facility] 1 [facility] [place] [address] * GTT 100gm 1hr gestational diagnostic (02/07/2025 10:33 AM CDT) GTT 100g 1h gest 149 <=179 mg/dL Blood 02/07/2025 10:3 3 AM CDT 02/07/2025 10:44 AM CDT Noemy Flores MD LAB BLOOD ORDERABLES Fin al Result Performing Organization Address [facility] Co de Phone Number [facility] [place]) [address] [place] [address] * GTT 100gm fasting gestational diagnostic (02/07/2025 [...] mg/dL Reference Interval Info: Dyan Mckinley,et al. [place] Compared with National Diabetes Data Group Criteria for Diagnosing Gestational Diabetes. Obstetrics and Gynecology 2016:127 (5): 893-898. Diabetes Care 2020; 43(Suppl 1):S14-31 Current interpretive data was last revised 2020. Blood 02/07/2025 9:14 AM CDT 02/07/2025 9:16 AM CDT us Noemy Flores MD LAB BLOOD ORDERABLES Fin al Result Performing Organization Address [facility] Co de Phone Number [facility] ([place] 1 [facility] [place] [address] * (ABNORMAL) Hemoglobin and hematocrit (02/07/2025 9:14 AM CDT) Hgb 10.5(L) 11.9 - 15.5 g/dL Hct 32.4(L) 35.6 - 45.5 % [facility] ([place]) Blood 02/07/2025 9:14 AM CDT 02/07/2025 9:16 AM CDT Noemy Flores MD LAB BLOOD ORDERABLES Fin al Result [facility] ([place] [address] [facility] [place] [address] * RPR Blood (02/07/2025 9:14 AM CDT) RPR Nonreactive Nonreactive Comment:Testing performed by : [facility], [address] [place] [address], [address] Blood 02/07/2025 9:14 AM CDT 02/07/2025 11:43 AM CDT Noemy Flores MD LAB MICROBIOLOGY - GENER AL ORDERABLES Final Result Performing Organization Address [facility] de Phone Number [facility] ([place] [address] [facility] [place] [address] * GTT 50gm 1hr gestational screen (12/22/2024 9:55 AM CDT) GTT 50g gest screen 133 <=140 mg/dL [...] ORDERABLES Fin al Result Performing Organization Address [facility]/ZIP Co de Phone Number [facility] ([place]) 1 [facility] [place] [address] * HIV 1/2 Antibody plus p24 Antigen Blood (12/22/2024 9:55 AM CDT) [facility] HIV 1/2 ab + p24 ag Nonreactive Nonreactive Comment: Nonreactive for HIV-1 antigen and HIV-1/HIV-2 antibodies. No laboratory evidence of HIV infection. If acute HIV infection is suspected, consider testing for HIV-1 RNA. Testing performed by: [facility], [address] [place] [address], [place]., [address] Blood 12/22/2024 9:55 AM CDT 12/22/2024 4:12 PM CDT Noemy Flores MD LAB MICROBIOLOGY - GENER AL ORDERABLES Final Result [facility] ([place]) 1 [facility] [place] [address] * Vitamin D 25 hydroxy (12/22/2024 9:55 AM CDT) [facility] Vitamin D 25-OH 44 30 - 80 ng/mL Blood 12/22/2024 9:55 AM CDT 12/22/2024 10:48 AM CDT Noemy Flores MD LAB BLOOD ORDERABLES Fin al Result Performing Organization Address City/[facility] Co de Phone Number [facility] ([place]) [facility] [place] [address] * Hemoglobin A1c (12/22/2024 9:55 AM CDT) [facility] Hgb A1C 4.7 4.0 - 5.6 % Estimated Average Glucose 88 mg/dL [facility] ([place]) Comment: The ADA recommends reporting an estimated Average Glucose (eAG) with all Hemoglobin A1c results using the equation derived from a study of 507 normal and diabetic adults. Minority populations were underrepresented and children were not included. (Diabetes Care 31:6926-0863, 2008). The eAG is not equivalent to a fasting glucose. Blood 12/22/2024 9:55 AM CDT 12/22/2024 10:48 AM CDT us Noemy Flores MD LAB BLOOD ORDERABLES Fin al Result [facility] ([place]) 1 [facility] [place] [address] * Hepatitis C antibody (01/19/2021 11:50 AM CDT) Hep C Ab Nonreactive Nonreactive [facility] ([place]) Comment: Interpretive Data Nonreactive: Antibodies to HCV [...] last revised on 2019. Testing performed by: [facility], [address] [place] [address], [address] Blood specimen (specimen) 01/19/2021 11:50 AM CDT 01/20/2021 12:10 PM CDT us Rachel Lorenz DO LAB MICROBIOLOGY - GENERAL ORDERABLES Final Result Performing Organization Address [facility] Co de Phone Number [facility] ([place]) 1 [facility] [place] [address] * HM PAP SMEAR WITH HPV (10/30/2017) us Historical Provider HEALTH MAINTENANCE Final Result from Last 3 Months or Most Recently Relevant to Health Maintenance Insurance girnarsoft OOS girnarsoft OOS [facility] [facility] HMO/PPO Address: [address] [address] [place] [address] Advance Directives For more information, please contact: [phone] * Full Code (Latest Code Status on File) Date Activated Date Inactivated Comments 12/15/2018 3:44 AM 12/18/2018 8:20 PM Care Teams Sales Solutions Representative Relationship Specialty Start Date End Date J Carlos Araujo MD [address] [place] [address] PCP - General Family Medicine 08/06/23 Collin Taylor MD Consulting Physician Hematology and Oncology 09/26/21
--- OUTSIDE RECORDS SUMMARY | 2025-03-07 11:14 | XMS_ITS | Clinical Summary ---
Author Organization [facility] [address] Address [address] [place] [phone] Phone Care Team Providers Care Fruit Loader Machine Operator Name Role Phone Unavailable Primary Care Provider [...] Encounters Date Type Department Care Team Description 02/22/2025 External Device Data [facility] Provider, Abstract 02/16/2025 External Device Data [facility] Provider, Abstract 02/15/2025 External Device Data [facility] Provider, Abstract 01/11/2025 External Device Data [facility] Provider, Abstract 12/15/2024 External Device Data [facility] Provider, Abstract 12/15/2024 External Device Data [facility] Provider, Abstract 12/13/2024 12:54 PM CDT - 12/13/2024 11:59 PM CDT Hospital Encounter [facility] [address] [place] [phone] Kary Roberto MD Jackson, Daniel Lee, MD Discharge Disposition: Home or Self Care [...] 1:26 PM CDT Height 167.6 cm (5' 6) 06/17/2018 1:26 PM CDT Body Mass Index 40.35 06/17/2018 1:26 PM CDT Plan of Treatment Health Maintenance Due Date Last Done Comments Pre-Diabetes and Diabetes Screening 1986 HEPATITIS B VACCINES (1 of 3 - 19+ 3-dose series) 2005 HPV/Cotest (21-29) 2007 HPV/Cotest (30-65) 2016 CERVICAL CANCER SCREENING 07/22/2019 PAP SMEAR 07/22/2019 07/22/2016 INFLUENZA VACCINE (#1) 2024 , 06/29/2019, 06/14/2016 COVID-19 Vaccine ( season) 2024 10/04/2021, 01/22/2021, 01/01/2021 DTAP/TDAP/TD VACCINES (3 - Td or Tdap) 08/24/2033 08/24/2023, 05/20/2016 HPV VACCINES Aged Out No longer eligi ble based on patient's age to complete this topic Procedures Procedure Name Priority Date/Time Associated Diagnosis Comments US OB FOLLOW UP PER FETUS Routine 12/13/2024 1:14 PM CDT Advanced maternal age in multigravida, second trimester from Last 3 Months Results * US OB FOLLOW UP PER FETUS (12/13/2024 1:14 PM CDT) Anatomical Region Laterality Modality Pelvis Ultrasound 12/13/2024 12:5 7 PM CDT Narrative 12/13/2024 1:15 PM CDT [facility] ----- Pat. Name: NITA SINGH Study Date: 12/13/2024 12:57pm Pat. NO: [id number] Referring MD: YURY BARKLEY MD Site: [facility] [employer] Sales Representative: Chuyita Benedict RDMS : 1985 Age: 39 ----- INDICATION ----- Advanced Maternal Age (AMA), Multigravida Screening Follow-Up CODING ----- Diagnoses Z3A.26: Weeks of gestation O09.522: Supervision of boone reaavilorenza Z36.2: Encounter for other screening follow-up Procedures 32162: Ultrasound, uterus, real time with image documentation, follow up, transabdominal approach per fetus HISTORY ----- OB History 2. Para 1 METHOD ----- Transabdominal ultrasound examination ----- Infante . Number of fetuses: 1 DATING ----- GA by prior assessment 26 w + 6 d UVALDO by prior assessment: 03/15/2025 Method of dating: Restore dating from previous exam Assigned: based on stated UVALDO, selected on 11/01/2024 Assigned GA 26 w + 6 d Assigned UVALDO: 03/15/2025 GENERAL EVALUATION ----- Cardiac activity present. FHR 146 bpm. movements: present. Presentation: transverse Placenta: Placental site: posterior Umbilical cord: Cord vessels: 3 vessel cord. Insertion site: placental insertion: normal Amniotic fluid: Amount of AF: normal amount. MVP 5.8 cm. FARRUKH 20.9 cm. Q1 5.5 cm, Q2 5.8 cm, Q3 5.7 cm, Q4 3.9 cm ANATOMY ----- The following structures appear normal: Heart / Thorax Ductal arch view. Cardiac rhythm. Abdomen Stomach. Bladder. GROWTH OVERVIEW ----- Exam date GA BPD (mm) HC (mm) AC (mm) FL (mm) HL (mm) EFW (g) 11/01/2024 20w 6d 49.6 56% 182.3 30% 165.4 67% 32.2 16% 32.4 47% 382 44% 11/29/2024 24w 6d 62.9 65% 236.1 59% 214.3 74% 42.2 10% 770 51% COMMENT ----- Patient's name and date of were verified by the supervisor boilermaking shop prior to the exam IMPRESSION ----- Impression: Infante viable intrauterine at 26w 6d in transverse presentation. Amniotic fluid volume is normal amount, (Amniotic fluid index = 20.9 cm, maximum vertical pocket = 5.8 cm). No major malformations identified within the limitations of ultrasound. Anatomic views are complete: DA. Recommendation: Follow up as clinically indicated. Third trimester ultrasound for growth and anatomy review around 32-34 weeks. Thank you for inviting us to participate in your patient's care Procedure Note Amada Whitlock MD - 12/13/2024 [facility] ----- Pat. Name:Kali SINGH Date:12/13/2024 12:57pm Pat. NO: [id number] MD:YURY BARKLEY [facility]Chuyita Benedict RDMS :1985Age:39 ----- INDICATION ----- Advanced Maternal Age (AMA), Multigravida Screening Follow-Up CODING ----- Diagnoses Z3A.26: Weeks of gestation O09.522: Supervision of elderly multigravida Z36.2: Encounter for other screeningfollow-up Procedures 18694: Ultrasound, uterus, real time withimage documentation, follow up, transabdominal approach per fetus HISTORY ----- OB History 2. Para 1 METHOD ----- Transabdominal ultrasound examination ----- Infante . Number of fetuses: 1 DATING ----- GA by prior [id number] w + 6 d UVALDO by prior assessment:03/15/2025 Method of dating:Restore dating from previous exam Assigned:based on stated UVALDO, selected on 11/01/2024 Assigned GA26 w + 6 d Assigned UVALDO:03/15/2025 GENERAL EVALUATION ----- Cardiac activity present. FHR 146 bpm. movements: present.Presentation: transverse Placenta: Placental site: posterior Umbilical cord: Cord vessels: 3 vessel cord. Insertion site: placentalinsertion: normal Amniotic fluid: Amount of AF: normal amount. MVP 5.8 cm. FARRUKH 20.9 cm. Q15.5 cm, Q2 5.8 cm, Q3 5.7 cm, Q4 3.9 cm ANATOMY ----- The following structures appear normal: Heart / Thorax Ductal arch view. Cardiac rhythm. Abdomen Stomach. Bladder. GROWTH OVERVIEW ----- Exam date GA BPD (mm) HC (mm) AC (mm) FL(mm) HL (mm) EFW (g) 11/01/2024 20w 6d 49.6 56% 182.3 30% 165.4 67%32.2 16% 32.4 47% 382 44% 11/29/2024 24w 6d 62.9 65% 236.1 59% 214.3 74%42.2 10% 770 51% COMMENT ----- Patient's name and date of were verified by the supervisor boilermaking shop prior tothe exam IMPRESSION ----- Impression: Infante viable intrauterine at 26w 6d in transversepresentation. Amniotic fluid volume is normal amount, (Amniotic fluid index = 20.9 cm,maximum vertical pocket = 5.8 cm). No major malformations identified within the limitations of ultrasound. Anatomic views are complete: DA. Recommendation: Follow up as clinically indicated. Third trimester ultrasound for growth and anatomy review around 32-34weeks. Thank you for inviting us to participate in your patient's care us Kary Roberto MD US ORDERABLES Final Result from Last 3 Months Insurance [facility] [id number] Member Subscriber Plan / Payer (Ef fective 2023-Present) Name:Nita Singh Relation to Subscriber:Self Name:Nita Singh Payer ID:[id number] (NAIC) Group ID:Not on file Type:HMO Address: [facility] [id number] [place] [id number]
--- OUTSIDE RECORDS SUMMARY | 2025-03-07 11:14 | XMS_ITS | Clinical Summary ---
Author Organization [facility] [employer] Address [address] [place] [address] Care Team Providers Care Associate Professor Of Education Name Role Phone Rachel Lorenz DO Primary Care Provider Source Comments [facility],non-owned Affiliates and Associated Physician Practices is amultiple site organization consisting of ambulatory clinics and hospital sitesin [place], [place], [place] and [place]. This disclosure is being madepursuant to the Care Everywhere program and may not contain all information available regarding this patient. Last updated 18.[facility] [employer] Social History Tobacco Use Types Packs/Day Years Used Date Smoking Tobacco: Never Assessed Comments Unknown Sex and Gender Information Value Date Recorded Sex Assigned at Not on file Legal Sex Female 12:58 PM SYSTEMS TEST TECHNICIAN Gender Identity Not on file Sexual Orientation Not on file Plan of Treatment Health Maintenance Due Date Last Done Comments PAP SMEAR 1985 HIV SCREENING 2001 HEPATITIS C SCREENING 08/21/2004 DTAP/TDAP/TD VACCINES (1 - Tdap) 2005 HEPATITIS B VACCINE (1 of 3 - 19+ 3-dose series) 2005 COVID-19 VACCINE ( - season) 2024 10/04/2021, 01/22/2021, 01/01/2021 DEPRESSION SCREENING 09/29/2024 INFLUENZA VACCINE (Season Ended) 2025 06/14/2022, 06/26/2021, 06/29/2019, Additional history exists ZOSTER VACCINE (1 of 2) 2036 HIB [...] on patient's age to complete this topic Insurance ANTHEM Care Teams Associate Professor Of Education Relationship Specialty Start Date End Date Rachel Lorenz DO [address] [place] [phone] PCP - General Family Medicine 01/13/23
--- OUTSIDE RECORDS SUMMARY | 2025-03-07 11:14 | XMS_ITS | Data Portability ---
Author Organization [place] [facility] Address # [address] [place] [address] Assessment No assessment recorded. Plan of Treatment [...] mcg/0.3 mL dose 10/04/2021 completed Johana Kaye [place], [place] - [facility], 10/04/2021 16:59:30 Past Encounters Encounter ID Performer Location Encounter Start Date Encounter Closed Date Diagnosis/Indication Diagnosis SNOMED-CT Code Diagnosis ICD10 Code Diagnosis Note [id number] [facility] Silva [facility] [address] [place] [address],[facility] [address] [place] [address] 10/04/2021 16:34:18 10/09/2021 12:09:25 Active immunization [id number] Z23 Health Concerns Section Related Observation LastModified by Organization Detai ls LastModified Time None Recorded Concern Status LastModified by Organization Details LastModified Time None Recorded Advance Directives Directive None Recorded Payers Encounter Date Sequence Insurance Name Policy Number Policy Price Covered Member ID Price Member ID Guarantor Name 10/04/2021 1 [employer] [id number] Dinora Singh [id number] Dinora Singh OBGyn Episode No OBEpisode recorded.
[2025-03-07 11:51] LABS: Syphilis IgG/IgM Antibody Non-Reactive (Nonreactive)
== END 2025-03-07 10:08 | disposition home or self-care (01) ==
LOC: ANHLAB 10:09
PROVIDERS: PCP Family Medicine; Visit Provider Obstetrics & Gynecology Gynecology
DX: Z01.812 Encounter for preprocedural laboratory examination (principal)
CPT/HCPCS: 36415; 85027; 86593; 86850; 86900; 86901

== ENCOUNTER 2025-03-08 05:25 | Inpatient (IN) | payer OTHER, SELFPAY ==
[2025-03-08] VITALS (40 sets, daily range): BP systolic 72–126; BP diastolic 29–75; PULSE 62–131; RESP 11–20; TEMP 36.4–37; O2SAT 98–100; BMI 43.4
--- OUTSIDE RECORDS SUMMARY | 2025-03-08 05:30 | XMS_ITS | Referral Summary ---
Author Organization [facility] [address] [place] [address] Address [address] [place] [address] Care Team Providers Care Stocking And Box Shop Supervisor Name Role Phone Collin [place] MD Unavailable [phone] J Carlos Araujo MD Primary Care Provider [phone] Encounters Date Type Department Care Team Description 02/07/2025 9:05 AM CDT [address] [address] 01/11/2025 3:45 PM CDT Office Visit [facility] [place] [address] [place] [phone] Ana Woodson, NASEEM Upper respiratory tract infection, unspecified type (Primary Dx) 12/22/2024 8:40 AM CDT [address] [address] from Last 3 Months Allergies No known [...] 11/10/2023 Assessment & Plan (08/12/2024 10:23 AM CELL PHONE REPAIR TECHNICIAN): Wt Readings from Last 3 Encounters: 08/12/24 [...] bid Assessment & Plan (11/10/2023 10:43 AM CELL PHONE REPAIR TECHNICIAN): Wt Readings from Last 3 Encounters: 11/10/23 [...] 08/13/2021 Assessment & Plan (08/12/2024 10:24 AM CELL PHONE REPAIR TECHNICIAN): Discussed lifestyle modifications, diet and exercise. Routine blood work ordered/reviewed today. Yearly vision and dental examinations. Assessment & Plan (08/06/2023 11:58 AM CELL PHONE REPAIR TECHNICIAN): Discussed lifestyle modifications, diet and exercise. Routine blood work ordered/reviewed today. Yearly vision and dental examinations. Assessment & Plan (08/13/2021 8:27 AM CELL PHONE REPAIR TECHNICIAN): -Recommended: Healthy diet. Avoiding junk food/fast food. [...] own. Assessment & Plan (08/12/2024 10:23 AM CELL PHONE REPAIR TECHNICIAN): Stable at thsi time Stopped both lexapro and wellbutrin Assessment & Plan (03/04/2024 4:30 PM CDT): Stable at thsi time Continue lexapro 10 gm every day, wellbutrin 150 mg bid Assessment & Plan (12/15/2023 12:32 PM CDT): C/w lexapro 10 mg every day, continue wellbutrin 150 mg bid Stable otherwise Assessment & Plan (11/10/2023 10:42 AM CELL PHONE REPAIR TECHNICIAN): Stable with lexapro 10 mg every day, continue wellbutrin 150 mg bid Assessment & Plan (08/06/2023 11:43 AM CELL PHONE REPAIR TECHNICIAN): Not at goal Had no improvement with [...] months Assessment & Plan (08/12/2024 10:29 AM CELL PHONE REPAIR TECHNICIAN): Following with ob now as she is [...] hypercholesterolemia Assessment & Plan (08/12/2024 10:24 AM CELL PHONE REPAIR TECHNICIAN): Lab Results Component Value Date CHOL 244 [...] meds. Assessment & Plan (08/13/2021 8:27 AM CELL PHONE REPAIR TECHNICIAN): Lipid abnormalities are stable, reviewed previous lipid levels in [facility]. Pharmacotherapy as ordered. Order for [...] day Assessment & Plan (11/10/2023 10:44 AM CELL PHONE REPAIR TECHNICIAN): Wt Readings from Last 3 Encounters: 11/10/23 [...] 10/16/2021. Assessment & Plan (10/17/2021 9:10 AM CELL PHONE REPAIR TECHNICIAN): Encouraged patient to treat symptoms or fomn-gmp-uwqaevv medications as appropriate. Increase water intake, rest, consider bland diet, advance as tolerated. Acute non-recurrent pansinusitis 10/17/2021 02/11/2022 Assessment & Plan (10/17/2021 9:10 AM CELL PHONE REPAIR TECHNICIAN): Trial oral steroids to help with sinus pressure and pain. Acute left-sided low back pa in with left-sided sciatica 09/11/2021 02/11/2022 Assessment & Plan (09/11/2021 1:54 PM CELL PHONE REPAIR TECHNICIAN): X-rays ordered of the lumbar spine. Trial of oral steroids given. Patient left without giving urine sample. Cervicalgia 08/13/2021 08/01/2022 Assessment & Plan (08/13/2021 8:28 AM CELL PHONE REPAIR TECHNICIAN): Neck pain has improved with Flexeril. Will renew Flexeril for p.r.n. use in case it flares again. Will also refer to physical therapy for stretching exercises and home exercise program Chronic bilateral low back p ain without sciatica 08/13/2021 09/10/2021 Assessment & Plan (08/13/2021 8:29 AM CELL PHONE REPAIR TECHNICIAN): States she periodically has low back pain [...] (01/19/2021): Assessment & Plan (08/06/2023 11:58 AM CELL PHONE REPAIR TECHNICIAN): Wt Readings from Last 3 Encounters: 08/06/23 [...] recommended. Assessment & Plan (10/17/2021 9:11 AM CELL PHONE REPAIR TECHNICIAN): Weight reduction, daily exercise and dietary modifications recommended, when able. Assessment & Plan (09/11/2021 1:54 PM CELL PHONE REPAIR TECHNICIAN): Weight reduction, daily exercise and dietary modifications [...] on file Legal Sex Female 11:56 PM CELL PHONE REPAIR TECHNICIAN Gender Identity Female 05/20/2021 3:10 PM CDT [...] BLOOD ORDERABLES Fin al Result BRIA [facility] [place]) 1 [facility] [place] [address] * GTT 100gm 2hr gestational diagnostic (02/07/2025 11:33 AM CDT) GTT 100g 2h gest 154 <=154 mg/dL Blood 02/07/2025 11:3 3 AM CDT 02/07/2025 12:41 PM CDT us Noemy Flores MD LAB BLOOD ORDERABLES Fin al Result B[facility]A [facility] ([place]) 1 [facility] [place] [address] * GTT 100gm 1hr gestational diagnostic (02/07/2025 10:33 AM CDT) GTT 100g 1h gest 149 <=179 mg/dL Blood 02/07/2025 10:3 3 AM CDT 02/07/2025 10:44 AM CDT Noemy Flores MD LAB BLOOD ORDERABLES Fin al Result Performing Organization Address [facility] Co de Phone Number BRIA MALIK [place]) 1 [place] [address] * GTT 100gm fasting gestational diagnostic (02/07/2025 [...] ORDERABLES Fin al Result Performing Organization Address [facility] Co de Phone Number BRIA MALIK ([place]) 1 [facility] [place] [address] * (ABNORMAL) Hemoglobin and hematocrit (02/07/2025 9:14 AM CDT) Hgb 10.5(L) 11.9 - 15.5 g/dL Hct 32.4(L) 35.6 - 45.5 % [facility] ([place]) Blood 02/07/2025 9:14 AM CDT 02/07/2025 9:16 AM CDT Noemy Flores MD LAB BLOOD ORDERABLES Fin al Result BRIA MALIK ([place]) 1 [facility] [place] [address] * RPR Blood (02/07/2025 9:14 AM CDT) RPR Nonreactive Nonreactive Comment:Testing performed by : [facility], [address] [place] [address], [address] Blood 02/07/2025 9:14 AM CDT 02/07/2025 11:43 AM CDT Noemy Flores MD LAB MICROBIOLOGY - GENER AL ORDERABLES Final Result Performing Organization Address [facility] de Phone Number BRIA MALIK ([place]) 1 [facility] [place] [address] * GTT 50gm 1hr gestational screen (12/22/2024 [...] ORDERABLES Fin al Result Performing Organization Address [facility]/ZIP Co de Phone Number BRIA MALIK ([place]) 1 [facility] [place] [address] * HIV 1/2 Antibody plus p24 Antigen Blood (12/22/2024 9:55 AM CDT) [facility] HIV 1/2 ab + p24 ag Nonreactive Nonreactive Comment: Nonreactive for HIV-1 antigen and HIV-1/HIV-2 antibodies. No laboratory evidence of HIV infection. If acute HIV infection is suspected, consider testing for HIV-1 RNA. Testing performed by: [facility], [address] [place] [address], [place]., [address] Blood 12/22/2024 9:55 AM CDT 12/22/2024 4:12 PM CDT Noemy Flores MD LAB MICROBIOLOGY - GENER AL ORDERABLES Final Result ABIDAMELO MALIK ([place]) 1 [facility] [place] [address] * Vitamin D 25 hydroxy (12/22/2024 9:55 AM CDT) [facility] Vitamin D 25-OH 44 30 - 80 ng/mL Blood 12/22/2024 9:55 AM CDT 12/22/2024 10:48 AM CDT Noemy Flores MD LAB BLOOD ORDERABLES Fin al Result Performing Organization Address [facility] Co de Phone Number BRIA [facility] ([place]) [address] [facility] [place] [address] * Hemoglobin A1c (12/22/2024 9:55 AM CDT) [facility] Hgb A1C 4.7 4.0 - 5.6 % Estimated Average Glucose 88 mg/dL BRIA MALIK ([place]) Comment: The ADA recommends reporting an estimated Average Glucose (eAG) with all Hemoglobin A1c results using the equation derived from a study of 507 normal and diabetic adults. Minority populations were underrepresented and children were not included. (Diabetes Care 31:0086-3405, 2008). The eAG is not equivalent to a fasting glucose. Blood 12/22/2024 9:55 AM CDT 12/22/2024 10:48 AM CDT us Noemy Flores MD LAB BLOOD ORDERABLES Fin al Result BRIA MALIK ([place]) 1 [facility] [place] [address] * Hepatitis C antibody (01/19/2021 11:50 AM CDT) Hep C Ab Nonreactive Nonreactive BRIA MALIK ([place]) Comment: Interpretive Data Nonreactive: Antibodies to HCV [...] last revised on 2019. Testing performed by: [facility], [address] [place] [address], [address] Blood specimen (specimen) 01/19/2021 11:50 AM CDT 01/20/2021 12:10 PM CDT us Rachel Lorenz DO LAB MICROBIOLOGY - GENERAL ORDERABLES Final Result Performing Organization Address [facility] Co de Phone Number BRIA MALIK ([place]) 1 [facility] [place] [address] * HM PAP SMEAR WITH HPV (10/30/2017) us Historical Provider HEALTH MAINTENANCE Final Result from Last 3 Months or Most Recently Relevant to Health Maintenance Insurance [employer] OOS [employer] OOS CHOICE PLUS Advance Directives For more information, please contact: [phone] * Full Code (Latest Code Status on File) Date Activated Date Inactivated Comments 12/15/2018 3:44 AM 12/18/2018 8:20 PM Care Teams Stocking And Box Shop Supervisor Relationship Specialty Start Date End Date J Carlos Araujo MD [address] [place] [address] PCP - General Family Medicine 08/06/23 Collin [place] MD Consulting Physician Hematology and Oncology 09/26/21
--- OUTSIDE RECORDS SUMMARY | 2025-03-08 05:30 | XMS_ITS | Clinical Summary ---
Author Organization [facility] [address] Address [address] [place] [address] Care Team Providers Care Automotive Technician Name Role Phone Collin [place] MD Unavailable [phone] J Carlos Araujo MD Primary Care Provider [phone] Allergies No known active allergies Medications enoxaparin [...] 11/10/2023 Assessment & Plan (08/12/2024 10:23 AM CHARTER BUS DRIVER): Wt Readings from Last 3 Encounters: 08/12/24 [...] bid Assessment & Plan (11/10/2023 10:43 AM CHARTER BUS DRIVER): Wt Readings from Last 3 Encounters: 11/10/23 [...] 08/13/2021 Assessment & Plan (08/12/2024 10:24 AM CHARTER BUS DRIVER): Discussed lifestyle modifications, diet and exercise. Routine blood work ordered/reviewed today. Yearly vision and dental examinations. Assessment & Plan (08/06/2023 11:58 AM CHARTER BUS DRIVER): Discussed lifestyle modifications, diet and exercise. Routine blood work ordered/reviewed today. Yearly vision and dental examinations. Assessment & Plan (08/13/2021 8:27 AM CHARTER BUS DRIVER): -Recommended: Healthy diet. Avoiding junk food/fast food. [...] own. Assessment & Plan (08/12/2024 10:23 AM CHARTER BUS DRIVER): Stable at thsi time Stopped both lexapro and wellbutrin Assessment & Plan (03/04/2024 4:30 PM CDT): Stable at thsi time Continue lexapro 10 gm every day, wellbutrin 150 mg bid Assessment & Plan (12/15/2023 12:32 PM CDT): C/w lexapro 10 mg every day, continue wellbutrin 150 mg bid Stable otherwise Assessment & Plan (11/10/2023 10:42 AM CHARTER BUS DRIVER): Stable with lexapro 10 mg every day, continue wellbutrin 150 mg bid Assessment & Plan (08/06/2023 11:43 AM CHARTER BUS DRIVER): Not at goal Had no improvement with [...] months Assessment & Plan (08/12/2024 10:29 AM CHARTER BUS DRIVER): Following with ob now as she is [...] hypercholesterolemia Assessment & Plan (08/12/2024 10:24 AM CHARTER BUS DRIVER): Lab Results Component Value Date CHOL 244 [...] meds. Assessment & Plan (08/13/2021 8:27 AM CHARTER BUS DRIVER): Lipid abnormalities are stable, reviewed previous lipid levels in [facility]. Pharmacotherapy as ordered. Order for lipid [...] day Assessment & Plan (11/10/2023 10:44 AM CHARTER BUS DRIVER): Wt Readings from Last 3 Encounters: 11/10/23 [...] 10/16/2021. Assessment & Plan (10/17/2021 9:10 AM CHARTER BUS DRIVER): Encouraged patient to treat symptoms or talp-zsu-twhrpxv medications as appropriate. Increase water intake, rest, consider bland diet, advance as tolerated. Acute non-recurrent pansinusitis 10/17/2021 02/11/2022 Assessment & Plan (10/17/2021 9:10 AM CHARTER BUS DRIVER): Trial oral steroids to help with sinus pressure and pain. Acute left-sided low back pa in with left-sided sciatica 09/11/2021 02/11/2022 Assessment & Plan (09/11/2021 1:54 PM CHARTER BUS DRIVER): X-rays ordered of the lumbar spine. Trial of oral steroids given. Patient left without giving urine sample. Cervicalgia 08/13/2021 08/01/2022 Assessment & Plan (08/13/2021 8:28 AM CHARTER BUS DRIVER): Neck pain has improved with Flexeril. Will renew Flexeril for p.r.n. use in case it flares again. Will also refer to physical therapy for stretching exercises and home exercise program Chronic bilateral low back p ain without sciatica 08/13/2021 09/10/2021 Assessment & Plan (08/13/2021 8:29 AM CHARTER BUS DRIVER): States she periodically has low back pain [...] (01/19/2021): Assessment & Plan (08/06/2023 11:58 AM CHARTER BUS DRIVER): Wt Readings from Last 3 Encounters: 08/06/23 [...] recommended. Assessment & Plan (10/17/2021 9:11 AM CHARTER BUS DRIVER): Weight reduction, daily exercise and dietary modifications recommended, when able. Assessment & Plan (09/11/2021 1:54 PM CHARTER BUS DRIVER): Weight reduction, daily exercise and dietary modifications recommended. Assessment & Plan (01/19/2021 11:54 AM CDT): Weight reduction, daily exercise and dietary modifications recommended. Acute cystitis without hematuria 01/19/2021 Encounters Date Type Department Care Team Description 02/07/2025 9:05 AM CDT [address] [place] [address] 01/11/2025 3:45 PM CDT Office Visit [facility] [place] [address] [place] [address] Ana Woodson NP Upper respiratory tract infection, unspecified type (Primary Dx) 12/22/2024 8:40 AM CDT Lab [address] [address] from Last 3 Months Immunizations Immunization Administration [...] on file Legal Sex Female 11:56 PM CHARTER BUS DRIVER Gender Identity Female 05/20/2021 3:10 PM CDT [...] BLOOD ORDERABLES Fin al Result BRIA MALIK [place]) 1 [facility] [place] [address] * GTT 100gm 2hr gestational diagnostic (02/07/2025 11:33 AM CDT) GTT 100g 2h gest 154 <=154 mg/dL Blood 02/07/2025 11:3 3 AM CDT 02/07/2025 12:41 PM CDT Noemy Flores MD LAB BLOOD ORDERABLES Fin al Result Performing Organization Address [facility] Co de Phone Number BRIA MALIK ([place]) 1 [facility] [place] [address] * GTT 100gm 1hr gestational diagnostic (02/07/2025 10:33 AM CDT) GTT 100g 1h gest 149 <=179 mg/dL Blood 02/07/2025 10:3 3 AM CDT 02/07/2025 10:44 AM CDT Noemy Flores MD LAB BLOOD ORDERABLES Fin al Result Performing Organization Address [facility] de Phone Number BRIA MALIK ([place]) [address] [place] [address] * GTT 100gm fasting gestational diagnostic (02/07/2025 [...] ORDERABLES Fin al Result Performing Organization Address [facility]/ZIP Co de Phone Number BRIA ArboledaSULPHUR) 1 [facility] [place] [address] * (ABNORMAL) Hemoglobin and hematocrit (02/07/2025 9:14 AM CDT) Pathologist [facility] Hgb 10.5(L) 11.9 - 15.5 g/dL Hct 32.4(L) 35.6 - 45.5 % BRIA MALIK ([place]) Blood 02/07/2025 9:14 AM CDT 02/07/2025 9:16 AM CDT us Noemy Flores MD LAB BLOOD ORDERABLES Fin al Result BRIA MALIK [place]) [address] [place] [address] * RPR Blood (02/07/2025 9:14 AM CDT) [facility] RPR Nonreactive Nonreactive Comment:Testing performed by : [facility], [address] [place] [address], [address] Blood 02/07/2025 9:14 AM CDT 02/07/2025 11:43 AM CDT us Noemy Flores MD LAB MICROBIOLOGY - GENER AL ORDERABLES Final Result Performing Organization Address City/[facility]/ZIP Co de Phone Number BRIA MALIK ([place]) 1 [facility] [place] [address] * GTT 50gm 1hr gestational screen (12/22/2024 9:55 AM CDT) Pathologist [facility] GTT 50g gest screen 133 <=140 mg/dL [...] ORDERABLES Fin al Result Performing Organization Address City/[facility]/ZIP Co de Phone Number BRIA [facility] ([place]) 1 [facility] [place] [address] * HIV 1/2 Antibody plus p24 Antigen Blood (12/22/2024 9:55 AM CDT) Pathologist [facility] HIV 1/2 ab + p24 ag Nonreactive Nonreactive Comment: Nonreactive for HIV-1 antigen and HIV-1/HIV-2 antibodies. No laboratory evidence of HIV infection. If acute HIV infection is suspected, consider testing for HIV-1 RNA. Testing performed by: [facility], [address] [place] [address], [facility] Blood 12/22/2024 9:55 AM CDT 12/22/2024 4:12 PM CDT us Noemy Flores MD LAB MICROBIOLOGY - GENER AL ORDERABLES Final Result Performing Organization Address [facility] Co de Phone Number BRIA [facility] ([place]) 1 [facility] [place] [address] * Vitamin D 25 hydroxy (12/22/2024 9:55 AM CDT) Pathologist [facility] Vitamin D 25-OH 44 30 - 80 ng/mL Blood 12/22/2024 9:55 AM CDT 12/22/2024 10:48 AM CDT Noemy Flores MD LAB BLOOD ORDERABLES Fin al Result BRIA [facility] ([place]) 1 [facility] [place] [address] * Hemoglobin A1c (12/22/2024 9:55 AM CDT) Hgb A1C 4.7 4.0 - 5.6 % Estimated Average Glucose 88 mg/dL BRIA MALIK ([place]) Comment: The ADA recommends reporting an estimated Average Glucose (eAG) with all Hemoglobin A1c results using the equation derived from a study of 507 normal and diabetic adults. Minority populations were underrepresented and children were not included. (Diabetes Care 31:9756-0481, 2008). The eAG is not equivalent to a fasting glucose. Blood 12/22/2024 9:55 AM CDT 12/22/2024 10:48 AM CDT us Noemy Flores MD LAB BLOOD ORDERABLES Fin al Result Performing Organization Address [facility]/ZIP Co de Phone Number [facility] ([place]) 1 [facility] [address] [place] [address] * Hepatitis C antibody (01/19/2021 11:50 AM CDT) Hep C Ab Nonreactive Nonreactive [facility] ([place]) Comment: Interpretive Data Nonreactive: Antibodies to HCV [...] last revised on 2019. Testing performed by: [facility], [address] [place] [address], [place]., [address] Blood specimen (specimen) 01/19/2021 11:50 AM CDT 01/20/2021 12:10 PM CDT us Rachel Lorenz DO LAB MICROBIOLOGY - GENERAL ORDERABLES Final Result Performing Organization Address [facility] Co de Phone Number [facility] ([place]) 1 [facility] [place] [address] * PAP SMEAR WITH HPV (10/30/2017) us Historical Provider HEALTH MAINTENANCE Final Result from Last 3 Months or Most Recently Relevant to Health Maintenance Insurance [employer] OOS [employer]OS [facility] CHOICE PLUS Advance Directives For more information, please contact: [phone] * Full Code (Latest Code Status on File) Date Activated Date Inactivated Comments 12/15/2018 3:44 AM 12/18/2018 8:20 PM Care Teams Automotive Technician Relationship Specialty Start Date End Date J Carlos Araujo MD 2 [facility] [address] [address] PCP - General Family Medicine 08/06/23 Collin [place] MD Consulting Physician Hematology and Oncology 09/26/21
--- OUTSIDE RECORDS SUMMARY | 2025-03-08 05:30 | XMS_ITS | Clinical Summary ---
Author Organization [email or web address] [address]22 [address] [place] [phone] Phone Care Team Providers Care Income Tax Auditor Name Role Phone Unavailable Primary Care Provider [...] - 12/13/2024 11:59 PM CDT Hospital Encounter [facility] [address] [place] [phone] Kary Roberto MD Jackson, Daniel Lee, [...] SINGH Study Date: 12/13/2024 12:57pm Pat. NO: [id number] Referring MD: YURY BARKLEY MD Site: [employer]ler: Chuyita Benedict RDMS : 1985 Age: 39 ----- INDICATION ----- Advanced Maternal Age (AMA), Multigravida Screening Follow-Up CODING ----- Diagnoses Z3A.26: Weeks of gestation O09.522: Supervision of boone reaavilorenza Z36.2: Encounter for other screening follow-up Procedures 97389: Ultrasound, uterus, real time with image documentation, [...] and date of were verified by the configuration manager prior to the exam IMPRESSION ----- Impression: [...] Pat. Name:Kali SINGH Date:12/13/2024 12:57pm Pat. NO: [id number] MD:YURY BARKLEY MD [facility]Chuyita Benedict RDMS :1985Age:39 ----- INDICATION ----- Advanced Maternal Age (AMA), Multigravida Screening Follow-Up CODING ----- Diagnoses Z3A.26: Weeks of gestation O09.522: Supervision of elderly multigravida Z36.2: Encounter for other screeningfollow-up Procedures 00180: Ultrasound, uterus, real time withimage documentation, follow up, transabdominal approach per fetus HISTORY ----- OB History 2. Para 1 METHOD ----- Transabdominal ultrasound examination ----- Infante . Number of fetuses: 1 DATING ----- GA by prior [id number] w + 6 d UVALDO by prior [...] and date of were verified by the configuration manager prior tothe exam IMPRESSION ----- Impression: Infante [...] Final Result from Last 3 Months Insurance [facility] [id number] Member Subscriber Plan / Payer (Ef fective 2023-Present) Name:Nita Singh Relation to Subscriber:Self Name:Nita Singh Payer ID:[id number] (NAIC) Group ID:Not on file Type:HMO Address: [facility] [id number] [place] [id number]
--- OUTSIDE RECORDS SUMMARY | 2025-03-08 05:30 | XMS_ITS | Clinical Summary ---
Author Organization [facility] Address [address] [place] [address] Care Team Providers Care Kitchen Hand Name Role Phone Rachel Lorenz DO Primary Care Provider [phone] Source Comments [facility],non-owned Affiliates and Associated Physician Practices is amultiple site organization consisting of ambulatory clinics and hospital sitesin [place], [place], [place] and [place]. This disclosure is being madepursuant to the Care Everywhere program and may not contain all information available regarding this patient. Last updated 18.[facility] Social History Tobacco Use Types Packs/Day Years Used Date Smoking Tobacco: Never Assessed Comments Unknown Sex and Gender Information Value Date Recorded Sex Assigned at Not on file Legal Sex Female 12:58 PM TECHNICAL SERVICES SPECIALIST Gender Identity Not on file Sexual Orientation [...] age to complete this topic Insurance [facility] Address: [facility] [id number] [place] [phone] Care Teams Kitchen Hand Relationship Specialty Start Date End Date Rachel Lorenz DO [address] [place] [id number] PCP - General Family Medicine 01/13/23
--- OUTSIDE RECORDS SUMMARY | 2025-03-08 05:30 | XMS_ITS | Clinical Summary ---
Author Organization [facility] Address [address] [place] [address] Phone Care Team Providers Care Inspector Name Role Phone Rachel Lorenz Primary Care Provider [phone] Allergies No known active allergies Medications Multiple [...] Master's degree (e.g., MA, MS, Renea, MEd, PANEL LAMINATOR, VIDAL) 03/24/2020 Sexually Active Control Partners Comments Yes Injection Male Estimated Date of Delivery Comme nts Yes 03/15/2025 Sex and Gender Information Value Date Recorded Sex Assigned at Not on file Legal Sex Female 8:35 PM CDT Gender Identity Not on file Sexual Orientation Not on file Last Filed Vital Signs Vital Sign Reading Time Taken Comments Blood Pressure 104/72 11/07/2024 9:08 AM FOUNDRY WORKER Pulse 122 11/07/2024 9:08 AM FOUNDRY WORKER Temperature 36.8 C (98.3 F) 11/07/2024 9:08 AM FOUNDRY WORKER Respiratory Rate 18 11/07/2024 9:08 AM FOUNDRY WORKER Oxygen Saturation 98% 11/07/2024 9:08 AM FOUNDRY WORKER Inhaled Oxygen Concentration - - Weight 105.7 kg (233 lb) 11/12/2022 5:39 PM FOUNDRY WORKER Height 167.6 cm (5' 6) 06/30/2020 8:32 [...] Type Associated Problems Recent Progress Patient-Stated? Author [facility] On track(2019 9:37 AM CDT) Yes Gay Fitzpatrick LCPC Note: Nita reported she desires to get some coping methods from counseling; to have reduction of depression symptoms. Goal Reviewed with: patient Readiness to change: Thinking about making a change Department associated with goal: [facility] Steps to achieve goal: [...] making a change Department associated with goal: [facility] Steps to achieve goal: 1. Nita will attend counseling/psychotherapy sessions at least twice monthly, utilizing sessions to express thoughts and feelings. 2. Nita will verbalize understanding of depression , ex: causes/contributing and risk factors, prevalence of conditions in the general population. Procedures Procedure Name Priority Date/Time Associated Diagnosis Comments PATHOLOGY CYTOLOGY CIGAR MAKING SUPERVISOR Routine 07/22/2016 from Last 3 Months or Most Recently Relevant to Health Maintenance Results * PATHOLOGY CYTOLOGY CIGAR MAKING SUPERVISOR (07/22/2016) Specimen of unknown material (specimen) us Oren Durham MD PATHOLOGY/CYTOLOGY ORD ERABLES Final Result from Last 3 Months or Most Recently Relevant to Health Maintenance Insurance [facility] Member Subscriber Plan / Payer (Ef fective 2023-Present) Name:Nita Singh Relation to Subscriber:Self Name:Georges Singhlois Fischer Payer ID:[id number] (NAIC) Type:Not on file Address: [facility] [id number] [place] [id number] Care Teams Inspector Relationship Specialty Start Date End Date Rachel Lorenz DO [address] [address] PCP - General Family Medicine 04/24/22
[2025-03-08] MEDS: ACETAMINOPHEN 500 MG TABLET 1000 MG PO (06:12)
[2025-03-08] MEDS: FAMOTIDINE 20 MG/2 ML VIAL IV PUSH (06:12)
[2025-03-08] MEDS: LACTATED RINGERS 1,000 ML 125 ML IV CONT ×2 (06:12→07:11)
[2025-03-08] MEDS: ONDANSETRON INJ 4 MG/2 ML VIAL IV PUSH ×2 (06:12→13:49)
--- NOTE | 2025-03-08 06:18 | LDADM ---
This patient, Dinora Singh, was admitted to Labor/Delivery/Recovery 120 on 03/08/25 at 05:25. Plans for labor, pain management and were discussed with patient. Patient/family oriented to hospital policies and general routines including ID bracelet, bed and alarms, visiting hours, pain management, procedures, bathroom and other care routines, personal items, smoking policy, room service/diet and guest tray routines, security routines, and visiting hours. Patient/Family are encouraged to report perceived risks to care and to ask questions if they do not understand what they are told or what they should do. See OBIX for further documentation.
--- NOTE | 2025-03-08 06:59 | WPDANESEPPF ---
Anes - Initial Pre Proc Eval Procedure: Operation Date: 03/08/25 07:30 Proposed Procedures p Repeat Section with Bilateral Salpingectomy, - Noemy Flores MD s Right Labia Cyst Removal - Noemy Flores MD Date/Time: 03/08/25 06:59 Surgeon: Noemy Flores MD Pre Op Diagnosis: Patient Data Age: 39 Gender: F Height: 1.68 m Weight: 122 kg Last Vital Signs Pulse 95 03/08/25 06:05 BP 120/67 03/08/25 06:05 O2 Del Method Room Air 03/08/25 06:18 Allergies Allergy/AdvReac Type Severity Reaction Status Date / Time No Known Allergies Allergy Verified 03/08/25 06:28 Home Medications ?Medication ?Instructions ?Recorded ?Confirmed ?Type multivitamin 1 tablet PO DAILY 05/15/20 03/08/25 History rivaroxaban 15 mg tablet (Xarelto) 15 mg PO BIDWM #40 tabs 05/16/20 03/04/25 Rx rivaroxaban 20 mg tablet (Xarelto) 20 mg PO DAILY@1700 #28 tabs 05/16/20 03/04/25 Rx heparin (porcine) 5,000 unit/mL (1 5,000 unit subcut Q12H 03/04/25 03/08/25 History mL) injection cartridge ergocalciferol (vitamin D2) 1,250 1,250 mcg PO 2XW 03/08/25 03/08/25 History mcg (50,000 unit) capsule (Vitamin D2) vit no.95-ferrous 1 tablet PO DAILY 03/08/25 03/08/25 History fumarate 28 mg-folic acid 800 mcg tablet () Laboratory Tests 03/08/25 06:02 HIV 1&2 Ab/P24 Ag 4thGn Pending Patient hx anesthesia problems: none Family hx anesthesia problems: none Results Review: All pre-operative results and documents have been reviewed as part of the pre-operative evaluation. [facility] Past Medical History Medical History Factor 5 Leiden mutation, heterozygous Pneumonia Pulmonary embolus Depression Surgical History Surgical History History of cholecystectomy History of x1 Family History Family History Grandparent Acute myocardial infarction Cerebrovascular accident Cancer of eye Diabetes mellitus Social History Social History Social History: the patient stated that she used to smoke other people cigarettes but did not find cigarettes on her home. She would just smoke socially and drinks socially. She stated that she would by cigarettes but is somebody else had a cigarette she would smoke it. She smoked marijuana in the past but not recently. Her is a durable power privacy attorney for healthcare. She works for [employer] She has 2 children. She desires to be a full code. Smoking status: Never smoker Tobacco type: cigarettes Second hand tobacco smoke exposure: No Additional smoking assessment comments: socially smoked about once a week for about 4 years Alcohol intake: current Drinks per week: 3 Substance use: never Substance use type: does not use Do You Feel Safe in your Home?: Yes Lack of Transportation: No Lack of Food: Never True Current Housing: I Have Housing Concerned About Future Housing: No Difficulty Paying Gas/Electric Bills: No Difficulty Paying for Meds: No Currently Unemployed: No Education: High School Diploma/GED Difficulty w/ Childcare or Family Care: No Gender identity (if verbalized by the patient): Female Spiritual care concerns: No Anes - Eval Final PreProcedure Day of Procedure 03/08/25 06:59 Patient weight: morbidly obese Heart: regular rate and rhythm Lungs: clear to auscultation Airway: Mallampati scale class 1 Neurological: alert and oriented Last oral intake: >/= 8 hours ASA classification: III Emergent: no Anesthetic plan: proceed Anesthesia type and monitoring: regional spinal and standard monitoring Results Review: All pre-operative results and documents have been reviewed as part of the pre-operative evaluation. Informed Consent: The patient's anesthetic plan and its attendant risks and benefits were discussed with the patient/family/POA. Questions were solicited and answers provided to the satisfaction of the patient/family/POA.
[2025-03-08 07:00] LABS: HIV 1/2 Ab P24 Ag Result Negative (Negative)
--- NOTE | 2025-03-08 07:08 | WPDHPUPDATE1 ---
History and Physical Update Update Date/Time: 03/08/25 07:08 History and Physical has been reviewed, including an updated exam of the patient. There are NO changes in the patient's condition. Risks, benefits, and alternatives have been discussed and questions answered. Patient agrees to proceed with procedure.
--- NOTE | 2025-03-08 07:08 | PM.IMHP ---
H&P: HPI History of Present Illness Date/Time: 03/08/25 07:08 Chief Complaint: Intrauterine at 39 weeks Repeat Requests sterilization Right labial cyst Narrative: The patient is a 39-year-old 3 para 2 being ended at 39 weeks for repeat section and bilateral salpingectomy. In addition the patient has a right sebaceous labial cyst she wishes to removed. Risks of the procedure were reviewed with the patient and she agrees to proceed. The permanent irreversible nature of the salpingectomy was reviewed in addition with the increased risk of ectopic . has been complicated by the patient's history of pulmonary embolism and factor V Leiden for which she has been taking Lovenox until 36 weeks which was changed to heparin. labs A-positive, rubella immune, RPR negative, hepatitis-B surface antigen negative, HIV negative, group B strep negative. Review of Systems Review of Systems: not repeated day of surgery; patient states no changes in status PMFSH Past Medical History Medical History (Updated 03/08/25 @ 07:14 by Noemy Flores MD) Factor 5 Leiden mutation, heterozygous Pulmonary embolus Depression Surgical History Surgical History (Updated 03/08/25 @ 07:14 by Noemy Flores MD) S/P urethral diverticulectomy History of cholecystectomy History of x2 Family History Family History Grandparent Acute myocardial infarction Cerebrovascular accident Cancer of eye Diabetes mellitus Social History Social History Social History: the patient stated that she used to smoke other people cigarettes but did not find cigarettes on her home. She would just smoke socially and drinks socially. She stated that she would by cigarettes but is somebody else had a cigarette she would smoke it. She smoked marijuana in the past but not recently. Her is a durable power real estate associate attorney for healthcare. She works for [employer]. She has 2 children. She desires to be a full code. Smoking status: Never smoker Tobacco type: cigarettes Second hand tobacco smoke exposure: No Additional smoking assessment comments: socially smoked about once a week for about 4 years Alcohol intake: current Drinks per week: 3 Substance use: never Substance use type: does not use Do You Feel Safe in your Home?: Yes Lack of Transportation: No Lack of Food: Never True Current Housing: I Have Housing Concerned About Future Housing: No Difficulty Paying Gas/Electric Bills: No Difficulty Paying for Meds: No Currently Unemployed: No Education: High School Diploma/GED Difficulty w/ Childcare or Family Care: No Gender identity (if verbalized by the patient): Female Spiritual care concerns: No Meds Home Medications and Allergies Home Medications ?Medication ?Instructions ?Recorded ?Confirmed ?Type multivitamin 1 tablet PO DAILY 05/15/20 03/08/25 History rivaroxaban 15 mg tablet (Xarelto) 15 mg PO BIDWM #40 tabs 05/16/20 03/04/25 Rx rivaroxaban 20 mg tablet (Xarelto) 20 mg PO DAILY@1700 #28 tabs 05/16/20 03/04/25 Rx heparin (porcine) 5,000 unit/mL (1 5,000 unit subcut Q12H 03/04/25 03/08/25 History mL) injection cartridge ergocalciferol (vitamin D2) 1,250 1,250 mcg PO 2XW 03/08/25 03/08/25 History mcg (50,000 unit) capsule (Vitamin D2) vit no.95-ferrous 1 tablet PO DAILY 03/08/25 03/08/25 History fumarate 28 mg-folic acid 800 mcg tablet () Allergies Allergy/AdvReac Type Severity Reaction Status Date / Time No Known Allergies Allergy Verified 03/08/25 06:28 Vital Signs Vital Signs - 24 hr 03/08/25 06:05 03/08/25 06:18 Pulse Rate 95 Blood Pressure 120/67 Oxygen Delivery Room Air Exam Const: General: comfortable, no acute distress and obese (Pre weight 231 recent weight 273) Orientation/consciousness: patient oriented x3 Resp: Effort & Inspection: normal respiratory effort GI: GI Palp: Yes Soft to palpation, No Tenderness to palpation present (GI) and Yes Other GI palpation findings present (Fundal height 39cm) Auscultation: other ( heart tones reactive) : External Female Exam: other (Sebaceous cyst on the right labia) Speculum Exam - Vagina: normal appearance of the vagina and normal vaginal discharge Speculum Exam - Cervix: normal appearance of the cervix Neuro: General: patient oriented x3 Assessment and Plan Assessment and plan (1) 39 weeks gestation of : Code(s): Z3A.39 - 39 weeks gestation of Status: Acute (2) History of : Code(s): Z98.891 - History of uterine scar from previous surgery Status: Acute Assessment and Plan: Plan to proceed with repeat section (3) Encounter for sterilization: Code(s): Z30.2 - Encounter for sterilization Status: Acute Assessment and Plan: Plan to proceed with bilateral salpingectomy (4) Sebaceous cyst of labia: Code(s): N90.7 - Vulvar cyst Status: Acute Assessment and Plan: Plan to proceed with cyst excision on the right labia (5) Pulmonary embolism: Qualifiers: Acute cor pulmonale presence: without acute cor pulmonale Chronicity: acute Pulmonary embolism type: unspecified Qualified Code(s): I26.99 - Other pulmonary embolism without acute cor pulmonale Code(s): I26.99 - Other pulmonary embolism without acute cor pulmonale Status: Acute Assessment and Plan: Plan to change back to Lovenox 80mg daily postop for 6 weeks (6) Factor 5 Leiden mutation, heterozygous: Code(s): D68.51 - Activated protein C resistance Status: Chronic
--- NOTE | 2025-03-08 08:05 | S_PTH ---
PATIENT: Dinora Singh LOC: [facility] U#:[id number] AGE/SX: 39/F ROOM: 281 RE03/08/[address]: Noemy Flores MD : [id number] BED: 00 DIS: 03/10/2025 SPEC #: [id number] RECD: 03/09/25 07:52 STATUS: JACOBO RENestor #: [id number] HERMELINDO: 03/08/25 08:[address]: Noemy Flores DEPT: [facility] Surgical RECD BY: Yara Prasad ENTERED: 03/09/25 07:52 SP TYPE: Surgical OTHR DR: J Carlos AraujoMD Tissues: A - Fallopian Tube Bilateral Procedures: Gross and Microscopic Level 2 Hematoxylin and Eosin Stain
--- NOTE | 2025-03-08 08:28 | W.PM.OBCSD ---
OB - Delivery Note Procedure Delivery date: 03/08/25 Pre-op diagnosis: Previous Delivery (X2) and Other (Intrauterine at 39 weeks, requests sterilization, right labial cyst, factor 5 Leiden with history of pulmonary embolism) Post-op Diagnosis: Same Induction method: None Delivery monitor: External FHT and External Uterine Prior to decision for section, ACOG/SM labor guidelines were considered and discussed with the patient and staff. Decision made to proceed with the section.: Yes Procedure Performed: Repeat Secondary branch: low cervical, transverse, Tubal Ligation and Other (Excision of right labial cyst) Surgeon: Noemy Flores MD Anesthesia type: Spinal Description of Procedure/Findings: The patient was taken to the operating room and placed under anesthesia in the dorsal supine position with a leftward tilt. Once anesthesia was deemed adequate, the patient was prepped and draped in the usual sterile fashion. The Pfannenstiel skin incision was made through the prior incision and carried down to the underlying layer of fascia. The fascial incision was extended laterally using Milton scissors was some difficulty due to dense adhesions. The rectus muscles were dissected off while tenting with [facility] was and using sharp dissection. The peritoneum was entered during this process. The peritoneal incision was extended with blunt traction. The bladder blade was placed and the vesicouterine peritoneum is grasped with a Peon and entered with Metzenbaum scissors. The incision was extended laterally and the bladder flap created digitally. The replaced. The lower uterine segment was incised in transverse fashion with the scalpel. The infant's head was brought into the incision and while elevating the vertex the pharmacy innovation assistant was applying fundal pressure delivering the head. Nuchal cord x1 was reduced and the remainder of the was delivered without difficulty. Delayed cord clamping for 1minute. The cord was then clamped and cut the handed to the waiting nursery nurse. The placenta was removed using manual traction due to the cord attempting to tear. The uterus was cleared of all clots and debris and exteriorized. The uterine incision was closed using 0 Monocryl in a running locked fashion with the same suture used to imbricate 1 additional [id number] suture was required on the left midline. Attention was turned to the tubes. The right tube was noted to be densely adherent to the ovary. The midportion of tube was grasped with a Elana and the midportion of tube is crossclamped using a Z clamp. The tube was excised and the pedicle tied off using a Paco stitch and a free tie. Good hemostasis is obtained. The same procedure was performed on the left side due to the tube again being densely adherent to the ovary. Again good hemostasis is noted. The uterine incision was again inspected and noted to be hemostatic. The cul-de-sac is irrigated and the uterus returned to the abdomen. One additional visualization reveals hemostasis at all pedicles. The fascia was then closed using 0 Vicryl in a running fashion. Subcutaneous tissues are irrigated made hemostatic using Bovie cautery. Skin is closed using 4-0 Vicryl in a subcuticular fashion. Dermaflex was placed over the incision. Attention is turned to the perineum which is washed with Betadine scrub. The labia minora sebaceous cyst is grasped anteriorly and posteriorly with pickups putting it on tension. The intervening tissue was incised with a scalpel. The thick sebaceous material is expulsed until the cyst is clean. The base of the cyst is grasped with a pickup and excised with scissors. The skin was closed using 3-0 Vicryl in a running stitch. Good hemostasis noted. Sponge, needle, and instrument counts are correct per the OR staff. Patient was taken to recovery in stable condition. Patient received Ancef prior to incision. Estimated Blood Loss: 715 Drains: Yes (Matt catheter) Packing: No Pathology: Yes (Bilateral tubal segments) Complications: No immediate complications Condition: Stable Disposition: [place] Baby Date of : 03/08/25 Gestational Age by Date: 39 gender: Female Weight (pounds): 7 Weight (ounces): 4 presentation: vertex position: Right Occiput Anterior Placenta delivery description: Spontaneous Cord Vessel Description: Nuchal Cord and Delayed Cord Clamping score one minute: 8 score five minutes: 8
--- NOTE | 2025-03-08 08:36 | PM.OBDSVD ---
DS: Admitting Diagnosis Discharge Date 03/10/25 Admitting Diagnosis Intrauterine at 39 weeks Previous section x2 Request tubal ligation Right sebaceous cyst Factor 5 Leiden with history of pulmonary embolism DS: Discharge Diagnosis Discharge Diagnosis (1) Delivery by section using transverse incision of lower segment of uterus: Code(s): O82 - Encounter for delivery without indication Status: Acute (2) Status post tubal ligation: Code(s): Z98.51 - Tubal ligation status Status: Acute (3) Vulvar cyst: Code(s): N90.7 - Vulvar cyst Status: Acute Assessment and Plan: Status post Right labial sebaceous cyst excision (4) Factor 5 Leiden mutation, heterozygous: Code(s): D68.51 - Activated protein C resistance Status: Chronic (5) Pulmonary embolism: Qualifiers: Acute cor pulmonale presence: without acute cor pulmonale Chronicity: acute Pulmonary embolism type: unspecified Qualified Code(s): I26.99 - Other pulmonary embolism without acute cor pulmonale Code(s): I26.99 - Other pulmonary embolism without acute cor pulmonale Status: Acute Assessment and Plan: History OB - DS: Summary OB Procedures : NST and Ultrasound OB Procedures Intrapartum: low cervical, transverse, Tubal ligation and Other (Excision of right labial cyst) OB Procedures: : None Peripartum Data Infant Delivery Method: Section Procedures: Procedures Operation Date: 03/08/25 07:30 <No data on this case meets the specified criteria> complications: none Status at Discharge Functional status at discharge: independent ambulation Overall status at discharge: patient is progressing back to baseline Time Spent with Patient Time attestation: Total time spent providing and/or coordinating discharge services: DS: Data Data Completed and Pending Labs on day of discharge: Labs from last 24 hours 03/08/25 06:02 HIV 1&2 Ab/P24 Ag 4thGn Negative Discharge Plan Discharge Attending physician on discharge: Noemy Flores Discharging Clinician: Noemy Flores Anticipated Discharge Date/Time: 03/11/25 08:38 Patient Disposition: Home Activity: may shower, may drive after 2 weeks and pelvic rest Diet: regular Wound Care Instructions: incision open to air Patient Instructions: Antibiotic Form Patient Language: Lithuanian Stand Alone Forms: General Discharge Information Follow-up/Referrals: Noemy Flores MD [Physician] - 1 Week (And 6 weeks) Discharge Medications: New oxycodone-acetaminophen 5-325 mg Tablet 1 tablet PO Q4H PRN (Reason: Pain Rated 4-6) Qty: 20 0RF enoxaparin [Lovenox] 80 mg/0.8 mL Syringe 80 mg subcut Q12HR Qty: 8 0RF Continued PNV cmb#95-ferrous fumarate-FA [] 28 mg iron- 800 mcg tablet 1 tablet PO DAILY ergocalciferol (vitamin D2) [Vitamin D2] 1,250 mcg (50,000 unit) capsule 1,250 mcg PO 2XW Discontinued multivitamin Tablet 1 tablet PO DAILY Xarelto 15 mg Tablet 15 mg PO BIDWM Qty: 40 0RF Rx Instructions: Take 1 tablet by mouth twice daily. Start tomorrow am, 05/17, end pm of 06/05. Then start daily dosing thereafter Xarelto 20 mg Tablet 20 mg PO DAILY@1700 Qty: 28 0RF Rx Instructions: Take 1 tablet by mouth every evening until further instruction from PCP. Start evening of 06/06 heparin (porcine) 5,000 unit/mL (1 mL) cartridge 5,000 unit subcut Q12H Date of admission: 03/08/25 05:25 Primary Care Provider: Van,J Carlos Admitting Provider: Noemy Flores Attending physician on admission: Noemy Flores Condition: Stable
[2025-03-08] MEDS: fentaNYL CITRATE INJ (*CRX) 100 MCG/2 ML VIAL 25 MCG IV PUSH ×3 (10:13→10:49)
--- NOTE | 2025-03-08 10:53 | OBPPTRN ---
Patient transferred to post room #281 via stretcher. Support person present. Oriented to unit, room, information board, rooming in, admission packet and security measures. Patient verbalizes understanding.
[2025-03-08] MEDS: OXYTOCIN 30 UNITS/NS 500 ML 30 UNITS/500 ML BAG 125 UNITS IV CONT (11:13)
[2025-03-08] MEDS: SIMETHICONE 80 MG TAB.CHEW PO ×2 (11:50→19:00)
[2025-03-08] MEDS: MULTIVIT/MIN/PREN/FOL AC/IRON TABLET 1 TAB PO (11:50)
[2025-03-08] MEDS: LORATADINE 10 MG TABLET (11:53)
--- NOTE | 2025-03-08 12:01 | PC.NURSE ---
[id number]. Introductions were made, then consulted with patient to assess needs related to . Discussed with mother her plans to feed her infant and the experience so far. Mom states she take Xaralto for blood clots and would like to know if that is okay to take while . Mom reports she did attempt to BF her previous child, but had issues with low milk supply. She reports she plans to breastfeed/combo feed for 16 weeks until she goes back to work. She states she would like a pump in her room to have that as a option. Encouraged mother to express any questions or concerns she has regarding feedings. Advised her to call out for a latch check or if she needs assistance waking or positioning baby. Reviewed the blue feeding worksheet for required output and feeding at least 8-12 times every 24 hours. Resources provided for inpatient and outpatient services with the feeding sheet, mom/baby guide, and name/number written on the communication board. Mother voiced understanding of information and will call if there is a request for assistance. Breast pump provided due to maternal preference. Instructions given on cleaning, care, usage, that there should be no pain, pumping schedule for milk production, collection, and storage of human milk. Patient was assessed for correct placement, flange size, to pump for comfort and nipple stretching/stimulation for adequate milk production every 3 hours (8 times in 24 hours) 1-2 times at night. Parents are encouraged to record the pumping schedule on the feeding sheet.?Mother voiced understanding of the education shared along with mom/baby guide and the pump measurement, flange fit handout for additional resource information. Reported to the Primary RN.
[2025-03-08] MEDS: ENOXAPARIN 80 MG/0.8 ML SYRINGE SUB-Q ×2 (12:14→22:52)
[2025-03-08] MEDS: ACETAMINOPHEN 325 MG TABLET 650 MG PO ×2 (12:15→19:00)
[2025-03-08] MEDS: LIDOCAINE 5% PATCH 1 PATCH TRANSDERM (16:00)
[2025-03-08] MEDS: HYDROcodone/acetaminophen (*CRX) 10-325 MG TABLET 1 TAB PO ×2 (16:00→22:52)
[2025-03-08] MEDS: DOCUSATE SODIUM 100 MG CAPSULE PO (19:00)
[2025-03-09] MEDS: ACETAMINOPHEN 325 MG TABLET 650 MG PO ×4 (03:00→23:45)
[2025-03-09 04:06] LABS: Basophils Percent Auto 0.5 % (0.2-1.2); Eosinophils Absolute Auto 0.1 K/mm3 (0-0.3); Eosinophils Percent Auto 1.1 % (0-4.4); Hematocrit 33.1 % (37.0-47.0); Hemoglobin 10.4 g/dL (12.0-15.0); Immature Granulocyte Absolute 0.07 K/mm3 (0.00-0.031); Immature Granulocyte Percent A 0.8 % (0-0.5); Lymphocytes Absolute Auto 1.82 K/mm3 (0.9-3.2); Lymphocytes Percent Auto 21.5 % (18.3-44.2); Mean Corpuscular HGB Conc 31.4 g/dl (32-36); Mean Corpuscular Hemoglobin 28.5 pg (26-34); Mean Corpuscular Volume 90.7 fl (80-100); Mean Platelet Volume 10.8 fl (7.4-10.4); Monocytes Absolute Auto 0.6 K/mm3 (0.1-0.6); Monocytes Percent Auto 7.3 % (2.6-8.5); Neutrophils Absolute Auto 5.8 K/mm3 (1.3-6.7); Neutrophils Percent Auto 68.8 % (45.5-73.1); Platelet Count Result 166 k/mm3 (150-375); Red Blood Count 3.65 M/mm3 (4.2-5.4); Red Cell Distribution Width 15.9 % (11.5-14.5); White Blood Count 8.5 K/mm3 (4.5-10.0)
--- NOTE | 2025-03-09 07:29 | PM.OBPNVD ---
OB - PN: Subj Subjective Date/time seen: 03/09/25 07:29 Patient comments: no complaints and pain well controlled baby status: other (vomiting a lot) OB - PN: Obj Data Labs 03/09/25 03:04 Labs: Laboratory Results - last 24 hr 03/09/25 03:04 WBC 8.5 RBC 3.65 L Hgb 10.4 L Hct 33.1 L MCV 90.7 MCH 28.5 MCHC 31.4 L RDW 15.9 H Plt Count 166 MPV 10.8 H Immature Gran % (Auto) 0.8 H Neut % (Auto) 68.8 Lymph % (Auto) 21.5 [place] % (Auto) 7.3 Eos % (Auto) 1.1 Baso % (Auto) 0.5 Lymph # (Auto) 1.82 [place] # (Auto) 0.6 Eos # (Auto) 0.1 Baso # (Auto) 0.0 Abs Immat Gran (auto) 0.07 H Absolute Neuts (auto) 5.8 Absolute Nucleated RBC 0.000 Nucleated RBC % 0.0 OB - PN A/P Plan day: 1 Plan: routine care Time Spent With Patient Time: Total time spent is greater than 50% in coordination of care (as documented) at patient's floor/unit and/or counseling patient: Exam Narrative: inc c/d/i : Bimanual exam- vagina & uterus: other (Uterus firm, nt @U)
[2025-03-09] MEDS: DOCUSATE SODIUM 100 MG CAPSULE PO ×2 (07:36→16:16)
[2025-03-09] MEDS: MULTIVIT/MIN/PREN/FOL AC/IRON TABLET 1 TAB PO (07:36)
[2025-03-09] MEDS: SIMETHICONE 80 MG TAB.CHEW PO ×3 (07:36→16:16)
[2025-03-09] MEDS: HYDROcodone/acetaminophen (*CRX) 10-325 MG TABLET 1 TAB PO ×3 (08:29→19:15)
[2025-03-09 08:40] VITALS: BP 105/64; PULSE 91; RESP 16; TEMP 37.3; O2SAT 97
[2025-03-09] MEDS: ENOXAPARIN 80 MG/0.8 ML SYRINGE SUB-Q ×2 (12:03→23:45)
--- NOTE | 2025-03-09 12:10 | WPDANLDPN2 ---
Anes-Prog Note L&D Date/Time: 03/09/25 12:10 Comfortable throughout: section Neuraxial method: spinal Epidural/Spinal procedure site: clean & non-tender Neuro status: Neuro function grossly intact. Cardiovascular status: normal Respiratory status: normal Airway patency: baseline Mental status: baseline Post-Op hydration status: normal Vital Signs: Last Vital Signs Temp 37.3 C 03/09/25 08:40 Pulse 91 03/09/25 08:40 Resp 16 03/09/25 08:40 BP 105/64 03/09/25 08:40 Pulse Ox 97 03/09/25 08:40 O2 Del Method Room Air 03/08/25 22:50 Pain score (VAS): 310 I/O: Intake & Output 03/08/25 03/09/25 03/09/25 23:59 07:59 15:59 Output Total 1300 Balance -1300 Post-procedural complaints: none Patient feedback: Patient satisfied with anesthetic care.
--- NOTE | 2025-03-09 12:11 | WPDANLDNPN2 ---
Anes-Prog Note L&D-Neuraxial Date/Time: 03/09/25 12:11 Neuraxial medications: intrathecal PF morphine Opiod-related complaints: pruritis moderate, treatment effective Patient feedback: Patient satisfied with post-operative pain management.
--- NOTE | 2025-03-09 14:50 | PC.NURSE ---
1450. Introductions were made, then consulted with patient to assess needs related to . Mom is still combo feedng, & has been pumping and attempting to latch infant at the breast on her own independently. Mom states she prefers to breastfeed and supplement after until she feels better about her milk being fully in. Mom reports a little tenderness with pumping we assessed her flange size to ensure she was using the correct size. Lanolin and hydrogel pads also provided to mom. Resources provided for inpatient and outpatient services with the feeding sheet, mom/baby guide and name written on the communication board. Mother voiced understanding of information and will call if there is a request for assistance. Reported to the Primary RN.
[2025-03-09] MEDS: LIDOCAINE 5% PATCH 1 PATCH TRANSDERM (16:16)
[2025-03-09 19:15] VITALS: BP 100/63; PULSE 86; RESP 20; TEMP 36.8; O2SAT 96
[2025-03-09] MEDS: oxyCODONE/ACETAMINOPHEN (*CRX) 10-325 MG TABLET 1 TAB PO (23:45)
[2025-03-10] MEDS: oxyCODONE/ACETAMINOPHEN (*CRX) 10-325 MG TABLET 1 TAB PO ×2 (04:06→08:41)
[2025-03-10] MEDS: ACETAMINOPHEN 325 MG TABLET 650 MG PO (06:59)
--- NOTE | 2025-03-10 07:50 | P.PNOB_ITS ---
OB - PN: Subj Subjective Date/time seen: 03/10/25 07:50 Patient comments: other (c/o back pain near epidural site) [place] baby status: doing well OB - PN: Obj Data Labs 03/09/25 03:04 OB - PN A/P Plan day: 2 Plan: routine care and discharge home Time Spent With Patient Time: Total time spent is greater than 50% in coordination of care (as documented) at patient's floor/unit and/or counseling patient: Exam 2 Narrative: inc c/d/i back bruised to right of midline near epidural site : Bimanual exam- vagina & uterus: other (Uterus firm, nt @U)
[2025-03-10 08:20] VITALS: BP 106/66; PULSE 89; RESP 16; TEMP 36.7; O2SAT 99
[2025-03-10] MEDS: SIMETHICONE 80 MG TAB.CHEW PO (08:41)
[2025-03-10] MEDS: DOCUSATE SODIUM 100 MG CAPSULE PO (08:41)
[2025-03-10] MEDS: MULTIVIT/MIN/PREN/FOL AC/IRON TABLET 1 TAB PO (08:41)
--- NOTE | 2025-03-10 09:05 | PC.NURSE ---
Introductions were made, then consulted with patient to assess needs related to . Mother states that she is independently pumping and supplementing with formula per preference and denies any questions at this time. Communication board was updated with contact information should any questions arise.
[2025-03-11 09:28] VITALS: BP 116/61; PULSE 85; RESP 18; TEMP 36.6; O2SAT 98
== END 2025-03-10 11:22 | disposition home or self-care (01) | DRG 784 ==
LOC: ANHLDR 08:39 → ANHOB2 10:55
PROVIDERS: Admitting Provider Obstetrics & Gynecology Gynecology; PCP Family Medicine; Visit Provider Obstetrics & Gynecology Gynecology
PROC: 10D00Z1 Extraction of Products of Conception, Low, Open Approach (ICD-10-PCS; CPT 59514; principal; 2025-03-08 07:30)
PROC: 10D00Z1 Extraction of Products of Conception, Low, Open Approach (ICD-10-PCS; 2025-03-08 07:30)
DX: O34.219 Maternal care for unspecified type scar from previous cesarean delivery (principal); D68.51 Activated protein C resistance; O99.12 Other diseases of the blood and blood-forming organs and certain disorders involving the immune mechanism complicating childbirth; Z30.2 Encounter for sterilization; N90.7 Vulvar cyst; Z86.711 Personal history of pulmonary embolism; Z79.01 Long term (current) use of anticoagulants; Z3A.39 39 weeks gestation of pregnancy; Z37.0 Single live birth; Z90.49 Acquired absence of other specified parts of digestive tract; O69.81X0 Labor and delivery complicated by cord around neck, without compression, not applicable or unspecified; N94.89 Other specified conditions associated with female genital organs and menstrual cycle
CPT/HCPCS: 36415; 85025; 86703; 88302; A9270; G0432; J1650; J2250; J2274; J2405; J2590; J3010; J7120